=== PATIENT | male | born 1975 | race African-American/Black ===

== ENCOUNTER → 2017-04-09 18:26 | Outpatient (CLI) | payer MEDICAID, SELFPAY | PROVIDERS: Visit Provider Podiatrist | DX: L02.416 Cutaneous abscess of left lower limb (principal) | CPT/HCPCS: 87070; 87077; 87205 ==

== ENCOUNTER 2017-04-22 13:50 | Day surgery (SDC) | payer MEDICAID, SELFPAY ==
--- NOTE | 2017-04-22 13:59 | EKG12_ITS ---
Test Reason : PRE-OP Blood Pressure : / mmHG Vent. Rate : 077 BPM Atrial Rate : 077 BPM P-R Int : 168 ms QRS Dur : 092 ms QT Int : 380 ms P-R-T Axes : 077 020 056 degrees QTc Int : 430 ms Normal sinus rhythm Right atrial enlargement Voltage criteria for left ventricular hypertrophy Abnormal ECG When compared with ECG of 22-OCT-2015 23:41, No significant change was found Confirmed by NEISHA PRATT, KRISTAL ([id number]), market editor MANUEL AKERS ([id number]) on 04/24/2017 2:36:29 PM Referred By: Sergio Neil Confirmed By:KRISTAL DRIVER MD
--- NOTE | 2017-04-22 14:00 | RAD_ITS ---
STUDY: X-RAY - LEFT ANKLE REASON FOR EXAM: Male, 41 years old. Bone biopsy and also debridement. TECHNIQUE: 3 cone-down view(s) of the ankle were obtained intraoperatively. COMPARISON: None. FINDINGS: A metallic probe is seen in the distal portion of the tibia. RAD/Ankle 2 Views IMPRESSION: Fluoroscopic imaging provided for bone biopsy and also debridement. Electronically Signed: Dakota Blackwell MD at 9:13 EST Tel [phone], Service support ,
--- NOTE | 2017-04-22 14:00 | BONBX_PTH ---
PATIENT: JAKUB TRAN LOC: [facility] [place] U#:[id number] AGE/SX: 41/M ROOM: RE04/22/[address]: Dr. Sergio Neil DPM : 1975 BED: DIS: 04/22/2017 SPEC #: [id number] RECD: 04/23/17 08:39 STATUS: JASVIR REKimberly #: [id number] KHURRAM: 04/22/17 14:[address]: Sergio Neil DEPT: SURGICAL PATHOLOGY RECD BY: Chin Brooks ENTERED: 04/23/17 12:21 SP TYPE: Bone OTHR DR: No Primary Care Phys Tissues: Tibia, NOS Procedures: Decalcification bone/plaque Surgery Specimen Level IV HEADER OPERATION: Bone biopsy, ankle PRE-OP DIAGNOSIS: Nonunion left ankle TISSUE SUBMITTED: Left ankle bone distal tibia MICROSCOPIC DIAGNOSIS Left distal tibia/ankle bone, biopsy: Bone with osteonecrosis. Fibrous tissue with reactive change. AM:fabrice 04/29/17 COMMENT Case has been reviewed in consultation with Dr. Cardozo who concurs with the above diagnosis. IDC:KATE MICROSCOPIC DESCRIPTION Slides are reviewed. GROSS DESCRIPTION Received in fixative is one container labeled with the patient's name and designated left ankle bone distal tibia. The specimen consists of multiple fragments of bone that in aggregate measure 1.5 x 1 x 0.3 cm. The entire specimen is submitted in one cassette after decalcification. / SJ:fabrice 04/23/17 TC:5 CPT: 15016, 01905
[2017-04-22 14:05] VITALS: BP 140/80; PULSE 78; RESP 16; TEMP 36.9; O2SAT 96; BMI 19.7
[2017-04-22 14:20] LABS: Absolute Lymphocyte Count 2.41 X10^3/ul (0.83-4.51); Absolute Neutrophil Count 3.3 X10^3/uL (2.0-7.7); Basophil# 0.01 X10^3/uL; Basophil% 0.2 % (0-1); Eosinophil# 0.04 X10^3/uL; Eosinophils% 0.6 % (0-5); Hemoglobin 14.7 g/dl (13.0-16.5); Lymphocyte # 2.41 X10^3/ul (4.0); Lymphocyte % 37.5 % (19-41); Mean Corp Hgb Conc 35.9 g/gl (32-36); Mean Corpuscular Hgb 32.4 pg (27.0-32.0); Mean Corpuscular Volume 90.3 fL (80-94); Mean Platelet Vol. 10.6 fl (6.2-12.0); Monocyte# 0.61 X10^3/uL; Monocyte% 9.5 % (0-10); Neutrophil # 3.34 X10^3/uL (2.7-7.7); Neutrophil % 51.9 % (47-70); POSITIVE COUNT NO; POSITIVE DIFFERENTIAL NO; POSITIVE MORPHOLOGY NO; Platelet Count 181 K/mm3 (150-450); RBC Distribution Width CV 13.4 % (11.6-14.6); Red Blood Count 4.54 M/mm3 (4.6-6.2); White Blood Count 6.4 K/mm3 (4.4-11.0)
[2017-04-22 14:31] LABS: ALB/GLOB Ratio 1.1 RATIO (0.9-2.4); AST(SGOT) 17 U/L (15-37); Alanine Aminotransfer ALT/SGPT 18 U/L (16-61); Albumin, Serum 3.8 g/dL (3.2-5.0); Alkaline Phosphatase 90 U/L (45-117); Anion Gap 8 (5-15); BUN 14 mg/dL (7-18); BUN/Creat Ratio 14.3 RATIO (10-20); Calcium,Total 8.4 mg/dL (8.5-10.1); Chloride 106 mmol/L (98-107); Creatinine, Serum 0.98 mg/dL (0.70-1.30); EST Glomerular Filtration Rate 90 mL/min (>60); Est Glom Filt Rate - Afr Amer 108 mL/min (>60); Estimated Creatinine Clearance 96.23 ml/min; Globulin 3.5 g/dL (2.2-4.2); Glucose 94 mg/dL (74-106); Potassium 3.2 mmol/L (3.5-5.1); Protein, Total 7.3 g/dL (6.4-8.2); Sodium Level 140 mmol/L (136-145)
[2017-04-22] MEDS: Bupivacaine 0.25% 30 ML Vial (16:02)
[2017-04-22] MEDS: Cefazolin 2 GM in 0.9% Normal Saline 100 ML IV (16:02)
--- NOTE | 2017-04-22 16:10 | PCM.DC.POD ---
Discharge Diet: Light diet - advance as tolerated Discharge Activity: May Not Drive Weight Bearing Status: Partial weight bearing - Use crutches and CAM Walker boot left ankle Keep extremity elevated above heart level: Left Leg - Keep left foot elevated for at least 50 minutes of every hour Call your doctor if your incision/area has: Continuous Slow Oozing, Sudden Increased Bleeding, Foul Smelling Discharge Call your doctor if you observe: Fever of 101 or Higher, Coldness, Increased Pain, Shortness of breath, Chest pain, Increased palpitations (irregular heartbeat), Calf discomfort, Uncontrolled pain Cleanse incision/area with: Do not get Incision Wet, Keep Dressing Clean & Dry Allergies/Adverse Reactions: Allergies No Known Allergies Allergy (Verified 04/19/17 13:01) Medications to take at Discharge Hydrocodone Bitart/Apap 5-325 [[place] 5/325] 1 - 2 tablet PO Q4H PRN PRN #20 tablet 01/29/17 Amoxicillin/Potassium Clav [Augmentin 875-125 Tablet] 1 tab PO BID 04/19/17 Hydrocodone/Acetaminophen [Vicodin 5-300 mg Tablet] 1 tab PO Q6H PRN PRN 3 Days #15 tab 04/22/17 The following prescriptions were given: Hydrocodone/Acetaminophen [Vicodin 5-300 mg Tablet] 1 tab PO Q6H PRN PRN 3 Days #15 tab PRN Reason: Pain Primary Care Physician: Care Physician,No Primary [Primary Care Provider] - Please Follow Up With: Sergio Neil DPM When: within 1 week or sooner if needed
--- NOTE | 2017-04-22 16:14 | OP.PCM_ITS ---
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 He has developed 2 episodes of drainage from the site. Due to this, we discussed bone biopsy first for further evaluation. The rationale of the procedure was discussed with him in detail, reviewed the possible benefits vs risks, and potential complications. Reviewed the goals and expectations. Reviewed alternative options. Reviewed estimated healing time/ post operative course. The patient expressed understanding and agreement and elected to proceed forward with the biopsy for further evaluation at this time. The consent forms were reviewed with him, and he freely signed them. All of his questions were answered. Operative procedure: The patient was brought back into the operating room and was placed on the operating room in the supine position. The patient was secured to the operating room table with a safety belt around his waist. A well padded mid calf tourniquet was applied, but was not inflated or used. The patient received general anesthesia per the anesthesia team. The left lower extremity was scrubbed, prepped, and draped in the usual aseptic fashion. A time out was performed and the patient was properly identified and the surgical plan was confirmed. Pre operative antibiotics were not given until after the biopsy taken. Further attention was directed to the left ankle. There was noted to be a very small residual ulceration to the anterior ankle, measuring 1mm x 1mm, with healthy viable margins and granular base. Using a 15 scalpel blade a small linear longitudinal incision was made to the anterior lateral aspect of the ankle joint, medial to were the ulceration was located. Blunt dissection was completed down through the subcutaneous tissue layer to the anterior lateral ankle capsule, which was dissected to open up the ankle joint. Under the guidance of intra-operative fluoroscopy, and using the [employer] bone biopsy tray, 2 cylindrical pieces of bone were obtained from the nonunion site of the distal tibial plafond. The bone from the site was noted to be yellow , softer, and fibrotic consistent with a nonunion. These were sent to pathology and microbiology separately for further evaluation. There was no noted purulence , no visible abscess, no cellulitis present. Fluoroscopic images were saved and placed in patient's chart. The site was flushed out with copious amounts of normal saline solution. The skin was reapproximated using 3-0 Nylon. 0.25% Bupivacaine was given as a local nerve block around the surgical site and ankle for post operative pain control. A dressing was applied which consisted of Betadine soaked Adaptic, 4x4 gauze, Kerlix and cydney bandage. The patient tolerated the above procedure well and the anesthesia well with no complications. He was transported from the operating room to the recovery room with vital signs stable and in good condition. Post operative instructions were reviewed with patient and his family today. Keep the dressing clean, dry and intact. Keep ankle protected in CAM Walker, and use crutches. A prescription for Vicodin 5mg/300mg 1 tab PO q 6 hours prn pain was provided for post operative pain control. He is to follow up within 1 week or sooner if needed. Grafts/Implants Used: None - Complications None
[2017-04-22 16:27] VITALS: BP 121/82; BP 140/80; PULSE 66; RESP 16; TEMP 36.5; O2SAT 99
[2017-04-22 16:30] VITALS: BP 107/81; BP 140/80; PULSE 68; RESP 16; O2SAT 93
[2017-04-22 16:45] VITALS: BP 107/81; BP 140/80; PULSE 66; RESP 16; O2SAT 98
[2017-04-22 17:00] VITALS: BP 126/77; BP 140/80; PULSE 77; RESP 16; TEMP 36.4; O2SAT 100
[2017-04-22 17:41] VITALS: BP 140/80
== END 2017-04-22 17:43 | disposition home or self-care (01) ==
LOC: SDC 13:51
PROVIDERS: Visit Provider Podiatrist
PROC: (CPT 20240; principal; 2017-04-22 13:45)
DX: L97.324 Non-pressure chronic ulcer of left ankle with necrosis of bone (principal); S82.872K Displaced pilon fracture of left tibia, subsequent encounter for closed fracture with nonunion; X58.XXXD Exposure to other specified factors, subsequent encounter; I25.2 Old myocardial infarction; F12.90 Cannabis use, unspecified, uncomplicated; F17.200 Nicotine dependence, unspecified, uncomplicated
CPT/HCPCS: 01480; 20240; 73600; 76000; 80053; 85025; 87015; 87070; 87075; 87102; 87116; 87205; 87206; 88305; 88307; 88311; 93005; J7120; J2405

== ENCOUNTER → 2017-06-13 18:02 | Outpatient (CLI) | payer MEDICARE, MEDICAID, SELFPAY | PROVIDERS: Family Provider Family Medicine; PCP Family Medicine; Visit Provider Podiatrist | DX: L02.416 Cutaneous abscess of left lower limb (principal) | CPT/HCPCS: 87070; 87205 ==

== ENCOUNTER 2017-06-28 13:08 | Inpatient (IN) | payer MEDICARE, MEDICAID, SELFPAY ==
[2017-06-28] VITALS (9 sets, daily range): BP systolic 116–148; BP diastolic 57–78; PULSE 72–92; RESP 14–18; TEMP 36.4–37.1; O2SAT 94–100; BMI 20.2; BMI 20.4
--- NOTE | 2017-06-28 | BON_PTH ---
PATIENT: JAKUB TRAN LOC: [facility] U#:[id number] AGE/SX: 41/M ROOM: NC321 RE06/29/[address]: Dr. Avis Xiao MD : 1975 BED: 1 DIS: 06/29/2017 SPEC #: [id number] RECD: 06/28/17 14:52 STATUS: JASVIR REKimberly #: [id number] KHURRAM: 06/28/17 00:[address]: Sergio Neil DEPT: SURGICAL PATHOLOGY RECD BY: Pedro Pablo Enamorado ENTERED: 06/28/17 14:52 SP TYPE: Bone OTHR DR: Dr. Ya Cavazos MD Tissues: Ankle, NOS Procedures: Decalcification bone/plaque Surgery Specimen Level III HEADER OPERATION: Left tibial pilon fracture nonunion debridement with ankle fracture PRE-OP DIAGNOSIS: Left ankle fracture TISSUE SUBMITTED: Debrided left ankle, nonunion MICROSCOPIC DIAGNOSIS Debrided left ankle, nonunion: Pieces of bone with reactive changes and callous formation, clinically ankle fracture. Negative for acute osteomyelitis. KATE:fabrice 07/03/17 MICROSCOPIC DESCRIPTION Slides are reviewed. GROSS DESCRIPTION Received in fixative is one container labeled with the patient's name and designated debrided left ankle nonunion. The specimen consists of multiple pieces of bone and bone reamings that in aggregate measure 4.5 x 4.5 x 1.5 cm. Validation Scientist tissue is submitted in two cassettes after decalcification. / KATE:fabrice 06/28/17 TC:5 CPT: 14609, 01724
[2017-06-28] MEDS: Cefazolin 2 GM in 0.9% Normal Saline 100 ML IV (07:23)
--- NOTE | 2017-06-28 07:30 | RAD_ITS ---
STUDY: X-RAY - LEFT ANKLE REASON FOR EXAM: Left tibial pylon fracture with nonunion. TECHNIQUE: 2 fluoroscopic view(s) of the ankle. COMPARISON: None. FINDINGS: There is orthopedic hardware transfixing tibiotalar and posterior subtalar arthrodesis and chronic fracture of the distal tibia. There is also orthopedic hardware transfixing a healing fracture of the distal fibular diaphysis. Electronically Signed: Tyron Abbott MD at 13:52 EDT Tel , Service support , RAD/Ankle 2 Views
[2017-06-28] MEDS: levoFLOXacin IV 750 MG/150 ML BAG 100 MG IV (07:40)
[2017-06-28] MEDS: Heparin 10,000 UNITS/10 ML Vial 10000 UNITS (08:15)
[2017-06-28 08:19] LABS: Vitamin D,25 Hydroxy 10.7 ng/mL (29.95-100.01)
[2017-06-28] MEDS: Bupivacaine Mpf 0.5% 30 ML VIAL (11:45)
--- NOTE | 2017-06-28 12:03 | PCM.OPRPT ---
Report of Operation Date of Procedure: 06/28/17 - Laurence Neil DPM Pre-Operative Diagnosis: Tibial Pilon fracture nonunion left Post-Operative Diagnosis: Same Surgery/Procedure Performed:: Debridement of left tibial pilon fracture nonunion with tibiotalocalcaneal arthrodesis. Bone marrow aspiration and placement of bone graft at arthrodesis site, left. 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 He has developed several episodes of drainage from the site. Bone biopsy was negative for growth, negative for osteomyelitis. Due recurrent symptoms and given findings, he has elected to proceed forward with debridement of the nonunion with bone grafting, bone marrow aspiration, and fixation of the site. The rationale of the procedure was discussed with him in detail, reviewed the possible benefits vs risks, and potential complications. Reviewed the goals and expectations. Reviewed alternative options. Reviewed estimated healing time/post operative course. The patient expressed understanding and agreement and elected to proceed forward with the biopsy for further evaluation at this time. The consent forms were reviewed with him, and he freely signed them. All of his questions were answered. Operative procedure: The patient was brought back into the operating room and was placed on the operating room in the supine position. The patient was secured to the operating room table with a safety belt around his waist. The patient received 2 grams of IV Cephazolin as well as 750mg of IV Levaquin for antibiotic prophylaxis. A well padded pneumatic tourniquet was applied around his left thigh. The patient received general anesthesia per the anesthesia team. The left lower extremity was scrubbed, prepped, and draped in the usual aseptic fashion. Small ulceration anterior ankle was covered with a sterile post op site bandage The patient was carefully placed into the prone position on the operating room table, being sure to pad and protect all [place] prominences and all important areas on the patient. A timeout was performed and the patient was properly identified and the surgical plan was confirmed. A Jamshidi needle was inserted into the proximal medial tibia, a total of 60mL of bone marrow aspirate was obtained. This was spun down to concentrated bone marrow aspirate to be mixed with the cancellous bone chips. The left foot was elevated for 3 minutes and the left thigh pneumatic tourniquet was inflated to 350mmHg. Further attention was directed to the left ankle. Using a 15 scalpel blade an incision was made overlying the posterior subtalar and ankle joints, posterior to the Achilles tendon. Careful dissection was completed down to the Achilles tendon. The Achilles tendon was incised in Z fashion, splitting the tendon longitudinally down the middle. There was a proximal medial arm and a distal lateral arm to complete the Z tenotomy. Blunt direction was completed down to the posterior subtalar joint and ankle joint capsules, the medial neurovascular bundle was protected out of the away medially. The flexor hallucis longus tendon and muscle belly were identified and reflected medially as well. The posterior ankle joint and subtalar joint capsules were visualized. There was noted to be hypertrophy and thickening of the ankle joint capsule. The capsules were incised using a 15 scalpel blade and reflected from the posterior aspect, exposing the joint surfaces, along with exposing the tibial pilon nonunion site. There was noted to be nonviable fibrotic avascular tissue to the nonunion site. There was noted to be residual Hydroset bone cement present. There was no purulence or evidence of abscess present. The nonunion site was debrided down to healthy, viable tissue, the debrided tissue was sent to pathology as specimen. All of the cartilage of the ankle joint was debrided and removed from the bone ends, this was completed down to healthy viable bleeding bone. The subtalar joint was visualized, the joint surfaces were prepped by removing all of the cartilage from the subtalar joint. All of the cartilage of the subtalar joint was debrided and removed from the bone ends, this was completed down to healthy viable bleeding bone. This was completed using curettes, bone cutting rongeurs, as well as a bone bur being sure not to create osteonecrosis. The site was flushed out with copious amounts of normal saline solution. The ankle joint and the subtalar joint surfaces were drilled / fenestrated with a 3.0mm drill multiple times, also they were prepped with an small osteotome to enhance and aid vascularity and fusion to the arthrodesis sites. The arthrodesis surfaces of the ankle and subtalar joints were coated with [employer] Augment graft to also aid the healing of the arthrodesis. Due to the significant nonunion site, which was debrided out, there was a residual void to the ankle fusion site. The nonunion site as well as the arthrodesis sites were packed with cancellous bone allograft mixed with the bone marrow aspirate concentrate to aid healing. A total of 50mL of cancellous bone allograft was used, most of which was needed for the ankle arthrodesis and nonunion debridement site to fill the void. The foot was placed at 90 degrees to the leg, and the heel in slight valgus, and the prepped ankle and subtalar joints surfaces were brought together. They were fixated using rigid open reduction internal fixation technique. First one 7.0mm partially [employer] 120mm in length screw was placed from the posterior plantar calcaneus going up through the subtalar and ankle arthrodesis sites to the anterior tibia. A washer was used on the screw head. There was excellent bite and compression across the arthrodesis sites. One [employer] posterior TTC locking plate with a total of eight locking [employer] screws and two nonlocking cortical [employer] screws were used to secure the plate across the arthrodesis sites. Once hardware was placed, there was excellent stability present with good alignment present. Alignment and placement were confirmed using intra operative fluoroscopy. The ankle and subtalar joints were rigidly fixated, very stable, and in good alignment. The talus noted to be under the tibial, and clinically the foot was plantigrade with neutral flexion, heel in slight valgus position. The surgical site was flushed out with copious amounts of normal saline solution. The thigh pneumatic tourniquet was deflated and there was immediate return of warmth and perfusion. CFT < 2 seconds to all toes, and normal temperature present. Pedal pulses were intact. Hemostasis was achieved prior to closure. The joint capsules and deep fascia layer were reapproximated using 2-0 Vicryl, the sides of the Achilles tendon were brought together and reapproximated using 3-0 Vicryl, the subcutaneous tissue layer was reapproximated using 3-0 Vicryl. The skin was reapproximated using 3-0 Nylon. 10mL of 0.5% Bupivacaine was given as a saphenous nerve block. A dressing was applied which consisted of Betadine soaked Adaptic, 4x4 gauze, Kerlix, cydney bandages, and a well padded below knee posterior splint secured with cydney bandages. The patient received a left lower extremity popliteal block by the anesthesia team at the end of the procedure. The patient tolerated the procedure and the anesthesia well with no complications. The patient was transported from the operating room to the recovery room with vital signs stable and in good condition. The patient will be admitted for post operative pain control and observation. I spoke with the hospitalist, who agreed with admission. Post operative orders were placed. Post operative xrays of the ankle (3 views) as well as 2 views of the calcaneus (including calcaneal axial) were obtained in the recovery room which were reviewed; they confirmed TTC arthrodesis in good alignment, with bone grafting and stable fixation across the arthrodesis sites, no complications seen. He will be followed as an inpatient. Grafts/Implants Used: Cancellous Bone Chips mixed with concentrated bone marrow aspirate - Complications None
--- NOTE | 2017-06-28 12:18 | RAD_ITS ---
STUDY: X-RAY - LEFT CALCANEUS REASON FOR EXAM: Postop. TECHNIQUE: 2 view(s) of the calcaneus were obtained. COMPARISON: Radiographs 01/29/2017. FINDINGS: There is orthopedic hardware transfixing tibiotalar and posterior subtalar arthrodesis and chronic fracture of the distal tibia. There is an overlying cast. Electronically Signed: Tyron Abbott MD at 13:53 EDT Tel , Service support , RAD/Calcaneus min 2 Views
--- NOTE | 2017-06-28 12:35 | RAD_ITS ---
STUDY: X-RAY - LEFT ANKLE REASON FOR EXAM: Postop. TECHNIQUE: 3 view(s) of the ankle. COMPARISON: Radiographs 01/29/2017. FINDINGS: There is orthopedic hardware bridging a tibiotalar and posterior subtalar arthrodesis and chronic fracture of the distal tibia. There is intact orthopedic hardware bridging a healing fracture of the distal fibular diaphysis. There are postoperative changes from previous external fixation. There is an overlying cast. RAD/Ankle min 3 Views IMPRESSION: Tibiotalar and posterior subtalar arthrodesis. Healing fracture of the distal fibular diaphysis. Electronically Signed: Tyron Abbott MD at 13:52 EDT Tel , Service support ,
[2017-06-28 12:48] LABS: Hematocrit 39.1 % (40-54); Hemoglobin 13.2 g/dl (13.0-16.5)
--- NOTE | 2017-06-28 13:50 | NURSING ---
Pt arrived from PACU. Aware of strict non-weight bearing and that heel needs to be offloaded at all times. Additional pillow provided. This nurse completed obtaining vitals and pt found to have leg bent at the knee with heel into pillow. Bleeding noted to outside of cydney. This nurse assisted with repositioning leg on pillow and reminded pt he needed to have heel off of mattress. Pt verbalizes understanding.
[2017-06-28] MEDS: 0.9% NaCl Peripheral Flush Adult/Peds IV ×3 (15:07→17:45)
[2017-06-28] MEDS: DiphenhydrAMINE 25 MG Capsule 50 MG PO (15:44)
--- NOTE | 2017-06-28 16:30 | PCM.HP.STD ---
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 Neil. The patient has had no union of his left ankle fracture and underwent left ankle fusion and subtalar joint effusion . He is admitted to the hospital for postoperative care and pain control. I saw him his only complaint was his surgical pain, he is requesting more IV analgesia. He denies any chest pain, shortness of breath , palpitations or rapid heartbeat. 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 Bone biopsy 08/03/15. I+D ankle 10/21/15. Psychiatric History: No pertinent psych hx Smoking Status: Current every day smoker Tobacco Use: Cigarettes - *Family History Maternal History Items: Asthma Paternal History Items: Hypertension, No pertinent history Review of Systems Comment: All Systems were reviewed with pertinent positives mentioned in the HPI above. VTE Information - Inpt Only VTE Present on Admission: No VTE Mechan Device Prophylaxis: SCD's VTE Pharm Prophylaxis ordered?: No - Physical Exam General: Alert, Oriented x3 HEENT: Atraumatic Oral: Moist Mucosa Neck: Supple Lungs: Clear to auscultation Cardiovascular: Regular rate, Normal S1, Normal S2 Abdomen: Bowel Sounds Present, Soft, Non Tender Extremities: No edema Vital Signs Temp Pulse Resp BP Pulse Ox 98.3 F 78 18 116/71 99 06/28/17 15:43 06/28/17 15:43 06/28/17 15:43 06/28/17 15:43 06/28/17 15:43 Oxygen Delivery Method Room Air Weight: 70.307 kg Body Mass Index (BMI) 20.4 Intake and Output for Last 24 Hours 06/26/17 06/27/17 06/28/17 23:59 23:59 23:59 Intake Total 1900 / 1900 Output Total 400 / 400 Balance 1500 / 1500 Laboratory Tests Past 24 Hrs 06/28/17 06/28/17 06:10 12:35 Hgb 13.2 Hct 39.1 L Vitamin D 25-Hydroxy 10.7 L Assessment/Plan 1. Status post left ankle surgery; postoperative management per Dr. Neil. We will optimize pain control 2. Nicotine dependency; the patient is recommended to quit smoking, will place him on nicotine transdermal patch. 3. DVT prophylaxis with Lovenox. Code Visit Inpatient E&M: 99493 Init Hosp L2 OBSV E&M: 85344 Initial observation care L3
[2017-06-28] MEDS: HYDROmorphone 1 MG/ML Syringe IV ×2 (16:35→20:05)
[2017-06-28] MEDS: Cefazolin 1 GM/50 ML BAG IV ×2 (16:36→23:27)
[2017-06-28] MEDS: Ketorolac 15 MG/ML Vial IV ×2 (17:45→23:26)
--- NOTE | 2017-06-28 17:48 | NURSING ---
LT FOOT/LEG DRSG W/NAUN WRAP D& (REINFORCED 2 HOURS AGO & STILL DRY).
[2017-06-29] MEDS: HYDROmorphone 1 MG/ML Syringe IV ×2 (00:56→13:01)
[2017-06-29 02:29] VITALS: BP 129/77; PULSE 95; RESP 18; TEMP 36.8; O2SAT 99
[2017-06-29] MEDS: Ketorolac 15 MG/ML Vial IV ×3 (06:13→17:48)
[2017-06-29] MEDS: Enoxaparin 40 MG/0.4 ML Syringe SC (06:14)
[2017-06-29] MEDS: Cefazolin 1 GM/50 ML BAG IV (06:44)
--- NOTE | 2017-06-29 08:39 | NURSING ---
Pt disconnected the iv, and is off the unit. When nursed came entered hospital this am pt was outside, smoking. This was reported to Dr. Neil, he said pt had told him he would not smoke and Dr. Neil said he would talk to pt that he is not allowed to go outside.Syeda [facility] charge nurse called security.
--- NOTE | 2017-06-29 08:42 | PCM.PROGNOTE ---
Subjective: Patient was seen this morning for follow up debridement of tibial pilon nonunion, grafting and TTC arthrodesis. He relates block is not completely worn off yet, but heel is sore. Otherwise he denies any other complaints or problems. It was reported patient did go outside to smoke. - Physical Exam General: Alert, Oriented x3, Cooperative, No apparent distress Extremities: Capillary Refill Less than 3 Seconds, No Calf Tenderness, Peripheral Pulses Normal, - - Left foot/ankle: Incision well coapted, no dehiscence, no fluctuance, no crepitus, no necrosis, no cellulitis no evidence of infection; no evidence of DVT or post op complication, subtalar and ankle joint rigid and nonunion site rigid consistent with arthrodesis and debridement/grafting and fixation. Motor function intact to left foot, he does report some residual numbness from lower extremity block. Musculoskeletal: No Tenderness to Palpation of Joints or Extremities Vital Signs Temp Pulse Resp BP Pulse Ox 98.3 F 95 18 129/77 H 99 06/29/17 02:29 06/29/17 02:29 06/29/17 02:29 06/29/17 02:29 06/29/17 02:29 Oxygen Delivery Method Room Air Weight: 70.307 kg Body Mass Index (BMI) 20.4 Intake and Output for Last 24 Hours 06/27/17 06/28/17 06/29/17 23:59 23:59 23:59 Intake Total 2095 / 2095 565 / 565 Output Total 400 / 400 Balance 1695 / 1695 565 / 565 Laboratory Tests Past 24 Hrs 06/28/17 12:35 Hgb 13.2 Hct 39.1 L Medical Necessity - Tobacco Use Smoking Status: Current every day smoker Tobacco Use: Cigarettes Assessment/Plan Left tibial pilon nonunion s/p debridement, grafting and TTC (ankle and subtalar) arthrodesis on 06/28/17 Vitamin D Deficiency Changed dressing - site healthy and viable, no evidence of infection, DVT or post op complication. Applied dry, clean, gauze, Kerlix, cydney dressing. Keep dressing clean, dry and intact. No weightbearing left foot, keep left foot elevated. Continue with pain management, continue to monitor and if pain controlled on oral pain medication once block is worn off okay to discharge home - likely tomorrow. Lovenox 40mg subcutaneous for DVT prophylaxis. Vitamin D 50,000 units once a week for Vitamin D Deficiency I have reviewed with patient the importance of smoking cessation in great detail. Appreciate medicine team's assistance.
--- NOTE | 2017-06-29 08:58 | PN_ITS ---
Subjective: Patient was seen this morning for follow up debridement of tibial pilon nonunion , grafting and TTC arthrodesis. He relates block is not completely worn off yet , but heel is sore. Otherwise he denies any other complaints or problems. It was reported patient did go outside to smoke. - Physical Exam General: Alert, Oriented x3, Cooperative, No apparent distress Extremities: Capillary Refill Less than 3 Seconds, No Calf Tenderness, Peripheral Pulses Normal, - - Left foot/ankle: Incision well coapted, no dehiscence, no fluctuance, no crepitus, no necrosis, no cellulitis no evidence of infection; no evidence of DVT or post op complication, subtalar and ankle joint rigid and nonunion site rigid consistent with arthrodesis and debridement/ grafting and fixation. Motor function intact to left foot, he does report some residual numbness from lower extremity block. Musculoskeletal: No Tenderness to Palpation of Joints or Extremities Vital Signs Temp Pulse Resp BP Pulse Ox 98.3 F 95 18 129/77 H 99 06/29/17 02:29 06/29/17 02:29 06/29/17 02:29 06/29/17 02:29 06/29/17 02:29 Oxygen Delivery Method Room Air Weight: 70.307 kg Body Mass Index (BMI) 20.4 Intake and Output for Last 24 Hours 06/27/17 06/28/17 06/29/17 23:59 23:59 23:59 Intake Total 2095 / 2095 565 / 565 Output Total 400 / 400 Balance 1695 / 1695 565 / 565 Laboratory Tests Past 24 Hrs 06/28/17 12:35 Hgb 13.2 Hct 39.1 L Medical Necessity - Tobacco Use Smoking Status: Current every day smoker Tobacco Use: Cigarettes Assessment/Plan Left tibial pilon nonunion s/p debridement, grafting and TTC (ankle and subtalar ) arthrodesis on 06/28/17 Vitamin D Deficiency Changed dressing - site healthy and viable, no evidence of infection, DVT or post op complication. Applied dry, clean, gauze, Kerlix, cydney dressing. Keep dressing clean, dry and intact. No weightbearing left foot, keep left foot elevated. Continue with pain management, continue to monitor and if pain controlled on oral pain medication once block is worn off okay to discharge home - likely tomorrow. Lovenox 40mg subcutaneous for DVT prophylaxis. Vitamin D 50,000 units once a week for Vitamin D Deficiency I have reviewed with patient the importance of smoking cessation in great detail. Appreciate medicine team's assistance.
[2017-06-29 09:05] VITALS: BP 130/62; PULSE 86; RESP 16; TEMP 37.1; O2SAT 100
[2017-06-29] MEDS: Acetaminophen 500 MG Tablet PO ×2 (09:11→16:14)
[2017-06-29] MEDS: oxyCODONE 5 MG Tablet 10 MG PO ×2 (09:11→16:15)
--- NOTE | 2017-06-29 11:06 | PCM.PN.HOSP ---
Subjective: Patient seen this morning. He is status post debridement of tibial pilon nonunion, grafted TTC arthrodesis. He complains of 7/10 pain in his left ankle. He states pain block has not worn off completely yet. He has no other complaints. He denies any fever or chills, any cough, chest pain, shortness of breath, abdominal pain, diarrhea vomiting. Review of systems otherwise negative. Vitals/I&O's: Vital Signs Temp Pulse Resp BP Pulse Ox 98.7 F 86 16 130/62 H 100 06/29/17 09:05 06/29/17 09:05 06/29/17 09:05 06/29/17 09:05 06/29/17 09:05 Oxygen Delivery Method Room Air Weight: 155 lb Body Mass Index (BMI) 20.4 Intake and Output for Last 24 Hours 06/27/17 06/28/17 06/29/17 23:59 23:59 23:59 Intake Total 2095 / 2095 565 / 565 Output Total 400 / 400 Balance 1695 / 1695 565 / 565 General: Alert, Oriented x3, Cooperative, No apparent distress HEENT: Atraumatic, PERRLA, EOMI, Normocephalic Oral: Moist Mucosa Neck: Supple, No JVD, Negative Carotid Bruits Lungs: Clear to auscultation, Normal air movement, No rhonchi, No wheeze, No rales Cardiovascular: Regular rate, Regular Rhythm, Normal S1, Normal S2, No murmurs Abdomen: Bowel Sounds Present, Soft, Non Tender, Non-Distended, No Hepato-splenomegaly Extremities: No clubbing, No cyanosis, No edema, Capillary Refill Less than 3 Seconds, - - Left ankle wrapped in bandage. Able to flex and extend the left ankle. Skin: No rashes, No breakdown Musculoskeletal: No Tenderness to Palpation of Joints or Extremities Lymphatic: No Cervical, Supraclavicular, or Inguinal Adenopathy Neurological: Cranial nerves II-XII grossly intact, Neuro grossly intact Psych/Mental Status: Normal Affect, Appropriate, Alert and oriented to time, place, person, mood and affect Laboratory Results 06/28/17 12:35: Hgb 13.2, Hct 39.1 L Current Medications Acetaminophen (Tylenol) 500 mg PO Q4H PRN PRN PRN Reason: PAIN Last Admin: 06/29/17 09:11 Dose: 500 mg Diphenhydramine HCl (Benadryl) 50 mg PO Q6H PRN PRN PRN Reason: ITCHING Last Admin: 06/28/17 15:44 Dose: 50 mg Enoxaparin Sodium (Lovenox) 40 mg SC DAILY [facility] Last Admin: 06/29/17 06:14 Dose: 40 mg Ergocalciferol (Vitamin D) 50,000 unit PO Q7D [facility] Last Admin: 06/29/17 02:03 Dose: Not Given Hydromorphone HCl (Dilaudid Inj) 1 mg IV Q3H PRN PRN PRN Reason: SEVERE PAIN (6-10/10) Last Admin: 06/29/17 00:56 Dose: 1 mg Ketorolac Tromethamine (Toradol) 15 mg IV Q6 [facility] Stop: 06/29/17 18:01 Last Admin: 06/29/17 06:13 Dose: 15 mg Oxycodone HCl (Oxyir) 10 mg PO Q6H PRN PRN PRN Reason: SEVERE PAIN (6-10/10) Last Admin: 06/29/17 09:11 Dose: 10 mg Sodium Chloride () 5 - 30 ml IV UD PRN PRN Reason: SALINE FLUSH Last Admin: 06/28/17 17:45 Dose: 10 ml Medical Necessity - Tobacco Use Smoking Status: Current every day smoker Tobacco Use: Cigarettes Assessment/Plan 1. Status post left ankle surgery Stable. Postoperative management as per podiatry. Ketorolac and oxycodone for pain control. 2. Nicotine dependency; The nicotine patch. Patient counseled to quit smoking. 3. DVT prophylaxis: Lovenox. Disposition: For likely discharge tomorrow. Code Visit OBSV E&M: 87127 Subsequent observation care L2
--- NOTE | 2017-06-29 11:10 | PN_ITS ---
Subjective: Patient seen this morning. He is status post debridement of tibial pilon nonunion, grafted TTC arthrodesis. He complains of 7/10 pain in his left ankle. He states pain block has not worn off completely yet. He has no other complaints. He denies any fever or chills, any cough, chest pain, shortness of breath, abdominal pain, diarrhea vomiting. Review of systems otherwise negative. Vitals/I&O's: Vital Signs Temp Pulse Resp BP Pulse Ox 98.7 F 86 16 130/62 H 100 06/29/17 09:05 06/29/17 09:05 06/29/17 09:05 06/29/17 09:05 06/29/17 09:05 Oxygen Delivery Method Room Air Weight: 155 lb Body Mass Index (BMI) 20.4 Intake and Output for Last 24 Hours 06/27/17 06/28/17 06/29/17 23:59 23:59 23:59 Intake Total 2095 / 2095 565 / 565 Output Total 400 / 400 Balance 1695 / 1695 565 / 565 General: Alert, Oriented x3, Cooperative, No apparent distress HEENT: Atraumatic, PERRLA, EOMI, Normocephalic Oral: Moist Mucosa Neck: Supple, No JVD, Negative Carotid Bruits Lungs: Clear to auscultation, Normal air movement, No rhonchi, No wheeze, No rales Cardiovascular: Regular rate, Regular Rhythm, Normal S1, Normal S2, No murmurs Abdomen: Bowel Sounds Present, Soft, Non Tender, Non-Distended, No Hepato- splenomegaly Extremities: No clubbing, No cyanosis, No edema, Capillary Refill Less than 3 Seconds, - - Left ankle wrapped in bandage. Able to flex and extend the left ankle. Skin: No rashes, No breakdown Musculoskeletal: No Tenderness to Palpation of Joints or Extremities Lymphatic: No Cervical, Supraclavicular, or Inguinal Adenopathy Neurological: Cranial nerves II-XII grossly intact, Neuro grossly intact Psych/Mental Status: Normal Affect, Appropriate, Alert and oriented to time, place, person, mood and affect Laboratory Results 06/28/17 12:35: Hgb 13.2, Hct 39.1 L Current Medications Acetaminophen (Tylenol) 500 mg PO Q4H PRN PRN PRN Reason: PAIN Last Admin: 06/29/17 09:11 Dose: 500 mg Diphenhydramine HCl (Benadryl) 50 mg PO Q6H PRN PRN PRN Reason: ITCHING Last Admin: 06/28/17 15:44 Dose: 50 mg Enoxaparin Sodium (Lovenox) 40 mg SC DAILY [facility] Last Admin: 06/29/17 06:14 Dose: 40 mg Ergocalciferol (Vitamin D) 50,000 unit PO Q7D [facility] Last Admin: 06/29/17 02:03 Dose: Not Given Hydromorphone HCl (Dilaudid Inj) 1 mg IV Q3H PRN PRN PRN Reason: SEVERE PAIN (6-10/10) Last Admin: 06/29/17 00:56 Dose: 1 mg Ketorolac Tromethamine (Toradol) 15 mg IV Q6 [facility] Stop: 06/29/17 18:01 Last Admin: 06/29/17 06:13 Dose: 15 mg Oxycodone HCl (Oxyir) 10 mg PO Q6H PRN PRN PRN Reason: SEVERE PAIN (6-10/10) Last Admin: 06/29/17 09:11 Dose: 10 mg Sodium Chloride () 5 - 30 ml IV UD PRN PRN Reason: SALINE FLUSH Last Admin: 06/28/17 17:45 Dose: 10 ml Medical Necessity - Tobacco Use Smoking Status: Current every day smoker Tobacco Use: Cigarettes Assessment/Plan 1. Status post left ankle surgery * Stable. Postoperative management as per podiatry. * Ketorolac and oxycodone for pain control. * 2. Nicotine dependency; * The nicotine patch. Patient counseled to quit smoking. * 3. DVT prophylaxis: Lovenox. Disposition: For likely discharge tomorrow. Code Visit OBSV E&M: 68742 Subsequent observation care L2
[2017-06-29] MEDS: 0.9% NaCl Peripheral Flush Adult/Peds IV ×3 (12:12→17:48)
[2017-06-29 16:06] VITALS: BP 133/78; PULSE 87; RESP 16; TEMP 37.3; O2SAT 100
--- NOTE | 2017-06-29 17:24 | PCM.DC ---
- Discharge Diagnoses Reason(s) for Visit for Discharge Instructions: left ankle surgery You will use the following diet at home:: No restrictions Your food should be the consistency of: Regular Your liquids should be the consistency of: Regular/Thin Discharge Activity: Use Crutches Weight Bearing Status: Toe touch weight bearing Call your doctor if your incision/area has: Continuous Slow Oozing, Increased Pain/ Swelling, Foul Smelling Discharge, Swelling at the incision site Call your doctor if you observe: Fever of 101 or Higher Cleanse incision/area with: - - as per podiatry Allergies/Adverse Reactions: Allergies No Known Allergies Allergy (Verified 06/21/17 11:13) Medications to take at Discharge NK [NK] 05/27/17 Primary Care Physician: Ya Cavazos MD [Primary Care Provider] - Please follow up with your Primary Care Physician in: 2 weeks Proposed Discharge Date: 06/29/17
--- NOTE | 2017-06-29 17:30 | PCM.DC.SUM ---
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 Healing fracture of the distal fibular diaphysis. Electronically Signed: Tyron Abbott MD at 13:52 EDT Tel , Service support , podiatry Operations: None, - - left ankle surgery Summary of Care Provided: Patient is a 41 year old M with a history of left ankle fracture who was admitted for nonunion of his left ankle fracture. He had debridement of his left tibial pilon nonunion, grafting and arthrodesis on 06/28/17. . He remained stable, and pain was well controlled. He was discharged home on POD 1. He is to follow up with podiatry and his primary care doctor. He was given scripts for xarelto for DVT prophylaxis, percocet and vitamin D by podiatry upon discharge. Discharge Diet: No Restrictions - please follow up with outpatient physical therapy Discharge Activity: Use Crutches Weight Bearing Status: Toe touch weight bearing Call your doctor if your incision/area has: Continuous Slow Oozing, Increased Pain/ Swelling, Foul Smelling Discharge, Swelling at the incision site Call your doctor if you observe: Fever of 101 or Higher Cleanse incision/area with: - - as per podiatry Home Medications: Medications to take at Discharge NK [NK] 05/27/17 Primary Care Physician: Ya Cavazos MD [Primary Care Provider] - Please follow up with your Primary Care Physician in: 2 weeks Please Follow Up With: Sergio Neil DPM When: one week Disposition: Home Minutes spent on discharge:: 20 Patient Condition:: Good Medical Necessity - Tobacco Use Smoking Status: Current every day smoker Tobacco Use: Cigarettes Meaningful Use Info Meaningful Use Diagnoses (Choose all that apply): None applicable
--- NOTE | 2017-06-29 17:54 | PCM.DC.POD ---
Discharge Diet: No Restrictions - please follow up with outpatient physical therapy Discharge Activity: Use Crutches Weight Bearing Status: No weight bearing - No weightbearing left foot Keep extremity elevated above heart level: Left Leg - Keep left foot elevated with pillows at least 50 minutes of every hour. Keep heel offloaded. Call your doctor if your incision/area has: Continuous Slow Oozing, Sudden Increased Bleeding, Increased Pain/ Swelling, Foul Smelling Discharge, Swelling at the incision site Call your doctor if you observe: Fever of 101 or Higher, Coldness, Increased Pain, Shortness of breath, Chest pain, Increased palpitations (irregular heartbeat), Calf discomfort, Uncontrolled pain Cleanse incision/area with: Do not get Incision Wet, Keep Dressing Clean & Dry, - - as per podiatry Allergies/Adverse Reactions: Allergies No Known Allergies Allergy (Verified 06/21/17 11:13) Medications to take at Discharge Amoxicillin/Potassium Clav [Augmentin 500-125 Tablet] 1 ea PO Q12H #14 tab 06/29/17 Ergocalciferol [Vitamin D] 50,000 unit PO Q7D #8 cap 06/29/17 Oxycodone HCl/Acetaminophen [Percocet 5/325] 1 tab PO Q6H PRN PRN 3 Days #30 tab 06/29/17 Rivaroxaban [Xarelto] 10 mg PO DAILY 30 Days #30 tab 06/29/17 The following prescriptions were given: Oxycodone HCl/Acetaminophen [Percocet 5/325] 1 tab PO Q6H PRN PRN 3 Days #30 tab PRN Reason: Pain Amoxicillin/Potassium Clav [Augmentin 500-125 Tablet] 1 ea PO Q12H #14 tab Ergocalciferol [Vitamin D] 50,000 unit PO Q7D #8 cap Rivaroxaban [Xarelto] 10 mg PO DAILY 30 Days #30 tab Primary Care Physician: Ya Cavazos MD [Primary Care Provider] - Please follow up with your Primary Care Physician in: 2 weeks Please Follow Up With: Sergio Neil DPM When: next week, sooner if needed Proposed Discharge Date: 06/29/17
== END 2017-06-29 18:25 | disposition home or self-care (01) | DRG 493 ==
LOC: MS3 06-29 01:02
PROVIDERS: Admitting Provider Podiatrist; Family Provider Family Medicine; PCP Family Medicine; Visit Provider Student in an Organized Health Care Education/Training Program
DX: S82.872K Displaced pilon fracture of left tibia, subsequent encounter for closed fracture with nonunion (principal); L97.322 Non-pressure chronic ulcer of left ankle with fat layer exposed; X58.XXXD Exposure to other specified factors, subsequent encounter; M25.772 Osteophyte, left ankle; G89.29 Other chronic pain; L30.9 Dermatitis, unspecified; I25.2 Old myocardial infarction; E55.9 Vitamin D deficiency, unspecified; F12.10 Cannabis abuse, uncomplicated; F17.210 Nicotine dependence, cigarettes, uncomplicated; M85.80 Other specified disorders of bone density and structure, unspecified site; Z72.89 Other problems related to lifestyle; Z79.01 Long term (current) use of anticoagulants
CPT/HCPCS: 36415; 73600; 73610; 73650; 76000; 82306; 85014; 85018; 88304; 88305; 88311; C1713; J7120; A4216; J2405

== ENCOUNTER → 2017-07-15 13:55 | Outpatient (CLI) | payer MEDICARE, MEDICAID, SELFPAY ==
--- NOTE | 2017-07-15 13:59 | CT_ITS ---
STUDY: CTA OF THE ABDOMINAL AORTA AND BILATERAL LOWER EXTREMITIES REASON FOR EXAM: Male, 42 years old. Ankle fluid collection RADIATION DOSAGE (If Supplied By Facility): CTDIvol = ( 8.66 ) mGy, DLP = ( 1091.08 ) mGycm TECHNIQUE: Axial CT angiography multi-detector data acquisition was obtained from the to the following intravenous administration of 100 ml of Isovue 370 contrast. Axial images and MIP images were reconstructed from the axial data set. Post-processing of the angiographic images was performed, with multiplanar reformation and 3D reconstruction. Individualized dose optimization techniques were used for this CT. TECHNICAL QUALITY: Good COMPARISON: June 28, 2017, kidney is study, March 19, 2017 CT scan left lower extremity. Descriptors of Narrowing: None (0%) Mild (< 50%) Moderate (50-70%) Severe (70-90%) Subtotal/Total Occlusion (90-100%) Non-Evaluable (technically non-diagnostic FINDINGS: Abdominal aorta: No demonstrated narrowing. Celiac and superior mesenteric arteries: No demonstrated narrowing. Inferior mesenteric artery: No demonstrated narrowing. Right renal artery(arteries): No demonstrated narrowing. Left renal artery(arteries): No demonstrated narrowing. Right common iliac artery: No demonstrated narrowing. Right external iliac artery: No demonstrated narrowing. Right internal iliac artery: No demonstrated narrowing. Left common iliac artery: No demonstrated narrowing. Left external iliac artery: No demonstrated narrowing. Left internal iliac artery: No demonstrated narrowing. RIGHT LOWER EXTREMITY Right common femoral artery: No demonstrated narrowing. Right profundus femoris: No demonstrated narrowing. Right superficial femoral: No demonstrated narrowing. Right popliteal artery: No demonstrated narrowing. Right tibioperoneal trunk: No demonstrated narrowing. Right anterior tibial artery: No demonstrated narrowing. Right posterior tibial artery: No demonstrated narrowing. Right peroneal artery: No demonstrated narrowing. LEFT LOWER EXTREMITY Left common femoral artery: No demonstrated narrowing. Left profundus femoris: No demonstrated narrowing. Left superficial femoral: No demonstrated narrowing. Left popliteal artery: No demonstrated narrowing. Left tibioperoneal trunk: No demonstrated narrowing. Left anterior tibial artery: No demonstrated narrowing. Left posterior tibial artery: No demonstrated narrowing. Left peroneal artery: No demonstrated narrowing. Images of the left foot were included in this study. There is partial visualization of extensive hardware including a cortical screw extending into the left calcaneus. There is a fragmented appearance of the distal tibia and a fluid collection deep to the Achilles which is partially fluid-filled and partially enhancing. On the right side of this fluid collection there is a focus of bright enhancement and are partially thrombosed pseudoaneurysm and/or active hematoma the collectively measures 5.0 x 3.5 cm. It is closely related to the posterior tibial artery. There is also asymmetric early partial enhancement of the popliteal vein. With Within the posterior ankle soft tissues there is a visualized fluid collection The base of the lungs are clear. The visualized liver gallbladder spleen adrenal glands pancreas both kidneys appear normal. There is a moderate amount of stool in the colon the bladder is distended the prostate appears grossly unremarkable. There are reactive appearing lymph nodes in the left groin that measure up to 1.6 x 1.9 cm. The bones are somewhat osteopenic in the left greater than right lower extremities. CT/CTA Abd w/Runoff W/WO Contrast IMPRESSION: Normal abdominal aorta and bilateral lower extremity run-off without a hemodynamically significant stenosis. Abnormal left lower extremity with multiple fragmented appearing bony structures surrounding hardware allowing for any procedure is suspicious for osteomyelitis. There is a focal fluid collection appears very partially enhancing which may represent a pseudoaneurysm or potentially active hematoma and abscess is not entirely excluded. Recommend consideration for follow-up vascular ultrasound with specific focus to the distal posterior tibial vein and ankle. It should be noted that the technique for this study is a vascular study aorta angiogram bilateral lower extremity runoff. Images with this technique, are not particularly specific for bone or soft tissue of the foot or ankle. Constructed images were requested. Axial reconstructed images are provided for interpretation at the time of this study. N.B. : The above information has been verbally conveyed by Kathryn Vann MD to Dr. David Cortez, Covering Physician, on 07/15/2017 18:03:30 (ET). Electronically Signed: Kathryn Vann MD at 17:15 EDT Tel , Service support , N.B. : The above information has been verbally conveyed by Kathryn Vann MD to Dr. David Cortez, Covering Physician, on 07/15/2017 18:03:30 (ET).
== END ==
PROVIDERS: Family Provider Family Medicine; PCP Family Medicine; Visit Provider Podiatrist
DX: Q27.32 Arteriovenous malformation of vessel of lower limb (principal); I77.9 Disorder of arteries and arterioles, unspecified
CPT/HCPCS: 75635; Q9967

== ENCOUNTER 2017-08-21 15:00 | Outpatient (RCR) | payer MEDICARE, MEDICAID, SELFPAY ==
[2017-08-14 15:07] VITALS: BP 121/74; PULSE 86; RESP 16; TEMP 37.3; BMI 20.4
--- NOTE | 2017-08-14 17:37 | PCM.WC.PN ---
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 Over 2 years ago he sustained a left pilon fracture. He underwent open reduction internal fixation and experienced several complications throughout the healing process. He had nonunions with multiple revisional surgeries. 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 Field. Now he has a nonhealing wound and was referred by Dr. Neil. He denies pain. He denies fever, chill, nausea, vomiting, diarrhea, loss of appetite, chest pain, shortness of breath, calf pain. He is kept his dressing clean dry and intact and follows up for [facility]. He wears compression and keeps pressure off the site as well. Progress of Wound: Worsening status per Dr. Neil's chart review - Physical Exam Vital Signs Temp Pulse Resp BP 99.1 F 86 16 121/74 H 08/14/17 15:07 08/14/17 15:07 08/14/17 15:07 08/14/17 15:07 General: Alert, Oriented x3, Cooperative HEENT: Atraumatic Extremities: No cyanosis, Capillary Refill Less than 3 Seconds, No Calf Tenderness - Negative Ferreira sign left lower extremity. There is no passive range of motion left ankle which is consistent with his arthrodesis recent surgery and the ankle is rectus, Diminished Peripheral Pulses, Edema - Mild left lower extremity Skin: Ulcer/ Wound - There is dry adhered silver cell to the wounds. Upon gentle debridement and removal. There is no purulence, erythema, streaking, odor, infection. There is a proximal posterior leg wound that probes to deeper structures and there is some undermining of the wound margin. There is also distal wound to the posterior leg at the heel area with exposed tendon and positive probe to the hardware of the arthrodesis site. His skin is atrophic and hairless. There is no eschar malgorzata necrosis. There is no odor. Wound Measurements and Assessment WC - Nurse 1 - General Ulcer Measurement Start: 08/14/17 15:06 Freq: Status: Active Protocol: Activity Type Activity Date Activity User E-Sign Co-Sign Detail Recorded Client Recorded Date Recorded By Document 08/14/17 15:07 [id number] 08/14/17 15:43 08/14/17 15:07 Wound Center Nurse 1 [Ulcer Assessment] #2 LEFT POSTERIOR ANKLE-SUPERIOR -Combined with other wound No -Current Size (cm) - Length 3 -Current Size (cm) - Width 1.5 -Current Size (cm) - Depth 0.1 -Total Square Cm 4.5 -Date of Last Picture (Recall this 08/14/17 field) -Photo Taken Yes -Epithelialization None Present -Tunneling No -Undermining/Tunneling No -Circular Undermining No -Exudate Amt Medium (34-66%) -Exudate Type Sanguineous -Wound Margin Distinct, Outline Attached -Granulation Amt None Present (0 %) -Granulation Quality N/A -Slough/Fibrin No -Necrosis Amt None Present (0 %) -Necrotic Tissue Type Adherent Slough -Structure Exposed None/Limited to Skin Breakdown -Texture (Carmela-wound Skin Appearance) No Abnormality Assessed -Moisture (Carmela-wound Skin Appearance No Abnormality ) Assessed -Color (Carmela-wound Skin Appearance) No Abnormality Assessed -Temperature (Carmela-wound Skin No Abnormality Appearance) (Pt Warm) -Tenderness on Palpation (Carmela-wound No Skin Appearance) -Ulcer Cleansing Rinsed/ Irrigated with Saline -Foul Odor after Cleansing No -Anesthetic Used 4% Lidocaine Solution #1 LEFT POSTERIOR ANKLE-INFERIOR -Combined with other wound No -Current Size (cm) - Length 2.5 -Current Size (cm) - Width 1.5 -Current Size (cm) - Depth 0.5 -Total Square Cm 3.75 -Date of Last Picture (Recall this 08/14/17 field) -Photo Taken Yes -Epithelialization None Present -Tunneling No -Undermining/Tunneling No -Circular Undermining No -Exudate Amt Large (67-100%) -Wound Margin Distinct, Outline Attached -Granulation Amt None Present (0 %) -Necrosis Amt None Present (0 %) -Structure Exposed None/Limited to Skin Breakdown -Texture (Carmela-wound Skin Appearance) No Abnormality Assessed -Moisture (Carmela-wound Skin Appearance No Abnormality ) Assessed -Color (Carmela-wound Skin Appearance) No Abnormality Assessed -Temperature (Carmela-wound Skin No Abnormality Appearance) (Pt Warm) -Tenderness on Palpation (Carmela-wound No Skin Appearance) -Ulcer Cleansing Rinsed/ Irrigated with Saline -Foul Odor after Cleansing No -Anesthetic Used 4% Lidocaine Solution [Edema Assessment] -Left Calf (cm) 29 -Left Ankle (cm) 22 WC - Nurse 2 - General Ulcer CM Notes Start: 08/14/17 15:06 Freq: Status: Active Protocol: Activity Type Activity Date Activity User E-Sign Co-Sign Detail Recorded Client Recorded Date Recorded By Document 08/14/17 16:07 [id number] 08/14/17 16:16 08/14/17 16:07 Wound Center Nurse 2 [Procedure/Treatment] #2 LEFT POSTERIOR ANKLE-SUPERIOR -Correct Patient No -Correct Side, Site, Position No -Correct Procedure No -Procedure Performed No #1 LEFT POSTERIOR ANKLE-INFERIOR -Time 16:10 -Correct Patient Yes -Correct Side, Site, Position Yes -Correct Procedure Yes -Procedure Performed Yes -Type of Procedure Debridement -Clinical Debridement Subcutaneous -Post Debridement Size (cm) - Length 2.6 -Post Debridement Size (cm) - Width 1.6 -Post Debridement Size (cm) - Depth 0.8 -Total Square Cm 4.16 -Wound/Ulcer Outcome Not Healed -Ulcer Cleansing Rinsed/ Irrigated with Saline -Foul Odor after Cleansing No -Bioengineered Tissue No -Bleeding Controlled with Pressure -Treatment Response Procedure Tolerated Well [See Physician Procedure note for Specifics] Pain Scale: 0-10 Numeric [Pain] -Is Patient Pain Free? Yes Musculoskeletal: No Tenderness to Palpation of Joints or Extremities, Muscle Wasting Neurological: - - Lack of epicritic sensation light touch and sharp debridement left lower extremity Psych/Mental Status: Normal Affect, Appropriate Debridement Note Post-Debridement Measurements/Treatment WC - Nurse 2 - General Ulcer CM Notes Start: 08/14/17 15:06 Freq: Status: Active Protocol: Activity Type Activity Date Activity User E-Sign Co-Sign Detail Recorded Client Recorded Date Recorded By Document 08/14/17 16:07 STUART [id number] 08/14/17 16:16 STUART 08/14/17 16:07 Wound Center Nurse 2 #2 LEFT POSTERIOR ANKLE-SUPERIOR -Correct Patient No -Correct Side, Site, Position No -Correct Procedure No -Procedure Performed No #1 LEFT POSTERIOR ANKLE-INFERIOR -Time 16:10 -Correct Patient Yes -Correct Side, Site, Position Yes -Correct Procedure Yes -Procedure Performed Yes -Type of Procedure Debridement -Clinical Debridement Subcutaneous -Post Debridement Size (cm) - Length 2.6 -Post Debridement Size (cm) - Width 1.6 -Post Debridement Size (cm) - Depth 0.8 -Total Square Cm 4.16 -Wound/Ulcer Outcome Not Healed -Ulcer Cleansing Rinsed/ Irrigated with Saline -Foul Odor after Cleansing No -Bioengineered Tissue No -Bleeding Controlled with Pressure -Treatment Response Procedure Tolerated Well Pain Scale: 0-10 Numeric Is Patient Pain Free? Yes Wound debrided: posterior leg (proximal) Tissue Removed: No debridement was completed today - Due to concern of underlying recently repaired pseudoaneurysm - Additional Wound Wound debrided: posterior leg (distal wound site) Laterality: Left Type of Debridement: Excisional debridement Anesthesia Used: 5% Lidocaine Gel Depth: in the subcutaneous layer Percentage of wound debrided: 100 Instrument Used: #15 blade Tissue Removed: fibrous, devitalized subcutaneous, biofilm, slough Severity: Necrosis of Muscle Amount of bleeding with debridement: Mild Bleeding Controlled with: Pressure Patient tolerated procedure: Patient tolerated procedure well Assessment/Plan Active Problems 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 Nonunion left peel on with wound and bone healing complications. Mild edema left lower extremity. Deconditioning and muscle atrophy. Marijuana and drug use. Non-and delayed healing Plan: I reviewed and discussed his case today. Subcutaneous excisional debridement is performed as noted in clinical panel. It is noted there is exposed tendon however his recent posterior approach to his ankle arthrodesis site is noted in any viable tendon was kept intact. And concerned about the depth of these wounds today. I reviewed his referring physicians notes. I will also request Dr. Field's vascular surgery notes. I recommend he apply Adaptic and overlying Aquacel Ag to the proximal wound. I recommend he packs the distal wound with sterile gauze packing and has this change with home health every 1-2 days. He is homebound and unable to drive. He is unable to change his dressing on his own. I ordered home health to assist him with this. Tubigrip was applied for compression management and he was advised on how to use it properly. To keep pressure off these wounds sites by hanging his leg over pillows while in bed to keep the wounds floating in the air with his wound dressing covering wounds. To optimize wound healing by decreasing smoking activity. A prescription for nutritional supplementation, Richardson, was provided today. He was advised on proper use. There are no local signs of infection noted however this will be monitored. His recent ankle arthrodesis proximity is noted and this is a concern for future compromise. Spencer understands he is at high risk for limb loss and has multiple healing complications. Pending his response additional advanced wound care product application will be considered. Preauthorization for epi fix will be initiated. He also understands to deep exposure operating room debridement application of wound VAC and advanced wound care products will also be considered. His last labs in March were reviewed and he understands he may need to be updated. Due to delayed healing I will also recommend future noninvasive vascular study. The appropriateness of this order will be assessed after review Dr. Field's vascular surgery notes. To follow-up at the wound care center in 1 week or call if he has any questions or concerns.
[2017-08-21 15:01] VITALS: BP 116/83; PULSE 93; RESP 20; TEMP 37.3; BMI 20.4
--- NOTE | 2017-08-21 16:11 | PN.PCM_ITS ---
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 Over 2 years ago he sustained a left pilon fracture. He underwent open reduction internal fixation and experienced several complications throughout the healing process. He had nonunions with multiple revisional surgeries. 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 Field. Now he has a nonhealing wound and was referred by Dr. Neil. He denies pain. He denies fever, chill, nausea, vomiting, diarrhea, loss of appetite, chest pain, shortness of breath, calf pain. He is kept his dressing clean dry and intact and follows up for wound care at the [facility] center. He wears compression and keeps pressure off the site as well. He has reduced his smoking activity to 3 cigarettes per day. Progress of Wound: Stable - Physical Exam Vital Signs Temp Pulse Resp BP 99.1 F 93 20 H 116/83 H 08/21/17 15:01 08/21/17 15:01 08/21/17 15:01 08/21/17 15:01 General: Alert, Oriented x3, Cooperative Extremities: No cyanosis, Capillary Refill Less than 3 Seconds, No Calf Tenderness - Negative Tamiko and Ferreira bilateral, Diminished Peripheral Pulses, Edema Skin: Ulcer/ Wound - No purulence, no erythema, streaking, no odor, no infection. There is less devitalized tissue noted in the peripheral skin is atrophic and hairless. His distalmost sutures were removed today without gapping. There is exposed and devitalized tendon in the distal wound. Periwound inflammation has decreased. Wound Measurements and Assessment WC - Nurse 1 - General Ulcer Measurement Start: 08/14/17 15:06 Freq: Status: Active Protocol: Activity Type Activity Date Activity User E-Sign Co-Sign Detail Recorded Client Recorded Date Recorded By Document 08/21/17 15:01 DL [id number] 08/21/17 15:14 DL 08/21/17 15:01 Wound Center Nurse 1 [Ulcer Assessment] #2 LEFT POSTERIOR ANKLE-SUPERIOR -Current Size (cm) - Length 1.1 -Current Size (cm) - Width 0.7 -Current Size (cm) - Depth 2.2 -Total Square Cm 0.77 -Photo Taken No -Tunneling Position (O'clock) 12 -Tunneling Distance (cm) 2.2 -Exudate Amt Small (1-33%) -Exudate Type Sanguineous -Wound Margin Distinct, Outline Attached -Granulation Amt Large (67-100%) -Granulation Quality Red -Necrosis Amt Small (1-33%) -Necrotic Tissue Type Adherent Slough -Structure Exposed N/A -Texture (Carmela-wound Skin Appearance) Scarring -Moisture (Carmela-wound Skin Appearance Dry/Scaly ) -Color (Carmela-wound Skin Appearance) No Abnormality -Temperature (Carmela-wound Skin No Abnormality Appearance) (Pt Warm) -Ulcer Cleansing Wound Cleanser -Foul Odor after Cleansing No -Anesthetic Used 4% Lidocaine Solution #1 LEFT POSTERIOR ANKLE-INFERIOR -Current Size (cm) - Length 0.8 -Current Size (cm) - Width 0.6 -Current Size (cm) - Depth 0.8 -Total Square Cm 0.48 -Photo Taken No -Exudate Amt Small (1-33%) -Exudate Type Serosanguineous -Wound Margin Distinct, Outline Attached -Granulation Amt Small (1-33%) -Granulation Quality [place] -Necrosis Amt Small (1-33%) -Necrotic Tissue Type Adherent Slough -Structure Exposed N/A -Texture (Carmela-wound Skin Appearance) Scarring -Moisture (Carmela-wound Skin Appearance Dry/Scaly ) -Color (Carmela-wound Skin Appearance) No Abnormality -Ulcer Cleansing Wound Cleanser -Foul Odor after Cleansing No -Anesthetic Used 4% Lidocaine Solution [Edema Assessment] -Left Calf (cm) 26 -Left Ankle (cm) 21 Musculoskeletal: No Tenderness to Palpation of Joints or Extremities, Muscle Wasting, - - Rectus left ankle at arthrodesis site Neurological: Sensory exam intact to light touch and pain Psych/Mental Status: Normal Affect, Appropriate Debridement Note Post-Debridement Measurements/Treatment WC - Nurse 2 - General Ulcer CM Notes Start: 08/14/17 15:06 Freq: Status: Active Protocol: Activity Type Activity Date Activity User E-Sign Co-Sign Detail Recorded Client Recorded Date Recorded By Document 08/14/17 16:07 STUART [id number] 08/14/17 16:16 STUART 08/14/17 16:07 Wound Center Nurse 2 #2 LEFT POSTERIOR ANKLE-SUPERIOR -Correct Patient No -Correct Side, Site, Position No -Correct Procedure No -Procedure Performed No #1 LEFT POSTERIOR ANKLE-INFERIOR -Time 16:10 -Correct Patient Yes -Correct Side, Site, Position Yes -Correct Procedure Yes -Procedure Performed Yes -Type of Procedure Debridement -Clinical Debridement Subcutaneous -Post Debridement Size (cm) - Length 2.6 -Post Debridement Size (cm) - Width 1.6 -Post Debridement Size (cm) - Depth 0.8 -Total Square Cm 4.16 -Wound/Ulcer Outcome Not Healed -Ulcer Cleansing Rinsed/ Irrigated with Saline -Foul Odor after Cleansing No -Bioengineered Tissue No -Bleeding Controlled with Pressure -Treatment Response Procedure Tolerated Well Pain Scale: 0-10 Numeric Is Patient Pain Free? Yes Wound debrided: posterior leg (superior) Laterality: Left Type of Debridement: Excisional debridement Anesthesia Used: 5% Lidocaine Gel Depth: in the subcutaneous layer Percentage of wound debrided: 100 Instrument Used: #15 blade Tissue Removed: fibrous, devitalized subcutaneous, biofilm, slough Severity: Fat Layer Exposed Amount of bleeding with debridement: Mild Bleeding Controlled with: Pressure Patient tolerated procedure well - Additional Wound Wound debrided: posterior leg (inferior) Laterality: Left Type of Debridement: Excisional debridement Anesthesia Used: 5% Lidocaine Gel Depth: to muscle Percentage of wound debrided: 100 Instrument Used: #15 blade, Forceps Tissue Removed: fibrous, devitalized subcutaneous, biofilm, slough Severity: Fat Layer Exposed Amount of bleeding with debridement: Mild Bleeding Controlled with: Pressure Patient tolerated procedure: Patient tolerated procedure well Assessment/Plan Assessment: Posterior left leg wounds -proximal and distal. Nonunion left peel on with wound and bone healing complications. Mild edema left lower extremity. Deconditioning and muscle atrophy. Marijuana and drug use. Non-and delayed healing Plan: I reviewed and discussed his case today. Subcutaneous excisional debridement is performed as noted in clinical panel to the proximal wound site and tendon (devitalized) to the distal wound site. I will also request Dr. Field's vascular surgery notes. I recommend changing iodoform daily packing every 24-48 hours with home health. He is homebound and unable to drive. He is unable to change his dressing on his own. Tubigrip was applied for compression management and he was advised on how to use it properly. To keep pressure off these wounds sites by hanging his leg over pillows while in bed to keep the wounds floating in the air with his wound dressing covering wounds. To optimize wound healing by decreasing smoking activity; this was discussed again today. A prescription for nutritional supplementation, Richardson, was provided. He was advised on proper use. There are no local signs of infection noted however this will be monitored. His recent ankle arthrodesis proximity is noted and this is a concern for future compromise. Spencer understands he is at high risk for limb loss and has multiple healing complications. Pending his response additional advanced wound care product application will be considered. He was preapproved for 80% coverage and the anticipated cost was discussed today. He will think about his options with this. He also understands to deep exposure operating room debridement application of wound VAC and advanced wound care products will also be considered. Due to delayed healing I will also consider future noninvasive vascular study. The appropriateness of this order will be assessed after review Dr. Field's vascular surgery notes. Updated ankle x-rays and labs were also ordered he will obtain his prior to his follow- up. To follow-up at the foot and ankle center next week due to the national holiday and center closure on Saturday. He will then continue to follow-up at the wound center after that. I answered all his questions.
== END 2017-08-24 23:59 ==
LOC: WC 15:00
PROVIDERS: Family Provider Family Medicine; PCP Family Medicine; Visit Provider Podiatrist
DX: L97.823 Non-pressure chronic ulcer of other part of left lower leg with necrosis of muscle (principal)
CPT/HCPCS: 11042; 11043; 99213; G0463

== ENCOUNTER 2017-08-24 09:25 | Emergency (ER) | payer MEDICARE, MEDICAID, SELFPAY ==
[2017-08-24 09:26] VITALS: BP 109/76; PULSE 98; RESP 16; TEMP 35.9; O2SAT 98; BMI 18.8
[2017-08-24] MEDS: Oxymetazoline 0.05% 1 SPRAY SPRAY.BTL 2 SPRAY NASAL (09:51)
--- NOTE | 2017-08-24 10:17 | ED.DCSUM_ITS ---
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 Patient states he woke this morning with a nosebleed that is now resolved. He was told to come to the ER if he was coughing up blood or if he got nosebleeds. He denies any recent facial trauma. He has had no recent URI symptoms. Patient is currently on Plavix. Physical Examination: Vital signs are unremarkable. Patient sitting upright in bed no acute distress. Head neck examination was scant blood diffusely throughout both nostrils. There is no focal clot. No active bleeding. Posterior pharynx examination reveals mild bloody mucus in the pharynx. Heart is regular rate and rhythm. No lung sounds are clear. Abdomen is soft nontender. Lower external examination of his left leg to be wrapped in an Seth wrap. He has no bleeding at the site. Test Results: [] Emergency Department Course and Treatment: Patient's nose was cleansed. He was given Afrin nasal spray. He has had no further bleeding. We discussed possibility of packing his nose he would prefer to avoid this. He is given a nasal clip. If he gets recurrent bleeding he is to try this and if not improved in 10 minutes he is to return. He voices understanding and agreement. Treatment Plan: [] Disposition: Discharge Impression: Nosebleed, resolved This note was generated with [employer] dictation software. It may contain incorrect words, spelling, and punctuation that were not noted in review of the chart prior to signing ED Disposition - Plan for ED Patient: Chief Complaint: Nosebleed Referrals: Ya Cavazos MD [Primary Care Provider] -
--- NOTE | 2017-08-24 10:17 | ED.DEP ---
ED Disposition - Plan for ED Patient: Disposition: Home or Assisted Living Chief Complaint: Nosebleed Instructions: Nosebleed Referrals: Ya Cavazos MD [Primary Care Provider] - As Needed
== END 2017-08-24 10:37 | disposition home or self-care (01) ==
PROVIDERS: Emergency Provider Emergency Medicine; Family Provider Family Medicine; PCP Family Medicine
DX: R04.0 Epistaxis (principal); F12.90 Cannabis use, unspecified, uncomplicated; Z79.01 Long term (current) use of anticoagulants; Z72.0 Tobacco use
CPT/HCPCS: 99282

== ENCOUNTER 2017-09-11 12:30 | Outpatient (RCR) | payer MEDICARE, MEDICAID, SELFPAY ==
[2017-08-25 01:08] VITALS: BP 116/83; PULSE 93; RESP 20; TEMP 37.3
== END 2017-09-24 23:59 ==
LOC: WC 12:30
PROVIDERS: Family Provider Family Medicine; PCP Family Medicine; Visit Provider Podiatrist
DX: Z09 Encounter for follow-up examination after completed treatment for conditions other than malignant neoplasm (principal)

== ENCOUNTER 2017-09-25 14:59 | Outpatient (RCR) | payer MEDICARE, MEDICAID, SELFPAY ==
[2017-09-25 01:04] VITALS: BP 116/83; PULSE 93; RESP 20; TEMP 37.3
[2017-09-25 15:06] VITALS: BP 108/68; PULSE 87; RESP 14; TEMP 37
--- NOTE | 2017-09-26 21:15 | PCM.WC.PN ---
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 Current Visit: Yes Code(s): S82.202K - Unspecified fracture of shaft of left tibia, subsequent encounter for closed fracture with nonunion (4) Left leg pain Status: Chronic Current Visit: No Code(s): M79.605 - Pain in left leg (5) Osteopenia Status: Chronic Current Visit: Yes Code(s): M85.80 - Other specified disorders of bone density and structure, unspecified site (6) 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 Over 2 years ago he sustained a left pilon fracture. He underwent open reduction internal fixation and experienced several complications throughout the healing process. He had nonunions with multiple revisional surgeries. 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 Field. Now he has a nonhealing wound and was referred by Dr. Neil. He denies pain. He denies fever, chill, nausea, vomiting, diarrhea, loss of appetite, chest pain, shortness of breath, calf pain. He is kept his dressing clean dry and intact and follows up for wound care. He wears compression and keeps pressure off the site as well. Home health has been helping him with dressing changes and he is home bound.He has missed several follow up visits. He did not get the recommended xrays or labs. Progress of Wound: improving - Physical Exam Vital Signs Temp Pulse Resp BP 98.6 F 87 14 108/68 09/25/17 15:06 09/25/17 15:06 09/25/17 15:06 09/25/17 15:06 General: Alert, Oriented x3, Cooperative Extremities: No cyanosis, Capillary Refill Less than 3 Seconds, No Calf Tenderness - Negative Tamiko right and negative Ferreira sign Bilateral, Diminished Peripheral Pulses, Edema - Decreased left lower extremity Skin: Ulcer/ Wound - No purulence, no erythema, streaking, odor, no infection. There is decreased depth to both wound sites. Periwound inflammation is decreased. There is no purulence, erythema, streaking, odor, or necrosis or exposed tendon left. There is no longer positive probe to hardware at the distal site., - - The peripheral skin is hairless and atrophic left lower extremity Wound Measurements and Assessment WC - Nurse 1 - General Ulcer Measurement Start: 09/25/17 15:06 Freq: Status: Active Protocol: Activity Type Activity Date Activity User E-Sign Co-Sign Detail Recorded Client Recorded Date Recorded By Document 09/25/17 15:06 [id number] 09/25/17 15:15 09/25/17 15:06 Wound Center Nurse 1 [Ulcer Assessment] #2 LEFT POSTERIOR ANKLE-SUPERIOR -Combined with other wound No -Current Size (cm) - Length 1 -Current Size (cm) - Width 0.2 -Current Size (cm) - Depth 0.1 -Total Square Cm 0.2 -Date of Last Picture (Recall this 09/25/17 field) -Photo Taken Yes -Epithelialization None Present -Tunneling No -Undermining/Tunneling No -Circular Undermining No -Exudate Amt None Present (0 %) -Wound Margin Thickened -Granulation Amt None Present (0 %) -Slough/Fibrin Yes -Necrosis Amt None Present (0 %) -Necrotic Tissue Type Adherent Slough -Structure Exposed None/Limited to Skin Breakdown -Texture (Carmela-wound Skin Appearance) No Abnormality Assessed -Moisture (Carmela-wound Skin Appearance No Abnormality ) Assessed -Color (Carmela-wound Skin Appearance) No Abnormality Assessed -Temperature (Carmela-wound Skin No Abnormality Appearance) (Pt Warm) -Tenderness on Palpation (Carmela-wound No Skin Appearance) -Ulcer Cleansing Rinsed/ Irrigated with Saline -Foul Odor after Cleansing No -Anesthetic Used 4% Lidocaine Solution #1 LEFT POSTERIOR ANKLE-INFERIOR -Combined with other wound No -Current Size (cm) - Length 4.4 -Current Size (cm) - Width 0.8 -Current Size (cm) - Depth 0.1 -Total Square Cm 3.52 -Date of Last Picture (Recall this 09/25/17 field) -Photo Taken Yes -Epithelialization None Present -Tunneling No -Undermining/Tunneling No -Circular Undermining No -Exudate Amt None Present (0 %) -Wound Margin Thickened -Slough/Fibrin Yes -Necrosis Amt Large (67-100%) -Necrotic Tissue Type Adherent Slough -Structure Exposed None/Limited to Skin Breakdown -Texture (Carmela-wound Skin Appearance) No Abnormality Assessed -Moisture (Carmela-wound Skin Appearance Assessed ) Dry/Scaly -Color (Carmela-wound Skin Appearance) No Abnormality Assessed -Temperature (Carmela-wound Skin No Abnormality Appearance) (Pt Warm) -Tenderness on Palpation (Carmela-wound No Skin Appearance) -Ulcer Cleansing Rinsed/ Irrigated with Saline -Foul Odor after Cleansing No -Anesthetic Used 4% Lidocaine Solution [Edema Assessment] -Lower Limb Edema Present NA WC - Nurse 2 - General Ulcer CM Notes Start: 09/25/17 15:06 Freq: Status: Active Protocol: Activity Type Activity Date Activity User E-Sign Co-Sign Detail Recorded Client Recorded Date Recorded By Document 09/25/17 16:09 STUART [id number] 09/25/17 16:10 STUART 09/25/17 16:09 Wound Center Nurse 2 [Procedure/Treatment] #2 LEFT POSTERIOR ANKLE-SUPERIOR -Time 16:09 -Correct Patient Yes -Correct Side, Site, Position Yes -Correct Procedure Yes -Procedure Performed Yes -Type of Procedure Debridement -Clinical Debridement Subcutaneous -Post Debridement Size (cm) - Length 1 -Post Debridement Size (cm) - Width 0.3 -Post Debridement Size (cm) - Depth 0.1 -Total Square Cm 0.3 -Wound/Ulcer Outcome Not Healed -Ulcer Cleansing Rinsed/ Irrigated with Saline -Foul Odor after Cleansing No -Bioengineered Tissue No -Bleeding Controlled with Pressure -Treatment Response Procedure Tolerated Well #1 LEFT POSTERIOR ANKLE-INFERIOR -Time 16:09 -Correct Patient Yes -Correct Side, Site, Position Yes -Correct Procedure Yes -Procedure Performed Yes -Type of Procedure Debridement -Clinical Debridement Subcutaneous -Post Debridement Size (cm) - Length 4.5 -Post Debridement Size (cm) - Width 0.8 -Post Debridement Size (cm) - Depth 0.3 -Total Square Cm 3.60 -Wound/Ulcer Outcome Not Healed -Ulcer Cleansing Rinsed/ Irrigated with Saline -Foul Odor after Cleansing No -Bioengineered Tissue No -Bleeding Controlled with Pressure -Treatment Response Procedure Tolerated Well [See Physician Procedure note for Specifics] Pain Scale: 0-10 Numeric [Pain] -Is Patient Pain Free? Yes Musculoskeletal: No Tenderness to Palpation of Joints or Extremities, Muscle Wasting, - - Rectus left ankle Neurological: - - Lack of epicritic sensation light touch Psych/Mental Status: Normal Affect, Appropriate Debridement Note Post-Debridement Measurements/Treatment WC - Nurse 2 - General Ulcer CM Notes Start: 09/25/17 15:06 Freq: Status: Active Protocol: Activity Type Activity Date Activity User E-Sign Co-Sign Detail Recorded Client Recorded Date Recorded By Document 09/25/17 16:09 STUART [id number] 09/25/17 16:10 STUART 09/25/17 16:09 Wound Center Nurse 2 #2 LEFT POSTERIOR ANKLE-SUPERIOR -Time 16:09 -Correct Patient Yes -Correct Side, Site, Position Yes -Correct Procedure Yes -Procedure Performed Yes -Type of Procedure Debridement -Clinical Debridement Subcutaneous -Post Debridement Size (cm) - Length 1 -Post Debridement Size (cm) - Width 0.3 -Post Debridement Size (cm) - Depth 0.1 -Total Square Cm 0.3 -Wound/Ulcer Outcome Not Healed -Ulcer Cleansing Rinsed/ Irrigated with Saline -Foul Odor after Cleansing No -Bioengineered Tissue No -Bleeding Controlled with Pressure -Treatment Response Procedure Tolerated Well #1 LEFT POSTERIOR ANKLE-INFERIOR -Time 16:09 -Correct Patient Yes -Correct Side, Site, Position Yes -Correct Procedure Yes -Procedure Performed Yes -Type of Procedure Debridement -Clinical Debridement Subcutaneous -Post Debridement Size (cm) - Length 4.5 -Post Debridement Size (cm) - Width 0.8 -Post Debridement Size (cm) - Depth 0.3 -Total Square Cm 3.60 -Wound/Ulcer Outcome Not Healed -Ulcer Cleansing Rinsed/ Irrigated with Saline -Foul Odor after Cleansing No -Bioengineered Tissue No -Bleeding Controlled with Pressure -Treatment Response Procedure Tolerated Well Pain Scale: 0-10 Numeric Is Patient Pain Free? Yes Wound debrided: posterior distal ankle Laterality: Left Type of Debridement: Excisional debridement Anesthesia Used: 4% Lidocaine Solution Depth: in the subcutaneous layer Percentage of wound debrided: 100 Instrument Used: #15 blade Tissue Removed: fibrous, devitalized subcutaneous, biofilm, slough Severity: Fat Layer Exposed Amount of bleeding with debridement: Mild Bleeding Controlled with: Pressure Patient tolerated procedure well - Additional Wound Wound debrided: proximal posterior leg Laterality: Left Type of Debridement: Excisional debridement Anesthesia Used: 4% Lidocaine Solution Depth: in the subcutaneous layer Percentage of wound debrided: 100 Instrument Used: #15 blade Tissue Removed: fibrous, devitalized subcutaneous, biofilm, slough Severity: Fat Layer Exposed Amount of bleeding with debridement: Mild Bleeding Controlled with: Pressure Patient tolerated procedure: Patient tolerated procedure well Assessment/Plan Active Problems 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 Nonunion left ankle arthrodesis with wound and bone healing complications. Mild edema left lower extremity. Deconditioning and muscle atrophy. Marijuana and drug use. Non-and delayed healing Plan: I reviewed and discussed his case today. Subcutaneous excisional debridement is performed as noted in clinical panel. It is noted there is exposed tendon however his recent posterior approach to his ankle arthrodesis site is noted in any viable tendon was kept intact. The proximal suture was removed and this wound size has decreased. Decreased wound depth is noted. I reviewed his referring physicians notes. Dr. Field's vascular surgery notes were reviewed in detail. I recommend he apply Aquacel Ag to the proximal and distal wound. Deep wound packing is no longer needed or appropriate. He is homebound and unable to drive. He is unable to change his dressing on his own. I ordered home health to assist him with this. Tubigrip was applied for compression management and he was advised on how to use it properly. To keep pressure off these wounds sites by hanging his leg over pillows while in bed to keep the wounds floating in the air with his wound dressing covering wounds. To optimize wound healing by decreasing smoking activity. A prescription for nutritional supplementation, Richardson, was provided previously. He was advised on proper use. There are no local signs of infection noted however this will be monitored. His recent ankle arthrodesis proximity is noted and this is a concern for future compromise. Spencer understands he is at high risk for limb loss and has multiple healing complications. Pending his response additional advanced wound care product application will be considered. Preauthorization for epi fix was completed and will cover 80% of the cost; he deferred application today. He also understands to deep exposure operating room debridement application of wound VAC and advanced wound care products will also be considered. His last labs in March were reviewed and he understands he may need to be updated. Due to delayed healing I will also recommend future noninvasive vascular study. Spencer is amenable to obtain his x-rays and labs after clinic today. A copy of the order form was provided and is noted this has been ordered for over a month now he does not obtain this. To follow-up at the wound care center in 1 week or call if he has any questions or concerns.
== END 2017-10-25 23:59 ==
LOC: WC 14:59
PROVIDERS: Family Provider Family Medicine; PCP Family Medicine; Visit Provider Podiatrist
DX: L97.322 Non-pressure chronic ulcer of left ankle with fat layer exposed (principal); M85.80 Other specified disorders of bone density and structure, unspecified site; Z72.0 Tobacco use; L97.822 Non-pressure chronic ulcer of other part of left lower leg with fat layer exposed
CPT/HCPCS: 11042

== ENCOUNTER → 2017-09-28 09:57 | Outpatient (CLI) | payer MEDICARE, MEDICAID, SELFPAY ==
--- NOTE | 2017-09-28 10:29 | RAD_ITS ---
STUDY: X-RAY - LEFT ANKLE REASON FOR EXAM: Male, 42 years old. Follow-up after surgical arthrodesis. TECHNIQUE: 3 view(s) of the ankle. COMPARISON: Radiographs of the left ankle dated June 28, 2017. FINDINGS: Patient has had open reduction internal fixation of the distal tibial fracture with plate and screws. Intramedullary nail traverses a fracture of the distal fibula. There has been surgical arthrodesis of the tibia to the calcaneus. The bones appear osteopenic. Normal medial and lateral malleoli. There are calcaneal spurs. The visualized metatarsals are within normal limits. There is soft tissue swelling. Endovascular stent is visible within the soft tissues of the posterior leg. RAD/Ankle min 3 Views IMPRESSION: 1. Residual fracture is visible within the distal tibia suggesting possible nonunion or incomplete union. 2. Status post open reduction internal fixation of distal fibular fracture. 3. Surgical arthrodesis of subtalar and tibiotalar articulations. Electronically Signed: Althea Sierra MD at 10:06 EDT , Service support ,
== END ==
LOC: LAB 09:59 → RAD 10:28
PROVIDERS: Family Provider Podiatrist; PCP Family Medicine; Visit Provider Podiatrist
DX: L97.929 Non-pressure chronic ulcer of unspecified part of left lower leg with unspecified severity (principal); S82.872A Displaced pilon fracture of left tibia, initial encounter for closed fracture; X58.XXXA Exposure to other specified factors, initial encounter
CPT/HCPCS: 73610

== ENCOUNTER → 2018-01-24 13:30 | Outpatient (CLI) | payer MEDICARE, MEDICAID, SELFPAY ==
--- NOTE | 2018-01-24 13:35 | CT_ITS ---
STUDY: LOWER EXTREMITY WITHOUT CONTRAST LEFT REASON FOR EXAM: Male, 42 years old. Tibial fracture. RADIATION DOSAGE (If Supplied By Facility): CTDIvol = ( 15.35 ) mGy, DLP = ( 562.22 ) mGycm. Individualized dose optimization techniques were used for this CT.? TECHNIQUE: Axial images through the distal tibia, ankle , hind and midfoot without administration of intravenous contrast with sagittal and coronal reconstructions. 3-D color renditions. COMPARISON: Ankle series September 28, 2017. FINDINGS: The patient is status post ORIF complex ankle fracture. Subtalar arthrodesis. Posterior multilevel plate and screws stabilizing the distal tibia. An obliquely oriented screw extends from the calcaneus, extending through the talus and terminating in the distal tibia. Intramedullary susan extends from the tip of the fibula to the distal fibular diaphysis. There is a transverse irregular low attenuation line suggestive of a fracture involving the distal tibial metaphysis sagittal image 18 series 601, axial image 78 series 3 and coronal image 50 series 602. This suggests an incomplete union or nonunion. Bones are osteopenic. Vascular stent medial aspect of the distal lower leg. No focal fluid collections. No significant soft tissue swelling. CT/Extremity Lower without Contra IMPRESSION: ORIF complex ankle fracture. Surgical hardware appears intact. Tibiotalar and talocalcaneal arthrodesis. 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 Osteopenia. Electronically Signed: Amado Bermudez MD at 5:47 EST , Service support ,
--- NOTE | 2018-01-24 13:52 | CT_ITS ---
STUDY: LOWER EXTREMITY WITHOUT CONTRAST LEFT REASON FOR EXAM: Male, 42 years old. Tibial fracture. RADIATION DOSAGE (If Supplied By Facility): CTDIvol = ( 15.35 ) mGy, DLP = ( 562.22 ) mGycm. Individualized dose optimization techniques were used for this CT.? TECHNIQUE: Axial images through the distal tibia, ankle , hind and midfoot without administration of intravenous contrast with sagittal and coronal reconstructions. 3-D color renditions. COMPARISON: Ankle series September 28, 2017. FINDINGS: The patient is status post ORIF complex ankle fracture. Subtalar arthrodesis. Posterior multilevel plate and screws stabilizing the distal tibia. An obliquely oriented screw extends from the calcaneus, extending through the talus and terminating in the distal tibia. Intramedullary susan extends from the tip of the fibula to the distal fibular diaphysis. There is a transverse irregular low attenuation line suggestive of a fracture involving the distal tibial metaphysis sagittal image 18 series 601, axial image 78 series 3 and coronal image 50 series 602. This suggests an incomplete union or nonunion. Bones are osteopenic. Vascular stent medial aspect of the distal lower leg. No focal fluid collections. No significant soft tissue swelling. CT/Coronals Sag Multi Obl 3-D Rec IMPRESSION: ORIF complex ankle fracture. Surgical hardware appears intact. Tibiotalar and talocalcaneal arthrodesis. 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 Osteopenia. Electronically Signed: Amado Bermudez MD at 5:47 EST , Service support ,
--- OUTSIDE RECORDS SUMMARY | 2018-03-21 12:53 | XMS RPT_ITS ---
:1975 Author Organization OHIP Support Name Relationship Address Phone D Unavailable Unavailable Unavailable CHELSEADOLORES FITZPATRICKLEY Unavailable [address] + [place] [address] D Unavailable Unavailable Unavailable CHELSEADOLORES FITZPATRICKLEY Unavailable [address] + [place] [address] D Unavailable Unavailable Unavailable CHELSEADOLORESSHANNON Unavailable [address] + [place] [address] D Unavailable Unavailable Unavailable CHELSEADOLORES FITZPATRICKLEY Unavailable [address] + [place] [address] D Unavailable Unavailable Unavailable CHELSEA, SHANNON Unavailable [address] + [place] [address] CHELSEA SHANNON Unavailable [address] + [place] [address] UE Unavailable Unavailable Unavailable CHELSEA, SHANNON Unavailable [address] + [place] [address] UE Unavailable Unavailable Unavailable CHELSEADOLORESSHANNON Unavailable [address] + [place] [address] UE Unavailable Unavailable Unavailable CHELSEA, SHANNON Unavailable [address] + [place] [address] UE Unavailable Unavailable Unavailable CHELSEA, SHANNON Unavailable [address] + [place] [address] UE Unavailable Unavailable Unavailable CHELSEA, SHANNON Unavailable [address] + [place] [address] UE Unavailable Unavailable Unavailable CHELSEA, SHANNON Unavailable [address] + [place] [address] UE Unavailable Unavailable Unavailable CHELSEADOLORESSHANNON Unavailable [address] + [place] [address] UE Unavailable Unavailable Unavailable CHELSEADOLORES FITZPATRICKLEY Unavailable [address] + [place] [address] UE Unavailable Unavailable Unavailable CHELSEADOLORESSHANNON Unavailable [address] + [place] [address] UE Unavailable Unavailable Unavailable CHELSEA SHANNON Unavailable [address] + [place] [address] UE Unavailable Unavailable Unavailable CHELSEA SHANNON Unavailable [address] + [place] [address] UE Unavailable Unavailable Unavailable Care Team Providers Name Role Phone Sergio Neil Attending Unavailable Alnning, Sergio Referring Unavailable Primay Care Physicia, No Primary Care Unavailable Wunning, Sergio Attending Unavailable Primay Care Physicia, No Primary Care Unavailable Wunning, Sergio Referring Unavailable Wunning, Sergio Attending Unavailable Wunning, Sergio Referring Unavailable Primay Care Physicia, No Primary Care Unavailable Eddie Medina Attending Unavailable Wunning, Sergio Referring Unavailable Wunning, Sergio Referring Unavailable Jolliff, Ya Primary Care Unavailable Wunning, Sergio Admitting Unavailable KandyamAvis Attending Unavailable AlnningSergio Attending Unavailable Jolliff, Ya Primary Care Unavailable Wunning, Sergio Referring Unavailable Wunning, Sergio Admitting Unavailable Wunning, Sergio Referring Unavailable Jolliff, Ya Primary Care Unavailable Wunning, Sergio Consulting Unavailable Marielos Moore Attending Unavailable Wunning, Sergio Admitting Unavailable Wunning, Sergio Referring Unavailable Jolliff, Ya Primary Care Unavailable Koram, Avis Annika Consulting Unavailable Sarbjit Kenyon Attending Unavailable Wunning, Sergio Attending Unavailable Wunning, Sergio Referring Unavailable Jolliff, Ya Primary Care Unavailable Fascione, Odalys Attending Unavailable Jolliff, Ya Primary Care Unavailable Jolliff, Ya Primary Care Unavailable Kelsey Hayes Attending Unavailable Fascione, Odalys Attending Unavailable Jolliff, Ya Primary Care Unavailable Fascione, Odalys Attending Unavailable Jolliff, Ya Primary Care Unavailable Fascione, Odalys Attending Unavailable Jolliff, Ya Referring Unavailable Fascione, Odlays Primary Care Unavailable Fascione, Odalys Attending Unavailable Fascione, Odalys Primary Care Unavailable Fascione, Odalys Attending Unavailable Odalys Shaw Primary Care Unavailable Sergio Neil Attending Unavailable Sergio Neil Referring Unavailable Ya Cavazos Primary Care Unavailable Live Field Attending Unavailable Ya Cavazos Primary Care Unavailable PROBLEMS PROBLEMS DATE TYPE CONDITION / CODE ATTENDING STATUS SOURCE Admitting Unknown / UNK(Unknown) Live Field Active [facility] 8 diagnosis 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 limb / L02.416(ICD-10) Hospital Repository Unknown R94.31 - Abnormal Adam, [place] Active [place] 8 electrocardiogram [facility] [ECG] [EKG] / Hospital R94.31(ICD-10) Repository Unknown S82.872A - Displaced Wunning, Active [place] 8 pilon fracture of left [facility] tibia, initial Hospital encounter for closed Repository fracture / S82.872A(ICD-10) PROCEDURES PROCEDURES No Procedure Records FoundRESULTS RESULTS CORONALS SAG MULTI Observed: 01/24/2018 Status: F Source: [place] OBL 3-D REC 1:56 PM [facility] REPOSITORY [facility] Imaging Services [address] [place] [address] Coronals Sag Multi Obl 3-D Rec MR#: [id number] Acct: [id number] Name: RED TRAN Rep #: [id number] : 1975 M 42 From: Amado Bermudez PCP: Ya Cavazos MD Status: REG CLI Study: Coronals Sag Multi Obl 3-D Rec Date of Exam: 01/24/18 Exam# [id number] Ordering Dr: Sergio Neil DPM STUDY: LOWER EXTREMITY WITHOUT CONTRAST LEFT REASON FOR EXAM: Male, 42 years old. Tibial fracture. RADIATION DOSAGE (If Supplied By Facility): CTDIvol = ( 15.35 ) mGy, DLP = ( 562.22 ) mGycm. Individualized dose optimization techniques were used for this CT.? TECHNIQUE: Axial images through the distal tibia, ankle , hind and midfoot without administration of intravenous contrast with sagittal and coronal reconstructions. 3-D color renditions. COMPARISON: Ankle series September 28, 2017. FINDINGS: The patient is status post ORIF complex ankle fracture. Subtalar arthrodesis. Posterior multilevel plate and screws stabilizing the distal tibia. An obliquely oriented screw extends from the calcaneus, extending through the talus and terminating in the distal tibia. Intramedullary susan extends from the tip of the fibula to the distal fibular diaphysis. There is a transverse irregular low attenuation line suggestive of a fracture involving the distal tibial metaphysis sagittal image 18 series 601, axial image 78 series 3 and coronal image 50 series 602. This suggests an incomplete union or nonunion. Bones are osteopenic. Vascular stent medial aspect of the distal lower leg. No focal fluid collections. No significant soft tissue swelling. CT/Coronals Sag Multi Obl 3-D Rec IMPRESSION: ORIF complex ankle fracture. Surgical hardware appears intact. Tibiotalar and talocalcaneal arthrodesis. 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 Osteopenia. Electronically Signed: Amado Bermudez MD at 5:47 EST , Service support , CC: Ya Cavazos MD; Sergio Neil DPM Sleeve Setter: Signed EXTREMITY LOWER Observed: 01/24/2018 Status: F Source: [place] WITHOUT CONTRA 1:35 PM [facility] Imaging Services [address] [place] [address] Extremity Lower without Contra MR#: [id number] Acct: [id number] Name: RED TRAN Rep #: [id number] : 1975 M 42 From: Amado Bermudez PCP: Ya Cavazos MD Status: REG CLI Study: Extremity Lower without Contra Date of Exam: 01/24/18 Exam# [id number] Ordering Dr: Sergio Neil DPKetan STUDY: LOWER EXTREMITY WITHOUT CONTRAST LEFT REASON FOR EXAM: Male, 42 years old. Tibial fracture. RADIATION DOSAGE (If Supplied By Facility): CTDIvol = ( 15.35 ) mGy, DLP = ( 562.22 ) mGycm. Individualized dose optimization techniques were used for this CT.? TECHNIQUE: Axial images through the distal tibia, ankle , hind and midfoot without administration of intravenous contrast with sagittal and coronal reconstructions. 3-D color renditions. COMPARISON: Ankle series September 28, 2017. FINDINGS: The patient is status post ORIF complex ankle fracture. Subtalar arthrodesis. Posterior multilevel plate and screws stabilizing the distal tibia. An obliquely oriented screw extends from the calcaneus, extending through the talus and terminating in the distal tibia. Intramedullary susan extends from the tip of the fibula to the distal fibular diaphysis. There is a transverse irregular low attenuation line suggestive of a fracture involving the distal tibial metaphysis sagittal image 18 series 601, axial image 78 series 3 and coronal image 50 series 602. This suggests an incomplete union or nonunion. Bones are osteopenic. Vascular stent medial aspect of the distal lower leg. No focal fluid collections. No significant soft tissue swelling. CT/Extremity Lower without Contra IMPRESSION: ORIF complex ankle fracture. Surgical hardware appears intact. Tibiotalar and talocalcaneal arthrodesis. 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 Osteopenia. Electronically Signed: Amado Bermudez MD at 5:47 EST , Service support , CC: Ya Cavazos MD; Sergio Neil DPM Sleeve Setter: Signed ANKLE MIN 3 VIEWS Observed: 09/28/2017 Status: F Source: [place] 10:30 AM [facility] Imaging Services [address] [place] [address] Ankle min 3 Views MR#: [id number] Acct: [id number] Name: RED TRAN Rep #: [id number] : 1975 M 42 From: Althea Akers MD PCP: Ya Cavazos MD Status: REG CLI Study: Ankle min 3 Views Date of Exam: 09/28/17 Exam# [id number] Ordering Dr: Odalys Shaw DPM STUDY: X-RAY - LEFT ANKLE REASON FOR EXAM: Male, 42 years old. Follow-up after surgical arthrodesis. TECHNIQUE: 3 view(s) of the ankle. COMPARISON: Radiographs of the left ankle dated June 28, 2017. FINDINGS: Patient has had open reduction internal fixation of the distal tibial fracture with plate and screws. Intramedullary nail traverses a fracture of the distal fibula. There has been surgical arthrodesis of the tibia to the calcaneus. The bones appear osteopenic. Normal medial and lateral malleoli. There are calcaneal spurs. The visualized metatarsals are within normal limits. There is soft tissue swelling. Endovascular stent is visible within the soft tissues of the posterior leg. RAD/Ankle min 3 Views IMPRESSION: 1. Residual fracture is visible within the distal tibia suggesting possible nonunion or incomplete union. 2. Status post open reduction internal fixation of distal fibular fracture. 3. Surgical arthrodesis of subtalar and tibiotalar articulations. Electronically Signed: Althea Akers MD at 10:06 EDT , Service support , CC: Ya Cavazos MD; Odalys Shaw DPM Sleeve Setter: Signed EMERGENCY DEPARTMENT Observed: 08/24/2017 Status: F Source: [place] SUMMARY 4:37 PM [facility] Medical Records Department [address] [place] [address] Emergency Department Summary 08/24/17 1015 MR#: [id number] Acct: [id number] Name: RED TRAN Rep #: [id number] : 1975 42 From: Kelsey Hayes MD PCP: Ya Cavazos MD Status: DEP ER - ER Visit Summary Date of Service: 08/24/17 Chief Complaint: Nosebleed History of Present Illness: The patient is a 42 M who 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 Patient states he woke this morning with a nosebleed that is now resolved. He was told to come to the ER if he was coughing up blood or if he got nosebleeds. He denies any recent facial trauma. He has had no recent URI symptoms. Patient is currently on Plavix. Physical Examination: Vital signs are unremarkable. Patient sitting upright in bed no acute distress. Head neck examination was scant blood diffusely throughout both nostrils. There is no focal clot. No active bleeding. Posterior pharynx examination reveals mild bloody mucus in the pharynx. Heart is regular rate and rhythm. No lung sounds are clear. Abdomen is soft nontender. Lower external examination of his left leg to be wrapped in an Seth wrap. He has no bleeding at the site. Test Results: [] Emergency Department Course and Treatment: Patient's nose was cleansed. He was given Afrin nasal spray. He has had no further bleeding. We discussed possibility of packing his nose he would prefer to avoid this. He is given a nasal clip. If he gets recurrent bleeding he is to try this and if not improved in 10 minutes he is to return. He voices understanding and agreement. Treatment Plan: [] Disposition: Discharge Impression: Nosebleed, resolved This note was generated with Landpointation software. It may contain incorrect words, spelling, and punctuation that were not noted in review of the chart prior to signing ED Disposition - Plan for ED Patient: Chief Complaint: Nosebleed Referrals: Ya Cavazos MD [Primary Care Provider] - What to do if you have Problems For any increased pain, shortness of breath, bleeding, nausea or vomiting, chest pain, or any unexpected problems, contact your Primary Care Provider. Call [facility] ([phone]) or report to the closest Emergency Room. Call 911 if necessary. 08/24/17 1637 <Electronically signed by Kelsey Hayes MD> Date Kelsey Hayes MD Cosigner Signature (If Indicated): Date CC: Ya Cavazos MD DISCHARGE INSTRUCTION Observed: 08/24/2017 Status: F Source: [place] 10:17 AM [facility] Medical Records Department [address] [place] [address] Discharge Instruction 08/24/17 1017 MR#: [id number] Acct: [id number] Name: RED TRAN Rep #: [id number] : 1975 42 From: Kelsey Hayes MD PCP: Ya Cavazos MD Status: PRE ER ED Disposition - Plan for ED Patient: Disposition: Home or Assisted Living Chief Complaint: Nosebleed Instructions: Nosebleed Referrals: Ya Cavazos MD [Primary Care Provider] - As Needed What to do if you have Problems For any increased pain, shortness of breath, bleeding, nausea or vomiting, chest pain, or any unexpected problems, contact your Primary Care Provider. Call [facility] ([phone]) or report to the closest Emergency Room. Call 911 if necessary. 08/24/17 1017 <Electronically signed by Kelsey Hayes MD> Date Kelsey Hayes MD Cosigner Signature (If Indicated): Date CC: Ya Cavazos MD CBC Collected: 07/30/2017 Status: F Source: [facility] 7:58 AM [facility] REPOSITORY Order Comment: [place]: M TYPE CODE TESTS RESULT OUT OF RANGE REFERENCE UNITS LAB L200.57037 4.5-11.0 K/CU MM Normal WBC 5.2 LAB L200.58647 4.50-6.00 M/CU MM Low RBC 4.44 LAB L200.90873 13.5-17.5 G/DL Normal HGB 13.9 LAB L200.44373 41.0-53.0 % Normal HCT 42.8 LAB L200.58847 80.0-99.0 fl Normal MCV 96.4 LAB L200.59989 32.0-36.0 GM/DL Normal MCHC 32.5 LAB L200.55369 11-14.5 Normal RDW 14.5 LAB L200.55192 9.4-12.4 Normal MPV 11.1 LAB L200.57968 150-450 K/CU MM Normal PLT 162 LAB L200.36386 Less than 1 % Normal NRBC 0.0 Performed By: #### L200.00228 #### [facility] [address] [place] [address] RENAL Collected: 07/30/2017 Status: F Source: [facility] 7:58 AM [facility] REPOSITORY Order Comment: [place]: M TYPE CODE TESTS RESULT OUT OF RANGE REFERENCE UNITS LAB L500.44178 136-145 MMOL/L Normal NA 140 LAB L500.74911 3.5-5.1 MMOL/L Normal K 4.0 LAB L500.22689 98-107 MMOL/L High CL 108 LAB L500.34720 21-32 MMOL/L Normal CO2 28 LAB L500.33050 5-16 MMOL/L Low AGAP 4 LAB L500.53871 70-100 MG/DL Normal GLU 88 Result Comment: 70-100- Normal Fasting; 100-125 Impaired Fasting; greater than 126 on more than one result- Diabetes. ADA guidelines. Results may be falsely elevated after the administration of Sulfapyridine. Results may be falsely depressed after the administration of Sulfasalazine. LAB L500.51889 7-26 MG/DL Normal BUN 11 LAB L500.67785 0.670-1.170 MG/DL Normal CREAT 0.959 Result Comment: Patients receiving either N-Acetylcysteine (NAC) or Metamizole prior to venipuncture, may have falsely depressed results. LAB L500.63501 15-24 Low BUN/CREA 11 LAB L500.85606 3.2-5.0 GM/DL Normal ALBUMIN 3.9 LAB L500.16610 8.5-10.1 MG/DL Normal CALCIUM TOTAL 8.5 LAB L500.90842 2.5-4.9 MG/DL Normal PHOS 3.2 Performed By: #### L500.97795, L500.81407 #### [facility] [place] [address] GFR EST Collected: 07/30/2017 Status: F Source: [facility] 7:58 AM [facility] REPOSITORY Order Comment: [place]: TYPE CODE TESTS RESULT OUT OF RANGE REFERENCE UNITS LAB L500.56221 ML/MIN Normal IF non-AFR Greater than AMER 60 LAB L500.68219 ML/MIN Normal IF Greater than AMER 60 Performed By: #### L500.76217, L500.07064 #### [facility] [address] [place] [address] OR Observed: 07/30/2017 Status: UNK Source: [facility] 7:38 AM [facility] REPOSITORY DATE OF SERVICE: 07/30/2017 SURGEON: Live Field MD PREOPERATIVE DIAGNOSIS: Pseudoaneurysm left leg. POSTOPERATIVE DIAGNOSIS: Pseudoaneurysm left leg. PROCEDURE: 1. Ultrasound-guided access antegrade left common femoral artery. 2. Left lower extremity angiogram. 3. A 5 x 100 Viabahn of the posterior tibial covering the pseudoaneurysm. INDICATION: The patient with multiple surgeries to his left with fractures and revisions and developed a pseudoaneurysm off the posterior tibial artery. Discussed that we would do either try to cover it or possibly do a thrombin injection. The risk, benefits, alternatives discussed. He agreed to proceed and had discussed the risk of limb loss, limb occlusion and stent occlusion with this, an open operation with multiple surgeries through there and possible infection not really possible at this point. The risks, benefits and alternatives discussed. He agreed to proceed. OPERATION: The patient brought to the operating room, underwent the appropriate time-out and consent and underwent sedation, was prepped and draped in a sterile fashion. We did ultrasound-guided access antegrade in the left common femoral artery. We put the wire down, long 6-Thai sheath, down to the below the popliteal artery. We imaged from there showing he had a little bit smaller anterior tibia by flow, large peroneal all the way down to the ankle and then collateral around. The posterior tibia was the main runoff. It was a large very large vessel down at the distal part by the ankle. Had a large pseudoaneurysm there. We were able to get the wire across through there and once we were through, we switched to an 0.018 wire. We ballooned with a 47-mm balloon Seibert just confirming the size and had no discomfort with this and the vessel was a little bit larger, so we elected it would probably be best if we just did the stent which we went ahead with. He did well. We put a 5 x 100 Viabahn, post ballooned with a 4-mm Av without any discomfort. Competition angiogram showed great flow through here. We then put a shorter sheath and deployed a Vascade with good hemostasis. Had a little bit of kind of abdominal wall spasm but this appeared to be stable. He was then brought to recovery in stable condition. SEDATION: This is a 42-year-old gentleman with a procedure time of a half hour by Dr. Live Field, underwent moderate sedation supervised by Dr. Live Field. The patient was independently monitored using EKG, pulse oximetry, automated blood pressure. Permanent records can be found for complete [id number] record. He was given Versed and fentanyl over the 30-minute procedure time. [facility] PATIENT NAME: RED TRAN [address] [place] MEDICAL REC #: [id number] [place] [address] ADMIT DATE: DISCHARGE DATE: OPERATIVE REPORT ATTENDING PHY: Live Field MD Live Field MD [id number] SSI File#: [id number] Verified/Reviewed by 07/30/[address] [place] [address] [facility] MED[facility] REC #: [id number] [place] [address] ADMIT DATE: DISCHARGE DATE: OPERATIVE REPORT ATTENDING PHY: Live Field MD CTA ABD W/RUNOFF W/WO Observed: 07/15/2017 Status: F Source: [place] CONTRAST 1:59 PM [facility] Imaging Services [address] [facility] [place] [address] CTA Abd w/Runoff W/WO Contrast MR#: [id number] Acct: [id number] Name: RED TRAN Rep #: [id number] : 1975 M 42 From: Kathryn Vann MD PCP: Ya Cavazos MD Status: REG CLI Study: CTA Abd w/Runoff W/WO Contrast Date of Exam: 07/15/17 Exam# [id number] Ordering Dr: Sergio Neil DPM STUDY: CTA OF THE ABDOMINAL AORTA AND BILATERAL LOWER EXTREMITIES REASON FOR EXAM: Male, 42 years old. Ankle fluid collection RADIATION DOSAGE (If Supplied By Facility): CTDIvol = ( 8.66 ) mGy, DLP = ( 1091.08 ) mGycm TECHNIQUE: Axial CT angiography multi-detector data acquisition was obtained from the to the following intravenous administration of 100 ml of Isovue 370 contrast. Axial images and MIP images were reconstructed from the axial data set. Post-processing of the angiographic images was performed, with multiplanar reformation and 3D reconstruction. Individualized dose optimization techniques were used for this CT. TECHNICAL QUALITY: Good COMPARISON: June 28, 2017, kidney is study, March 19, 2017 CT scan left lower extremity. Descriptors of Narrowing: None (0%) Mild (< 50%) Moderate (50-70%) Severe (70-90%) Subtotal/Total Occlusion (90-100%) Non-Evaluable (technically non-diagnostic FINDINGS: Abdominal aorta: No demonstrated narrowing. Celiac and superior mesenteric arteries: No demonstrated narrowing. Inferior mesenteric artery: No demonstrated narrowing. Right renal artery(arteries): No demonstrated narrowing. Left renal artery(arteries): No demonstrated narrowing. Right common iliac artery: No demonstrated narrowing. Right external iliac artery: No demonstrated narrowing. Right internal iliac artery: No demonstrated narrowing. Left common iliac artery: No demonstrated narrowing. Left external iliac artery: No demonstrated narrowing. Left internal iliac artery: No demonstrated narrowing. RIGHT LOWER EXTREMITY Right common femoral artery: No demonstrated narrowing. Right profundus femoris: No demonstrated narrowing. Right superficial femoral: No demonstrated narrowing. Right popliteal artery: No demonstrated narrowing. Right tibioperoneal trunk: No demonstrated narrowing. Right anterior tibial artery: No demonstrated narrowing. Right posterior tibial artery: No demonstrated narrowing. Right peroneal artery: No demonstrated narrowing. LEFT LOWER EXTREMITY Left common femoral artery: No demonstrated narrowing. Left profundus femoris: No demonstrated narrowing. Left superficial femoral: No demonstrated narrowing. Left popliteal artery: No demonstrated narrowing. Left tibioperoneal trunk: No demonstrated narrowing. Left anterior tibial artery: No demonstrated narrowing. Left posterior tibial artery: No demonstrated narrowing. Left peroneal artery: No demonstrated narrowing. Images of the left foot were included in this study. There is partial visualization of extensive hardware including a cortical screw extending into the left calcaneus. There is a fragmented appearance of the distal tibia and a fluid collection deep to the Achilles which is partially fluid-filled and partially enhancing. On the right side of this fluid collection there is a focus of bright enhancement and are partially thrombosed pseudoaneurysm and/or active hematoma the collectively measures 5.0 x 3.5 cm. It is closely related to the posterior tibial artery. There is also asymmetric early partial enhancement of the popliteal vein. With Within the posterior ankle soft tissues there is a visualized fluid collection The base of the lungs are clear. The visualized liver gallbladder spleen adrenal glands pancreas both kidneys appear normal. There is a moderate amount of stool in the colon the bladder is distended the prostate appears grossly unremarkable. There are reactive appearing lymph nodes in the left groin that measure up to 1.6 x 1.9 cm. The bones are somewhat osteopenic in the left greater than right lower extremities. CT/CTA Abd w/Runoff W/WO Contrast IMPRESSION: Normal abdominal aorta and bilateral lower extremity run-off without a hemodynamically significant stenosis. Abnormal left lower extremity with multiple fragmented appearing bony structures surrounding hardware allowing for any procedure is suspicious for osteomyelitis. There is a focal fluid collection appears very partially enhancing which may represent a pseudoaneurysm or potentially active hematoma and abscess is not entirely excluded. Recommend consideration for follow-up vascular ultrasound with specific focus to the distal posterior tibial vein and ankle. It should be noted that the technique for this study is a vascular study aorta angiogram bilateral lower extremity runoff. Images with this technique, are not particularly specific for bone or soft tissue of the foot or ankle. Constructed images were requested. Axial reconstructed images are provided for interpretation at the time of this study. N.B. : The above information has been verbally conveyed by Kathryn Vann MD to Dr. Davdi Cortez, Covering Physician, on 07/15/2017 18:03:30 (ET). Electronically Signed: Kathryn Vann MD at 17:15 EDT Tel , Service support , N.B. : The above information has been verbally conveyed by Kathryn Vann MD to Dr. David Cortez, Covering Physician, on 07/15/2017 18:03:30 (ET). CC: Ya Cavazos MD; Sergio Neil DPM Sleeve Setter: Signed OPERATIVE REPORT Observed: 07/14/2017 Status: F Source: [place] 10:38 PM [facility] Medical Records Department [address] [place] [address] Operative Report 06/28/17 1203 MR#: [id number] Acct: [id number] Name: RED TRAN Rep #: [id number] : 1975 41 From: Sergio Neil DPM PCP: Ya Cavazos MD Status: DIS IN Y Location: [place] [address] Report of Operation Date of Procedure: 06/28/17 - Laurence Neil DPM Pre-Operative Diagnosis: Tibial Pilon fracture nonunion left Post-Operative Diagnosis: Same Surgery/Procedure Performed:: Debridement of left tibial pilon fracture nonunion with tibiotalocalcaneal arthrodesis. Bone marrow aspiration and placement of bone graft at arthrodesis site, left. 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 He has developed several episodes of drainage from the site. Bone biopsy was negative for growth, negative for osteomyelitis. Due recurrent symptoms and given findings, he has elected to proceed forward with debridement of the nonunion with bone grafting, bone marrow aspiration, and fixation of the site. The rationale of the procedure was discussed with him in detail, reviewed the possible benefits vs risks, and potential complications. Reviewed the goals and expectations. Reviewed alternative options. Reviewed estimated healing time/post operative course. The patient expressed understanding and agreement and elected to proceed forward with the biopsy for further evaluation at this time. The consent forms were reviewed with him, and he freely signed them. All of his questions were answered. Operative procedure: The patient was brought back into the operating room and was placed on the operating room in the supine position. The patient was secured to the operating room table with a safety belt around his waist. The patient received 2 grams of IV Cephazolin as well as 750mg of IV Levaquin for antibiotic prophylaxis. A well padded pneumatic tourniquet was applied around his left thigh. The patient received general anesthesia per the anesthesia team. The left lower extremity was scrubbed, prepped, and draped in the usual aseptic fashion. Small ulceration anterior ankle was covered with a sterile post op site bandage The patient was carefully placed into the prone position on the operating room table, being sure to pad and protect all [place] prominences and all important areas on the patient. A timeout was performed and the patient was properly identified and the surgical plan was confirmed. A Jamshidi needle was inserted into the proximal medial tibia, a total of 60mL of bone marrow aspirate was obtained. This was spun down to concentrated bone marrow aspirate to be mixed with the cancellous bone chips. The left foot was elevated for 3 minutes and the left thigh pneumatic tourniquet was inflated to 350mmHg. Further attention was directed to the left ankle. Using a 15 scalpel blade an incision was made overlying the posterior subtalar and ankle joints, posterior to the Achilles tendon. Careful dissection was completed down to the Achilles tendon. The Achilles tendon was incised in Z fashion, splitting the tendon longitudinally down the middle. There was a proximal medial arm and a distal lateral arm to complete the Z tenotomy. Blunt direction was completed down to the posterior subtalar joint and ankle joint capsules, the medial neurovascular bundle was protected out of the away medially. The flexor hallucis longus tendon and muscle belly were identified and reflected medially as well. The posterior ankle joint and subtalar joint capsules were visualized. There was noted to be hypertrophy and thickening of the ankle joint capsule. The capsules were incised using a 15 scalpel blade and reflected from the posterior aspect, exposing the joint surfaces, along with exposing the tibial pilon nonunion site. There was noted to be nonviable fibrotic avascular tissue to the nonunion site. There was noted to be residual Hydroset bone cement present. There was no purulence or evidence of abscess present. The nonunion site was debrided down to healthy, viable tissue, the debrided tissue was sent to pathology as specimen. All of the cartilage of the ankle joint was debrided and removed from the bone ends, this was completed down to healthy viable bleeding bone. The subtalar joint was visualized, the joint surfaces were prepped by removing all of the cartilage from the subtalar joint. All of the cartilage of the subtalar joint was debrided and removed from the bone ends, this was completed down to healthy viable bleeding bone. This was completed using curettes, bone cutting rongeurs, as well as a bone bur being sure not to create osteonecrosis. The site was flushed out with copious amounts of normal saline solution. The ankle joint and the subtalar joint surfaces were drilled / fenestrated with a 3.0mm drill multiple times, also they were prepped with an small osteotome to enhance and aid vascularity and fusion to the arthrodesis sites. The arthrodesis surfaces of the ankle and subtalar joints were coated with [employer] Augment graft to also aid the healing of the arthrodesis. Due to the significant nonunion site, which was debrided out, there was a residual void to the ankle fusion site. The nonunion site as well as the arthrodesis sites were packed with cancellous bone allograft mixed with the bone marrow aspirate concentrate to aid healing. A total of 50mL of cancellous bone allograft was used, most of which was needed for the ankle arthrodesis and nonunion debridement site to fill the void. The foot was placed at 90 degrees to the leg, and the heel in slight valgus, and the prepped ankle and subtalar joints surfaces were brought together. They were fixated using rigid open reduction internal fixation technique. First one 7.0mm partially [employer] 120mm in length screw was placed from the posterior plantar calcaneus going up through the subtalar and ankle arthrodesis sites to the anterior tibia. A washer was used on the screw head. There was excellent bite and compression across the arthrodesis sites. One [employer] posterior TTC locking plate with a total of eight locking [employer] screws and two nonlocking cortical [employer] screws were used to secure the plate across the arthrodesis sites. Once hardware was placed, there was excellent stability present with good alignment present. Alignment and placement were confirmed using intra operative fluoroscopy. The ankle and subtalar joints were rigidly fixated, very stable, and in good alignment. The talus noted to be under the tibial, and clinically the foot was plantigrade with neutral flexion, heel in slight valgus position. The surgical site was flushed out with copious amounts of normal saline solution. The thigh pneumatic tourniquet was deflated and there was immediate return of warmth and perfusion. CFT < 2 seconds to all toes, and normal temperature present. Pedal pulses were intact. Hemostasis was achieved prior to closure. The joint capsules and deep fascia layer were reapproximated using 2-0 Vicryl, the sides of the Achilles tendon were brought together and reapproximated using 3-0 Vicryl, the subcutaneous tissue layer was reapproximated using 3-0 Vicryl. The skin was reapproximated using 3-0 Nylon. 10mL of 0.5% Bupivacaine was given as a saphenous nerve block. A dressing was applied which consisted of Betadine soaked Adaptic, 4x4 gauze, Kerlix, seth bandages, and a well padded below knee posterior splint secured with seth bandages. The patient received a left lower extremity popliteal block by the anesthesia team at the end of the procedure. The patient tolerated the procedure and the anesthesia well with no complications. The patient was transported from the operating room to the recovery room with vital signs stable and in good condition. The patient will be admitted for post operative pain control and observation. I spoke with the hospitalist, who agreed with admission. Post operative orders were placed. Post operative xrays of the ankle (3 views) as well as 2 views of the calcaneus (including calcaneal axial) were obtained in the recovery room which were reviewed; they confirmed TTC arthrodesis in good alignment, with bone grafting and stable fixation across the arthrodesis sites, no complications seen. He will be followed as an inpatient. Grafts/Implants Used: Cancellous Bone Chips mixed with concentrated bone marrow aspirate - Complications None 07/14/17 1224 <Electronically signed by Sergio Neil DPM> Date Sergio Neil DPM CC: Ya Cavazos MD; Sergio Neil DPM Signed DISCHARGE SUMMARY Observed: 06/30/2017 Status: F Source: [place] 7:05 AM [facility] Medical Records Department [address] [place] [address] Discharge Summary 06/29/17 1730 MR#: [id number] Acct: [id number] Name: RED TRAN Rep #: [id number] : 1975 41 From: Avis Xiao MD PCP: Ya Cavazos MD Status: DIS IN Y Location: [facility] [id number] ADDENDUM by Avis Xiao MD on 06/30/17 at 0705 Code Visit Inpatient E AND M: [id number] Disch Hosp 06/30/17 0705 <Electronically signed by Avis Xiao MD> Date Avis Xiao MD cc: Ya Cavazos MD; Avis Xiao MD * Signed 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 Healing fracture of the distal fibular diaphysis. Electronically Signed: Tyron Abbott MD at 13:52 EDT Tel , Service support , podiatry Operations: None, - - left ankle surgery Summary of Care Provided: Patient is a 41 year old M with a history of left ankle fracture who was admitted for nonunion of his left ankle fracture. He had debridement of his left tibial pilon nonunion, grafting and arthrodesis on 06/28/17. . He remained stable, and pain was well controlled. He was discharged home on POD 1. He is to follow up with podiatry and his primary care doctor. He was given scripts for xarelto for DVT prophylaxis, percocet and vitamin D by podiatry upon discharge. Discharge Diet: No Restrictions - please follow up with outpatient physical therapy Discharge Activity: Use Crutches Weight Bearing Status: Toe touch weight bearing Call your doctor if your incision/area has: Continuous Slow Oozing, Increased Pain/ Swelling, Foul Smelling Discharge, Swelling at the incision site Call your doctor if you observe: Fever of 101 or Higher Cleanse incision/area with: - - as per podiatry Home Medications: Medications to take at Discharge NK [NK] 05/27/17 Primary Care Physician: Ya Cavazos MD [Primary Care Provider] - Please follow up with your Primary Care Physician in: 2 weeks Please Follow Up With: Sergio Neil DPM When: one week Disposition: Home Minutes spent on discharge:: 20 Patient Condition:: Good Medical Necessity - Tobacco Use Smoking Status: Current every day smoker Tobacco Use: Cigarettes Meaningful Use Info Meaningful Use Diagnoses (Choose all that apply): None applicable 06/29/171750 <Electronically signed by Avis Xiao MD> Date Avis Xiao MD Cosigner Signature (if applicable): Date CC: Ya Cavazos MD; Avis Xiao MD Signed DISCHARGE INSTRUCTION Observed: 06/29/2017 Status: F Source: [place] 5:55 PM [facility] Medical Records Department [address] [place] [address] Instructions for Home/Discharge Instructions 06/29/171753 MR#: [id number] Acct: [id number] Name: RED TRAN Rep #: [id number] : 1975 41 From: Sergio Neil DPM PCP: Ya Cavazos MD Status: ADM IN Discharge Diet: No Restrictions - please follow up with outpatient physical therapy Discharge Activity: Use Crutches Weight Bearing Status: No weight bearing - No weightbearing left foot Keep extremity elevated above heart level: Left Leg - Keep left foot elevated with pillows at least 50 minutes of every hour. Keep heel offloaded. Call your doctor if your incision/area has: Continuous Slow Oozing, Sudden Increased Bleeding, Increased Pain/ Swelling, Foul Smelling Discharge, Swelling at the incision site Call your doctor if you observe: Fever of 101 or Higher, Coldness, Increased Pain, Shortness of breath, Chest pain, Increased palpitations (irregular heartbeat), Calf discomfort, Uncontrolled pain Cleanse incision/area with: Do not get Incision Wet, Keep Dressing Clean AND Dry, - - as per podiatry Allergies/Adverse Reactions: Allergies No Known Allergies Allergy (Verified 06/21/17 11:13) Medications to take at Discharge Amoxicillin/Potassium Clav [Augmentin 500-125 Tablet] 1 ea PO Q12H #14 tab 06/29/17 Ergocalciferol [Vitamin D] 50,000 unit PO Q7D #8 cap 06/29/17 Oxycodone HCl/Acetaminophen [Percocet 5/325] 1 tab PO Q6H PRN PRN 3 Days #30 tab 06/29/17 Rivaroxaban [Xarelto] 10 mg PO DAILY 30 Days #30 tab 06/29/17 The following prescriptions were given: Oxycodone HCl/Acetaminophen [Percocet 5/325] 1 tab PO Q6H PRN PRN 3 Days #30 tab PRN Reason: Pain Amoxicillin/Potassium Clav [Augmentin 500-125 Tablet] 1 ea PO Q12H #14 tab Ergocalciferol [Vitamin D] 50,000 unit PO Q7D #8 cap Rivaroxaban [Xarelto] 10 mg PO DAILY 30 Days #30 tab Primary Care Physician: Ya Cavazos MD [Primary Care Provider] - Please follow up with your Primary Care Physician in: 2 weeks Please Follow Up With: Sergio Neil DPM When: next week, sooner if needed Proposed Discharge Date: 06/29/17 06/29/17 175 <Electronically signed by Sergio Neil DPM> Date Sergio Neil DPM CC: Ya Cavazos MD DISCHARGE INSTRUCTION Observed: 06/29/2017 Status: F Source: [place] 5:27 PM [facility] Medical Records Department [address] [place] [address] Instructions for Home/Discharge Instructions 06/29/17 1724 MR#: [id number] Acct: [id number] Name: RED TRAN Rep #: [id number] : 1975 41 From: Avis Xiao MD PCP: Ya Cavazos MD Status: ADM IN - Discharge Diagnoses Reason(s) for Visit for Discharge Instructions: left ankle surgery You will use the following diet at home:: No restrictions Your food should be the consistency of: Regular Your liquids should be the consistency of: Regular/Thin Discharge Activity: Use Crutches Weight Bearing Status: Toe touch weight bearing Call your doctor if your incision/area has: Continuous Slow Oozing, Increased Pain/ Swelling, Foul Smelling Discharge, Swelling at the incision site Call your doctor if you observe: Fever of 101 or Higher Cleanse incision/area with: - - as per podiatry Allergies/Adverse Reactions: Allergies No Known Allergies Allergy (Verified 06/21/17 11:13) Medications to take at Discharge NK [NK] 05/27/17 Primary Care Physician: Ya Cavazos MD [Primary Care Provider] - Please follow up with your Primary Care Physician in: 2 weeks Proposed Discharge Date: 06/29/17 06/29/17 1727 <Electronically signed by Avis Xiao MD> Date Avis Xiao MD CC: Ya Cavazos MD HISTORY AND PHYSICAL Observed: 06/28/2017 Status: F Source: [place] EXAM 4:37 PM [facility] Medical Records Department [address] [place] [address] History and Physical 06/28/17 1630 MR#: [id number] Acct: [id number] Name: RED TRAN Rep #: [id number] : 1975 41 From: Gerald Orellana MD PCP: Ya Cavazos MD Status: ADM YARI Y Location: MS[facility] [id number] Problem List (1) Closed fracture of left tibia with nonunion Status: Chronic (2) Left leg pain Status: Chronic (3) Nonunion of bone graft Status: Suspected (4) 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 Neil. The patient has had no union of his left ankle fracture and underwent left ankle fusion and subtalar joint effusion . He is admitted to the hospital for postoperative care and pain control. I saw him his only complaint was his surgical pain, he is requesting more IV analgesia. He denies any chest pain, shortness of breath , palpitations or rapid heartbeat. 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 Bone biopsy 08/03/15. I+D ankle 10/21/15. Psychiatric History: No pertinent psych hx Smoking Status: Current every day smoker Tobacco Use: Cigarettes - *Family History Maternal History Items: Asthma Paternal History Items: Hypertension, No pertinent history Review of Systems Comment: All Systems were reviewed with pertinent positives mentioned in the HPI above. VTE Information - Inpt Only VTE Present on Admission: No VTE Mechan Device Prophylaxis: SCD's VTE Pharm Prophylaxis ordered?: No - Physical Exam General: Alert, Oriented x3 HEENT: Atraumatic Oral: Moist Mucosa Neck: Supple Lungs: Clear to auscultation Cardiovascular: Regular rate, Normal S1, Normal S2 Abdomen: Bowel Sounds Present, Soft, Non Tender Extremities: No edema Vital Signs Temp Pulse Resp BP Pulse Ox 98.3 F 78 18 116/71 99 06/28/17 15:43 06/28/17 15:43 06/28/17 15:43 06/28/17 15:43 06/28/17 15:43 Oxygen Delivery Method Room Air Weight: 70.307 kg Body Mass Index (BMI) 20.4 Intake and Output for Last 24 Hours Intake Total 1900 / 1900 Output Total 400 / 400 Balance 1500 / 1500 Laboratory Tests Past 24 Hrs Hgb 13.2 Hct 39.1 L Vitamin D 25-Hydroxy 10.7 L Assessment/Plan 1. Status post left ankle surgery; postoperative management per Dr. Neil. We will optimize pain control 2. Nicotine dependency; the patient is recommended to quit smoking, will place him on nicotine transdermal patch. 3. DVT prophylaxis with Lovenox. Code Visit Inpatient E AND M: 44303 Init Hosp L2 OBSV E AND M: 04595 Initial observation care L3 06/28/17 1637 <Electronically signed by Gerald Orellana MD> Date Gerald Orellana MD Cosigner Signature: Date (if applicable) CC: Ya Cavazos MD; Gerald Orellana MD Signed HH, HEMOGLOBIN AND Collected: 06/28/2017 Status: F Source: [place] HEMATOCRIT 12:35 PM [facility] TYPE CODE TESTS RESULT OUT OF RANGE REFERENCE UNITS LAB L100.1300 13.0-16.5 g/dl Normal HGB 13.2 LAB L100.1400 40-54 % Low HCT 39.1 Performed By: #### L100.0600 #### [facility] [address] [place], [address] ANKLE MIN 3 VIEWS Observed: 06/28/2017 Status: F Source: [place] 12:19 PM [facility] Imaging Services [address] [place] [address] Ankle min 3 Views MR#: [id number] Acct: [id number] Name: RED TRAN Rep #: [id number] : 1975 M 41 From: Tryon Abbott MD PCP: Ya Cavazos MD Status: ADM YARI Study: Ankle min 3 Views Date of Exam: 06/28/17 Exam# [id number] Ordering Dr: Sergio Neil DPM STUDY: X-RAY - LEFT ANKLE REASON FOR EXAM: Postop. TECHNIQUE: 3 view(s) of the ankle. COMPARISON: Radiographs 01/29/2017. FINDINGS: There is orthopedic hardware bridging a tibiotalar and posterior subtalar arthrodesis and chronic fracture of the distal tibia. There is intact orthopedic hardware bridging a healing fracture of the distal fibular diaphysis. There are postoperative changes from previous external fixation. There is an overlying cast. RAD/Ankle min 3 Views IMPRESSION: Tibiotalar and posterior subtalar arthrodesis. Healing fracture of the distal fibular diaphysis. Electronically Signed: Tyron Abbott MD at 13:52 EDT Tel , Service support , CC: Ya Cavazos MD; Sergio Neil DPM Sleeve Setter: Signed CALCANEUS MIN 2 VIEWS Observed: 06/28/2017 Status: F Source: [place] 12:19 PM [facility] Imaging Services [address] [place] [address] Calcaneus min 2 Views MR#: [id number] Acct: [id number] Name: RED TRAN Rep #: [id number] : 1975 M 41 From: Tyron Abbott MD PCP: Ya Cavazos MD Status: ADM YARI Study: Calcaneus min 2 Views Date of Exam: 06/28/17 Exam# [id number] Ordering Dr: Sergio Neil DPM STUDY: X-RAY - LEFT CALCANEUS REASON FOR EXAM: Postop. TECHNIQUE: 2 view(s) of the calcaneus were obtained. COMPARISON: Radiographs 01/29/2017. FINDINGS: There is orthopedic hardware transfixing tibiotalar and posterior subtalar arthrodesis and chronic fracture of the distal tibia. There is an overlying cast. Electronically Signed: Tyron Abbott MD at 13:53 EDT Tel , Service support , RAD/Calcaneus min 2 Views CC: Ya Cavazos MD; Sergio Neil DPM Sleeve Setter: Signed VITAMIN D,25 HYDROXY Collected: 06/28/2017 Status: F Source: [place] 6:10 AM [facility] TYPE CODE TESTS RESULT OUT OF REFERENCE UNITS RANGE LAB L506.1000 29.95-100.01 ng/mL Low Vitamin D 10.7 25-OH Result Comment: Vitamin D 25(OH) Status Range Deficiency <20 ng/mL (50nmol/L) Insuffciency 20 - 30 ng/mL (50 - 75 nmol/L) Sufficiency 30 - 100 ng/mL (75 - 250 nmol/L) Toxicity >100 ng/mL (>250 nmol/L) Performed By: #### L506.1000 #### [facility] [address] [place], [address] ANKLE 2 VIEWS Observed: 06/28/2017 Status: F Source: [place] 12:28 AM [facility] Imaging Services [address] [place] [address] Ankle 2 Views MR#: [id number] Acct: [id number] Name: RED TRAN Rep #: [id number] : 1975 M 41 From: Tyron Abbott MD PCP: Ya Cavazos MD Status: ADM YARI Study: Ankle 2 Views Date of Exam: 06/28/17 Exam# [id number] Ordering Dr: Sergio Neil DPM STUDY: X-RAY - LEFT ANKLE REASON FOR EXAM: Left tibial pylon fracture with nonunion. TECHNIQUE: 2 fluoroscopic view(s) of the ankle. COMPARISON: None. FINDINGS: There is orthopedic hardware transfixing tibiotalar and posterior subtalar arthrodesis and chronic fracture of the distal tibia. There is also orthopedic hardware transfixing a healing fracture of the distal fibular diaphysis. Electronically Signed: Tyron Abbott MD at 13:52 EDT Tel , Service support , RAD/Ankle 2 Views CC: Ya Cavazos MD; Sergio Neil DPM Sleeve Setter: Signed BONE (FX/NONFRACTURE) Observed: 06/28/2017 Status: F Source: [place] 12:00 AM [facility] [place] Patient: RED TRAN : 1975 (41/M) Acct Num: [id number] Phys: Avis Xiao MD Unit Num: [id number] Loc: MS3 [id number] Specimen: [id number] Received: 06/28/17 699 Spec Type: Bone TISSUES TISSUES: Ankle, NOS GROSS DESCRIPTION Received in fixative is one container labeled with the patient's name and designated debrided left ankle nonunion. The specimen consists of multiple pieces of bone and bone reamings that in aggregate measure 4.5 x 4.5 x 1.5 cm. Forming Machine Adjuster tissue is submitted in two cassettes after decalcification. / SJ :fabrice 06/28/17 TC:5 CPT: 47184, 16273 HEADER OPERATION: Left tibial pilon fracture nonunion debridement with ankle fracture PRE-OP DIAGNOSIS: Left ankle fracture TISSUE SUBMITTED: Debrided left ankle, nonunion MICROSCOPIC DESCRIPTION Slides are reviewed. MICROSCOPIC DIAGNOSIS Debrided left ankle, nonunion: Pieces of bone with reactive changes and callous formation, clinically ankle fracture. Negative for acute osteomyelitis. SJ:fabrice 07/03/17 Signed Chip Annin 07/03/17 <signature on file> Performed By: #### PBON #### [facility] [address] [place], [address] Observed: 06/13/2017 Status: F Source: [place] CULTURE, WOUND 11:00 AM [facility] Gram Stain Gram Stain 3+ Red Blood Cells 1+ White Blood Cells No organisms seen Wound Culture No growth aerobically. Performed By: #### M100.1400 #### [facility] [address] [place], [place], [address] 12 LEAD ELECTROCARDIOGRAM Observed: 04/24/2017 Status: F Source: [place] 2:36 PM [facility] Cardiovascular Services [address] [place] [address] 12 Lead EKG 04/22/17 1414 MR#: [id number] Acct: [id number] Name: RED TRAN Rep #: [id number] : 1975 41 From: Eddie Medina MD Attending Dr: Sergio Neil DPM Status: [facility] Ordering Dr: Sergio Neil DPM Date: 04/22/17 Location: [facility] Sex: M AA Admitted: Test Reason : PRE-OP Blood Pressure : / mmHG Vent. Rate : 077 BPM Atrial Rate : 077 BPM P-R Int : 168 ms QRS Dur : 092 ms QT Int : 380 ms P-R-T Axes : 077 020 056 degrees QTc Int : 430 ms Normal sinus rhythm Right atrial enlargement Voltage criteria for left ventricular hypertrophy Abnormal ECG When compared with ECG of 22-OCT-2015 23:41, No significant change was found Confirmed by EDDIE MEDINA MD ([id number]), art editor MANUEL AKERS ([id number]) on 04/24/2017 2:36:29 PM Referred By: Sergio Neil Confirmed By:EDDIE MEDINA MD 04/24/17 1436 Date Eddie Medina MD CC: No Primary Care Physician; Sergio Neil DPM Signed OPERATIVE REPORT Observed: 04/23/2017 Status: F Source: [place] 9:38 AM [facility] Medical Records Department [address] [place] [address] Operative Report 04/22/17 1612 MR#: [id number] Acct: [id number] Name: RED TRAN Rep #: [id number] : 1975 41 From: Sergio Neil DPM PCP: Care Physician, No Primary Status: [facility] Y Location: [facility] Report of Operation Date of Procedure: 04/22/17 Pre-Operative Diagnosis: Nonunion left tibial pilon fracture w/ abscess/draining ulcer Post-Operative Diagnosis: Same Surgery/Procedure Performed:: Bone biopsy of the distal tibial plafond nonunion, left Description of Surgical Findings:: Soft nonviable bone distal tibia, left global mobility specialist: Yes - Dr. 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 He has developed 2 episodes of drainage from the site. Due to this, we discussed bone biopsy first for further evaluation. The rationale of the procedure was discussed with him in detail, reviewed the possible benefits vs risks, and potential complications. Reviewed the goals and expectations. Reviewed alternative options. Reviewed estimated healing time/post operative course. The patient expressed understanding and agreement and elected to proceed forward with the biopsy for further evaluation at this time. The consent forms were reviewed with him, and he freely signed them. All of his questions were answered. Operative procedure: The patient was brought back into the operating room and was placed on the operating room in the supine position. The patient was secured to the operating room table with a safety belt around his waist. A well padded mid calf tourniquet was applied, but was not inflated or used. The patient received general anesthesia per the anesthesia team. The left lower extremity was scrubbed, prepped, and draped in the usual aseptic fashion. A time out was performed and the patient was properly identified and the surgical plan was confirmed. Pre operative antibiotics were not given until after the biopsy taken. Further attention was directed to the left ankle. There was noted to be a very small residual ulceration to the anterior ankle, measuring 1mm x 1mm, with healthy viable margins and granular base. Using a 15 scalpel blade a small linear longitudinal incision was made to the anterior lateral aspect of the ankle joint, medial to were the ulceration was located. Blunt dissection was completed down through the subcutaneous tissue layer to the anterior lateral ankle capsule, which was dissected to open up the ankle joint. Under the guidance of intra-operative fluoroscopy, and using the Jakob bone biopsy tray, 2 cylindrical pieces of bone were obtained from the nonunion site of the distal tibial plafond. The bone from the site was noted to be yellow, softer, and fibrotic consistent with a nonunion. These were sent to pathology and microbiology separately for further evaluation. There was no noted purulence, no visible abscess, no cellulitis present. Fluoroscopic images were saved and placed in patient's chart. The site was flushed out with copious amounts of normal saline solution. The skin was reapproximated using 3-0 Nylon. 0.25% Bupivacaine was given as a local nerve block around the surgical site and ankle for post operative pain control. A dressing was applied which consisted of Betadine soaked Adaptic, 4x4 gauze, Kerlix and seth bandage. The patient tolerated the above procedure well and the anesthesia well with no complications. He was transported from the operating room to the recovery room with vital signs stable and in good condition. Post operative instructions were reviewed with patient and his family today. Keep the dressing clean, dry and intact. Keep ankle protected in CAM Walker, and use crutches. A prescription for Vicodin 5mg/300mg 1 tab PO q 6 hours prn pain was provided for post operative pain control. He is to follow up within 1 week or sooner if needed. Grafts/Implants Used: None - Complications None 04/23/17 0938 <Electronically signed by Sergio Neil DPM> Date Sergio Neil DPM CC: No Primary Care Physician; Sergio Neil DPM Signed DISCHARGE INSTRUCTION Observed: 04/22/2017 Status: F Source: [place] 4:12 PM [facility] [place] [facility] Medical Records Department [address] [facility] [place] [address] Instructions for Home/Discharge Instructions 04/22/17 1610 MR#: [id number] Acct: [id number] Name: RED TRAN Rep #: [id number] : 1975 41 From: Sergio Neli DPM PCP: Care Physician, No Primary Status: REG [facility] Discharge Diet: Light diet - advance as tolerated Discharge Activity: May Not Drive Weight Bearing Status: Partial weight bearing - Use crutches and CAM Walker boot left ankle Keep extremity elevated above heart level: Left Leg - Keep left foot elevated for at least 50 minutes of every hour Call your doctor if your incision/area has: Continuous Slow Oozing, Sudden Increased Bleeding, Foul Smelling Discharge Call your doctor if you observe: Fever of 101 or Higher, Coldness, Increased Pain, Shortness of breath, Chest pain, Increased palpitations (irregular heartbeat), Calf discomfort, Uncontrolled pain Cleanse incision/area with: Do not get Incision Wet, Keep Dressing Clean AND Dry Allergies/Adverse Reactions: Allergies No Known Allergies Allergy (Verified 04/19/17 13:01) Medications to take at Discharge Hydrocodone Bitart/Apap 5-325 [Melvin 5/325] 1 - 2 tablet PO Q4H PRN PRN #20 tablet 01/29/17 Amoxicillin/Potassium Clav [Augmentin 875-125 Tablet] 1 tab PO BID 04/19/17 Hydrocodone/Acetaminophen [Vicodin 5-300 mg Tablet] 1 tab PO Q6H PRN PRN 3 Days #15 tab 04/22/17 The following prescriptions were given: Hydrocodone/Acetaminophen [Vicodin 5-300 mg Tablet] 1 tab PO Q6H PRN PRN 3 Days #15 tab PRN Reason: Pain Primary Care Physician: Care Physician,No Primary [Primary Care Provider] - Please Follow Up With: Sergio Neil DPM When: within 1 week or sooner if needed 04/22/17 1612 <Electronically signed by Sergio Neil DPM> Date Sergio Neil DPM CC: No Primary Care Physician Observed: 04/22/2017 Status: F Source: [place] CULTURE, DEEP WOUND 4:01 PM [facility] Order Date: 09/26/16 Comments: COLLECTED IN OR IN 1358 LEFT ANKLE BONE DISTAL TIB Gram Stain Gram Stain No White Blood Cells No organisms seen Wound Culture No growth aerobically. Cult, Anaerobic No anaerobic bacteria isolated. Performed By: #### M100.1500 #### [facility] [place], [address] Observed: 04/22/2017 Status: F Source: [place] CULTURE, DEEP WOUND 4:01 PM [facility] Order Date: 09/26/16 Comments: COLLECTED IN OR 1601 LEFT ANKLE BONE DISTAL TIBIA Gram Stain Gram Stain Rare White Blood Cells No organisms seen Wound Culture No growth aerobically. Cult, Anaerobic * This is an amended result. * A prior result that was reported as final has been changed. 04/25/17907 by MASON Previously reported as: FINAL * This is an amended result. * A prior result that was reported as final has been changed. 04/27/17 1307 by MASON Previously reported as: FINAL No growth in 5 days. Performed By: #### M100.1500 #### [facility] [address] [place], [address] [employer] Observed: 04/22/2017 Status: F Source: [place] CULT/SMEAR [id number] 4:01 PM [facility] Comments: COLLECTED IN OR 1601 LEFT ANKLE BONE DISTAL TIBIA AFB Smear/Fluor TESTING PERFORMED AT [facility]. ORIGINAL REPORT ON FILE IN LAB CONTAINS ADDITIONAL TEST SITE INFORMATION. Smear, Acid Fast Tissue Grinding Smear: Negative AFB Cult TESTING PERFORMED AT [facility]. ORIGINAL REPORT ON FILE IN LAB CONTAINS ADDITIONAL TEST SITE INFORMATION. Culture, Acid Fast NO ACID-FAST BACILLI ISOLATED AFTER 6 WEEKS. Performed By: #### M100.3880 #### [facility] [address] [place], [address] Observed: 04/22/2017 Status: F Source: [place] CULTURE, FUNGUS W/ 4:01 PM [facility] [id number] [facility]POSITORY Comments: COLLECTED IN OR 1601 LEFT ANKLE BONE DISTAL TIBIA Is this test to exclude patient from TB Isolation? Pablo [id number] TESTING PERFORMED AT [facility]. ORIGINAL REPORT ON FILE IN LAB CONTAINS ADDITIONAL TEST SITE INFORMATION. CUF No yeast or mold isolated after [address] [facility]. ORIGINAL REPORT ON FILE IN LAB CONTAINS ADDITIONAL TEST SITE INFORMATION. Fungus Stain No yeast or mold observed. Performed By: #### M600.1900 #### [facility] [address] [place], [address] [employer] Observed: 04/22/2017 Status: F Source: [place] CULT/SMEAR [id number] 4:01 PM [facility] Comments: COLLECTED IN ON 1358 LEFT ANKLE BONE DIATAL TIBIA AFB Smear/Fluor [facility]. ORIGINAL REPORT ON FILE IN LAB CONTAINS ADDITIONAL TEST SITE INFORMATION. Smear, Acid Fast Tissue Grinding Smear: Negative AFB Cult TESTING PERFORMED AT [facility]. ORIGINAL REPORT ON FILE IN LAB CONTAINS ADDITIONAL TEST SITE INFORMATION. Culture, Acid Fast NO ACID-FAST BACILLI ISOLATED AFTER 6 WEEKS. Performed By: #### M100.3880 #### [facility] [address] [place], [place] [address]gene[place], [address] Observed: 04/22/2017 Status: F Source: NANCY RUANO W/ 4:01 [facility] [id number] REPOSITORY Comments: COLLECTED IN OR 1358 LEFT ANKLE BONE DISTAL TIBIA Is this test to exclude patient from TB Isolation? Pablo Mcknight,[id number] TESTING [facility]. ORIGINAL REPORT ON FILE IN LAB CONTAINS ADDITIONAL TEST SITE INFORMATION. CUF No yeast or mold isolated after [address] TESTING PERFORMED AT [facility]. ORIGINAL REPORT ON FILE IN LAB CONTAINS ADDITIONAL TEST SITE INFORMATION. Fungus Stain No yeast or mold observed. Performed By: #### M600.1900 #### [facility] [address] [place], [address] CBC W/DIFF, AUTOMATED Collected: 04/22/2017 Status: F Source: [place] 2:10 PM [facility] [place] TYPE CODE TESTS RESULT OUT OF RANGE REFERENCE UNITS LAB L100.1000 4.4-11.0 K/mm3 Normal WBC 6.4 LAB L100.1200 4.6-6.2 M/mm3 Low RBC 4.54 LAB L100.1300 13.0-16.5 g/dl Normal HGB 14.7 LAB L100.1400 40-54 % Normal HCT 41.0 LAB L100.1500 80-94 fL Normal MCV 90.3 LAB L100.1600 27.0-32.0 pg High MCH 32.4 LAB L100.1700 32-36 g/gl Normal MCHC 35.9 LAB L100.1810 11.6-14.6 % Normal RDW CV 13.4 LAB L100.1820 35.1-43.9 fl High RDW SD 44.0 LAB L100.1900 150-450 K/mm3 Normal PLT 181 LAB L100.2000 6.2-12.0 fl Normal MPV 10.6 LAB L100.2100 47-70 % Normal NEUT% 51.9 LAB L100.2200 19-41 % Normal LY% 37.5 LAB L100.2300 0-10 % Normal MONO% 9.5 LAB L100.2400 0-5 % Normal EO% 0.6 LAB L100.2500 0-1 % Normal BASO% 0.2 LAB L100.2550 0.0-0.9 % Normal IM GRAN % 0.300 Result Comment: IG% - Immature Granulocytes (promyelocytes, myelocytes and metamyelocytes) > 1% indicates that a LEFT SHIFT is Present. LAB L100.2620 2.0-7.7 X10 3/uL Normal Absolute Neut 3.3 LAB L100.2720 0.83-4.51 X10 3/ul Normal Absolute Lymph 2.41 Performed By: #### L100.0100 #### [facility] [address] [place], [address] COMPREHENSIVE METABOLIC Collected: 04/22/2017 Status: F Source: [place] [facility] 2:10 PM [facility] TYPE CODE TESTS RESULT OUT OF RANGE REFERENCE UNITS LAB L501.0100 74-106 mg/dL Normal GLU 94 Result Comment: Please note revised GLUCOSE reference range effective 2017. LAB L501.1000 7-18 mg/dL Normal BUN 14 LAB L501.1100 0.70-1.30 mg/dL Normal CREAT,SERUM 0.98 Result Comment: The validity of the calculated GFR AND GFRAA in patients over 70 years has not been determined. Clinical correlation is essential. LAB L501.1110 >60 mL/min Normal EST GFR 90 Result Comment: Non- GFR Calc LAB L501.1115 >60 mL/min Normal EST GFR - AA 108 Result Comment: GFR Calc LAB L501.1255 ml/min Normal Estimated CRCL 96.23 LAB L501.1300 10-20 RATIO Normal BUN/CRE 14.3 LAB L501.1500 6.4-8. g/dL Normal 2 T PROT 7.3 LAB L501.1800 3.2-5. g/dL Normal 0 ALB 3.8 LAB L501.1950 2.2-4. g/dL Normal 2 GLOB 3.5 LAB L501.2000 0.9-2. RATIO Normal 4 A/G 1.1 LAB L501.2200 8.5-10 mg/dL Low .1 CA 8.4 LAB L501.4100 15-37 U/L Normal AST 17 LAB L501.4305 45-117 U/L Normal ALK P 90 LAB L501.4405 16-61 U/L Normal ALT 18 Result Comment: Please note revised ALT reference range effective 2017. LAB L501.4600 0.20-1.00 mg/dL Normal T BILI 0.70 LAB L501.5300 136-145 mmol/L Normal NA 140 LAB L501.5600 3.5-5.1 mmol/L Low K 3.2 LAB L501.5900 98-107 mmol/L Normal CL 106 LAB L501.6100 21.0-32.0 mmol/L Normal CO2 26.0 LAB L501.6200 5-15 Normal GAP 8 Performed By: #### L500.4050 #### [facility] [address] [place], [address] BONE (BIOPSY OR PATH Observed: 04/22/2017 Status: F Source: [place] FX) 2:00 PM [facility] [place] Patient: RED TRAN : 1975 (41/M) Acct Num: [id number] Phys: Rashaad SORIA,Sergio Unit Num: [id number] Loc: [facility] Specimen: [id number] Received: 04/23/1739 Spec Type: Bone TISSUES TISSUES: Tibia, NOS COMMENT Case has been reviewed in consultation with Dr. Cardozo who concurs with the above diagnosis. IDC:KATE GROSS DESCRIPTION Received in fixative is one container labeled with the patient's name and designated left ankle bone distal tibia. The specimen consists of multiple fragments of bone that in aggregate measure 1.5 x 1 x 0.3 cm. The entire specimen is submitted in one cassette after decalcification. / SJ:fabrice 04/23/17 TC:5 CPT: 44031, 52965 HEADER OPERATION: Bone biopsy, ankle PRE-OP DIAGNOSIS: Nonunion left ankle TISSUE SUBMITTED: Left ankle bone distal tibia MICROSCOPIC DESCRIPTION Slides are reviewed. MICROSCOPIC DIAGNOSIS Left distal tibia/ankle bone, biopsy: Bone with osteonecrosis. Fibrous tissue with reactive change. AM:fabrice 04/29/17 Signed Serafin Nowak 04/29/17 <signature on file> Performed By: #### PBONBX #### [facility] [address] [place], [place], [address] ANKLE 2 VIEWS Observed: 04/21/2017 Status: F Source: [place] 11:51 PM [facility] REPOSITORY [facility] Imaging Services [address] [place] [address] Ankle 2 Views MR#: [id number] Acct: [id number] Name: RED TRAN Rep #: [id number] : 1975 M 41 From: [place] Blackwell MD PCP: Care Physician, No Primary Status: [facility] Study: Ankle 2 Views Date of Exam: 04/22/17 Exam# [id number] Ordering Dr: Sergio Neil DPM STUDY: X-RAY - LEFT ANKLE REASON FOR EXAM: Male, 41 years old. Bone biopsy and also debridement. TECHNIQUE: 3 cone-down view(s) of the ankle were obtained intraoperatively. COMPARISON: None. FINDINGS: A metallic probe is seen in the distal portion of the tibia. RAD/Ankle 2 Views IMPRESSION: Fluoroscopic imaging provided for bone biopsy and also debridement. Electronically Signed: [place] Blackwell MD at 9:13 EST Tel [phone], Service support , CC: No Primary Care Physician; Sergio Neil DPM Sleeve Setter: Signed Observed: 04/09/2017 Status: F Source: [place] CULTURE, WOUND 1:10 PM [facility] REPOSITORY Comments: LEFT ANKLE/ SUPERFICIAL Gram Stain Gram Stain 2+ Red Blood Cells 1+ White Blood Cells No organisms seen Wound Culture Possible skin contamination, further Identification and sensitivity will be performed only by physician's request. ORGANISM 1: Coag Negative Staph Amount Growth Very Rare ORGANISM 2: Coag Negative Staph Amount Growth Very Rare Performed By: #### M100.1400 #### [facility] [address] [place], [address] Observed: 04/09/2017 Status: F Source: [place] CULTURE, WOUND 1:05 PM [facility] Comments: LEFT ANKLE/ DEEP Gram Stain Gram Stain 4+ Red Blood Cells Very Rare White Blood Cells No organisms seen Wound Culture No growth aerobically. Performed By: #### M100.1400 #### [facility] [address] [place], [place], [address] EXTREMITY LOWER Observed: 03/19/2017 Status: F Source: [place] WITHOUT CONTRA 4:09 PM [facility] REPOSITORY [facility] Imaging Services [address] [place] [address] Extremity Lower without Contra MR#: [id number] Acct: [id number] Name: RED TRAN Rep #: [id number] : 1975 M 41 From: [place] Blackwell MD PCP: Care Physician, No Primary Status: REG CLI Study: Extremity Lower without Contra Date of Exam: 03/19/17 Exam# [id number] Ordering Dr: Sergio Neil DPKetan STUDY: CT LEFT ANKLE WITHOUT CONTRAST REASON FOR EXAM: Male, 41 years old. History of a tibial Pilon fracture. RADIATION DOSAGE (If Supplied By Facility): CTDIvol = ( 15.35 ) mGy, DLP = ( 581.41 ) mGycm TECHNIQUE: Thin section transaxial imaging of the ankle was obtained, with sagittal and coronal reconstructed images. Individualized dose optimization techniques were used for this CT. COMPARISON: Comparison is made with prior examination dated June 29, 2015. FINDINGS: With again, an intramedullary susan is seen in the distal fibula. The fracture through the distal shaft of the fibula is healed. This is unchanged. Once again, methacrylate cement is noted at the level of the distal tibial fracture. The fracture lines remain visible with mild distraction and slight angulation at the distal tibial fracture site. No bony callus formation is seen. Screw tracks are seen in the distal tibia and fibula in keeping with prior screw fixation. Normal tibiotalar articulation and talar dome. Normal talus, calcaneus, navicular and cuboid tarsal bones. Normal subtalar, talonavicular and calcaneocuboid articulations. Normal navicular-cuneiform, cuneiform tarsal bones and intercuneiform articulations. Normal tarsometatarsal articulations and visualized metatarsi. Diffuse soft tissue swelling overlying the ankle joint and hindfoot. CT/Extremity Lower without Contra IMPRESSION: Healed distal fibular fracture. Persistent visualization of the fracture lines of the distal tibial fracture with cement present. Diffuse soft tissue swelling. Electronically Signed: [place] Blackwell MD at 10:11 EST Tel [phone], Service support , CC: No Primary Care Physician; Sergio Neil DPM Sleeve Setter: Signed ALLERGIES ALLERGIES DATE TYPE / CODE NAME / CODE REACTION SEVERITY SOURCE 08/24/2017 Drug No Known Unknown [place] [facility] Allergy/4160 Allergies/F00 Hospital 20345(SNOMED [id number](RXNOR Repository CT) M) ENCOUNTERS ENCOUNTERS ADMIT/DISCHARGE ACCOUNT ADMITTING ENCOUNTER LOCATION SOURCE NUMBER CLASS 01/24/2018 [id number] Ambulatory [place] 0 [facility] ing:CT Repository 11/05/2017 [id number] Ambulatory [place] 0 [facility] ing:WC Repository 09/28/2017 [id number] Amb[place] 7 [facility] ing:RAD Repository 09/28/2017 [id number] Ambulatory [place] 9 [facility] ing:LAB.FUTUR Repository E 09/25/2017/ [id number] Ambulatory [place] 5 [facility] ing:WC Repository 09/11/2017/ [id number] Ambulatory [place] 0 [facility] ing:WC Repository 08/24/2017/ [id number] Emergency [place] 8 3 [facility] ing:ED Repository 08/21/2017/ [id number] Ambulatory [place] 3 [facility] ing:WC Repository 07/30/2017 [id number] Inpatient [facility] 3 Encounter [facility] g:H.SD Repository 07/15/2017 [id number] Ambulatory [place] 0 [facility] ing:CT Repository 06/29/2017/ [id number] [place], [place] 9 Sergio Encounter [facility] ing:SU7Jdan: Repository [id number]: 1 06/29/2017 [id number] [facility], Ambulatory BMSBuilding:B [place] 0 Sergio [facility] Repository 06/28/2017 [id number] [facility], Ambulatory BMSBuilding:B [place] 8 S[place] [facility] Repository 06/13/2017 [id number] Ambulatory [place] 7 [facility] ing:LABSPEC Repository 04/22/2017/ [id number] Ambulatory [place] 8 [facility] ing:SDC Repository 04/22/2017 [id number] Ambulatory BMSBuilding:W [place] 4 [facility] Repository 04/09/2017 [id number] Ambulatory [place] [facility] 4 [facility] ing:LABSPEC Repository 03/19/2017 [id number] Ambulatory [place] 2 [facility] ing:CT Repository PAYERS PAYERS ENCOUNTER GUARANTOR PAYER SUBSCRIBER SOURCE 01/24/2018 RED L Primary RED L [place] [id number] KAMAR Insurance:[place] [facility] [place] BPolicy [id number] [facility] 87118Oxc: (330) Number: Repository [phone] ) [id number] Date:2018-01-22 01/24/2018 Secondary RED L [place] Insurance:MEDICAIDPol INMANDOB: [facility] Number: [id number] Hospital [id number] Repository Date:2018-01-22 01/24/2018 Tertiary NOT GIVENUNK [place] Insurance:SELF PAY Community INSURANCEPolicy Hospital Number: Effective Repository Date:2018-01-22 11/05/2017 RED L Primary RED L [place] [id number] KAMAR Insurance:MEDICARE INMANDOB: [place] PART A [facility] [id number] Hospital 14489Tjm: (330) Number: Repository [phone] () [id number] Date:2017-08-06 11/05/2017 Secondary RED L [place] Insurance:MEDICAIDPol INMANDOB: [facility] icy Number: [id number] Hospital [id number] Repository Date:2017-08-06 11/05/2017 Tertiary NOT GIVENUNK [place] Insurance:SELF PAY [facility] Number: Effective Repository Date:2017-10-26 09/28/2017 RED L Primary RED L [place] [id number] KAMAR Insurance:MEDICARE INMANDOB: [place] PART A [facility] [id number] Hospital 29332Ahi: (330) Number: Repository [phone] () [id number] Date:2017-09-28 09/28/2017 Secondary RED L [place] Insurance:MEDICAIDPol INMANDOB: [facility] icy Number: [id number] Hospital [id number] Repository Date:2017-09-28 09/28/2017 Tertiary NOT GIVENUNK [place] Insurance:SELF PAY [facility] Number: Effective Repository Date:2017-09-28 09/28/2017 RED L Primary RED L [place] [id number] KAMAR Insurance:MEDICARE INMANDOB: [place] PART A [facility] [id number] [facility] 34439Ofv: (330) Number: Repository [phone] () [id number] Date:2017-09-28 09/28/2017 Secondary RED L [place] Insurance:MEDICAIDPol INMANDOB: [facility] icy Number: [id number] Hospital [id number] Repository Date:2017-09-28 09/28/2017 Tertiary NOT GIVENUNK [place] Insurance:SELF PAY [facility] Hospital Number: Effective Repository Date:2017-09-28 09/25/2017 RED L Primary RED L [place] [id number] KAMAR Insurance:MEDICARE INMANDOB: [place] PART A [facility] [id number] Hospital 22688Nbi: (330) Number: Repository [phone] () [id number] Date:2017-08-06 09/25/2017 Secondary RED L [place] Insurance:MEDICAIDPol INMANDOB: Community icy Number: [id number] Hospital [id number] Repository Date:2017-08-06 09/25/2017 Tertiary NOT GIVENUNK [place] Insurance:SELF PAY [facility] Number: Effective Repository Date:2017-09-25 09/11/2017 RED L Primary RED L [place] [id number] KAMAR Insurance:MEDICARE INMANDOB: [place] PART A [facility] [id number] Hospital 06578Syu: (330) Number: Repository [phone] () [id number] Date:2017-08-06 09/11/2017 Secondary RED L [place] Insurance:MEDICAIDPol INMANDOB: [facility] icy Number: [id number] Hospital [id number] Repository Date:2017-08-06 09/11/2017 Tertiary NOT GIVENUNK [place] Insurance:SELF PAY [facility] Number: Effective Repository Date:2017-08-25 08/24/2017 RED L Primary RED L [place] [id number] KAMAR Insurance:MEDICARE INMANDOB: [place] PART A [facility] [id number] Hospital 47606Vrv: (330) Number: Repository [phone] () [id number] Date:2017-08-24 08/24/2017 Secondary RED L [place] Insurance:MEDICAIDPol INMANDOB: Community icy Number: [id number] Hospital [id number] Repository Date:2017-08-24 08/24/2017 Tertiary NOT GIVENUNK [place] Insurance:SELF PAY [facility] Number: Effective Repository Date:2017-08-24 08/21/2017 RED L Primary RED L [place] [id number] KAMAR Insurance:MEDICARE INMANDOB: [place] A BPolicy [id number] Hospital 79805Twc: (330) Number: Repository [phone] () [id number] Date:2017-08-06 08/21/2017 Secondary RED L [place] Insurance:MEDICAIDPol INMANDOB: [facility] icy Number: [id number] Hospital [id number] Repository Date:2017-08-06 08/21/2017 Tertiary NOT GIVENUNK [place] Insurance:SELF PAY [facility] Number: Effective Repository Date:2017-08-06 07/30/2017 RED L Primary RED L [facility] [id number] KAMAR Insurance:MEDICARE[place] icy Number: Repository [id number]: 330 [id number] [phone] () Date:2017-05-26 [facility] [place] [address]TR: 07/30/2017 Secondary RED L [facility] Insurance[place] [facility]ository [id number] Date:[id number] [address]XF: 07/15/2017 RED L Primary RED L [place] [id number] KAMAR Insurance:MEDICARE INMANDOB: [place] A BPolicy [id number] Hospital 15331Pqf: (330) Number: Repository [phone] () [id number] Date:2017-07-15 07/15/2017 Secondary RED L [place] Insurance:MEDICAIDPol INMANDOB: [facility] icy Number: [id number] Hospital [id number] Repository Date:2017-07-15 07/15/2017 Tertiary NOT GIVENUNK [place] Insurance:SELF PAY [facility] Number: Effective Repository Date:2017-07-15 06/29/2017 RED L Primary RED L [place] [id number] KAMAR Insurance:MEDICARE INMANDOB: [place] [facility] [id number] Hospital 09935Djl: (330) Number: Repository [phone] () [id number] Date:2017-05-06 06/29/2017 Secondary RED L [place] Insurance:MEDICAIDPol INMANDOB: Community icy Number: [id number] Hospital [id number] Repository Date:2017-05-06 06/29/2017 Tertiary NOT GIVENUNK [place] Insurance:SELF PAY [facility] Number: Effective Repository Date:2017-05-06 06/29/2017 RED L Primary RED L [place] [id number] KAMAR Insurance:MEDICARE INMANDOB: [place] [facility] [id number] Hospital 431[address]Dny: (330) Number: Repository [phone] () [id number] Date:2017-05-06 06/29/2017 Secondary RED L [place] Insurance:MEDICAIDPol INMANDOB: [facility] icy Number: [id number] Hospital [id number] Repository Date:2017-05-06 06/29/2017 Tertiary NOT GIVENUNK [place] Insurance:SELF PAY [facility] Number: Effective Repository Date:2017-06-29 06/28/2017 RED L Primary RED L [place] [id number] KAMAR Insurance:MEDICARE INMANDOB: [place] [facility] [id number] Hospital 812[address]Liq: (330) Number: Repository [phone] () [id number] Date:2017-05-06 06/28/2017 Secondary RED L [place] Insurance:MEDICAIDPol INMANDOB: Community icy Number: [id number] Hospital [id number] Repository Date:2017-05-06 06/28/2017 Tertiary NOT GIVENUNK [place] Insurance:SELF PAY [facility] Number: Effective Repository Date:2017-06-28 06/13/2017 RED L Primary [place] L [place] [id number] KAMAR Insurance:MEDICARE INMANDOB: [place] BPolic [id number] Hospital [address]Cqj: (330) Number: Repository [phone] () [id number] Date:2017-06-13 06/13/2017 Secondary RED L [place] Insurance:MEDICAIDPol INMANDOB: [facility] Number: [id number] Hospital [id number] Repository Date:2017-06-13 06/13/2017 Tertiary NOT GIVENUNK [place] Insurance:SELF PAY [facility] Number: Effective Repository Date:2017-06-13 04/22/2017 Red L Primary Red L [place] [id number] KAMAR Insurance:CARESOURCEP [facility]: [id number] Hospital [address]Ded: 330 [id number] Repository [phone] () Date:2017-04-12 [address]ATTN: [place] [address]RP: 04/22/2017 Secondary NOT GIVENUNK [place] Insurance:SELF PAY [facility] Number: Effective Repository Date:2017-04-12 04/22/2017 RED L Primary RED L [place] [id number] KAMAR Insurance:CARESOURCEP INMANDOB: [facility] Number: [id number] Hospital [address]12[address]Kop: 330 [id number] Repository [phone] () Date:2017-04-12[address]ATTN: [place] [address]WB: 04/22/2017 Secondary NOT GIVENUNK [place] Insurance:SELF PAY [facility] Number: Effective Repository Date:2017-04-22 04/09/2017 Red L Primary Red L [place] [id number] KAMAR Insurance:CARESOURCEP [place] [facility] [place] Number: [id number] [facility] 234[address]Ttw: [phone]) [id number] Repository [phone] () Date:2017-04-09P [address]ATTN: [place] [address]DY: 04/09/2017 Secondary NOT GIVENUNK [place] Insurance:SELF PAY [facility] Number: Effective Repository Date:2017-04-09 03/19/2017 Red L Primary [place] [id number] Kam[place] Insurance[place]CARESOURCEP [place] [facility] [place]: [id number] Hospital [address]Oyh: [phone]) [id number] Repository [phone] () Date:2017-02-28[address]ATTN: [place] [address]NO: 03/19/2017 Secondary NOT GIVENUNK [place] Insurance:SELF PAY [facility] Number: Effective Repository Date:2017-02-28
== END ==
PROVIDERS: Family Provider Family Medicine; PCP Family Medicine; Referring Provider Podiatrist; Visit Provider Podiatrist
DX: S82.872K Displaced pilon fracture of left tibia, subsequent encounter for closed fracture with nonunion (principal)
CPT/HCPCS: 73700; 76377

== ENCOUNTER → 2018-05-06 14:19 | Outpatient (CLI) | payer MEDICAID, SELFPAY ==
[2018-05-06 15:30] LABS: Absolute Lymphocyte Count 1.83 X10^3/ul (0.83-4.51); Absolute Neutrophil Count 1.6 X10^3/uL (2.0-7.7); Basophil# 0.01 X10^3/uL; Basophil% 0.3 % (0-1); Eosinophil# 0.05 X10^3/uL; Eosinophils% 1.3 % (0-5); Hematocrit 43.6 % (40-54); Hemoglobin 14.7 g/dl (13.0-16.5); Lymphocyte # 1.83 X10^3/ul (4.0); Lymphocyte % 48.3 % (19-41); Mean Corp Hgb Conc 33.7 g/gl (32-36); Mean Corpuscular Hgb 31.7 pg (27.0-32.0); Mean Platelet Vol. 11.1 fl (6.2-12.0); Monocyte# 0.35 X10^3/uL; Monocyte% 9.2 % (0-10); Neutrophil # 1.55 X10^3/uL (2.7-7.7); Neutrophil % 40.9 % (47-70); Platelet Count 177 K/mm3 (150-450); RBC Distribution Width CV 13.4 % (11.6-14.6); RBC Distribution Width SD 44.4 fl (35.1-43.9); Red Blood Count 4.64 M/mm3 (4.6-6.2); White Blood Count 3.8 K/mm3 (4.4-11.0)
[2018-05-06 15:56] LABS: ALB/GLOB Ratio 1.2 RATIO (0.9-2.4); AST(SGOT) 17 U/L (15-37); Alanine Aminotransfer ALT/SGPT 20 U/L (16-61); Albumin, Serum 3.8 g/dL (3.2-5.0); Alkaline Phosphatase 79 U/L (45-117); Anion Gap 8 (5-15); BUN 12 mg/dL (7-18); BUN/Creat Ratio 10.2 RATIO (10-20); Calcium,Total 8.2 mg/dL (8.5-10.1); Chloride 108 mmol/L (98-107); Creatinine, Serum 1.18 mg/dL (0.70-1.30); EST Glomerular Filtration Rate 72 mL/min (>60); Est Glom Filt Rate - Afr Amer 87 mL/min (>60); Globulin 3.1 g/dL (2.2-4.2); Glucose 62 mg/dL (74-106); Protein, Total 6.9 g/dL (6.4-8.2); Sodium Level 141 mmol/L (136-145)
[2018-05-06 16:09] LABS: POSITIVE COUNT NO; POSITIVE DIFFERENTIAL NO; POSITIVE MORPHOLOGY NO
== END ==
PROVIDERS: Family Provider Family Medicine; PCP Family Medicine; Referring Provider Family Medicine; Visit Provider Family Medicine
DX: Z01.818 Encounter for other preprocedural examination (principal)
CPT/HCPCS: 36415; 80053; 85025

== ENCOUNTER 2018-05-30 08:37 | Day surgery (SDC) | payer MEDICARE, SELFPAY ==
[2018-05-30] VITALS (8 sets, daily range): BP systolic 113–126; BP diastolic 74–83; PULSE 59–77; RESP 16–18; TEMP 36.6–37.2; O2SAT 97–99; BMI 18.9
[2018-05-30] MEDS: Cefazolin 2 GM in 0.9% Normal Saline 100 ML IV (10:59)
[2018-05-30] MEDS: Bupivacaine Mpf 0.5% 30 ML VIAL (11:26)
--- NOTE | 2018-05-30 11:32 | DCINST_ITS ---
Discharge Diet: Light diet - advance as tolerated Discharge Activity: May Not Drive Weight Bearing Status: Weight bearing as tolerated - Keep left foot/ankle protected in CAM Walker when on foot Keep extremity elevated above heart level: Left Leg - Keep left foot elevated as much as possible Call your doctor if your incision/area has: Continuous Slow Oozing, Sudden Increased Bleeding, Foul Smelling Discharge Call your doctor if you observe: Fever of 101 or Higher, Coldness, Increased Pain, Shortness of breath, Chest pain, Increased palpitations (irregular heartbeat), Calf discomfort, Uncontrolled pain Cleanse incision/area with: Do not get Incision Wet, Keep Dressing Clean & Dry Allergies/Adverse Reactions: Allergies No Known Allergies Allergy (Verified 05/22/18 14:37) Medications to take at Discharge Cholecalciferol (VIT D3) [Vitamin D] 1,000 unit PO DAILY 05/22/18 Hydrocodone/Acetaminophen [Vicodin 5-300 mg Tablet] 1 tab PO Q6H PRN PRN 5 Days #20 tab 05/30/18 The following prescriptions were given: Hydrocodone/Acetaminophen [Vicodin 5-300 mg Tablet] 1 tab PO Q6H PRN PRN 5 Days #20 tab PRN Reason: Pain Primary Care Physician: Ya Cavazos MD [Primary Care Provider] - Test Results: Test results from this visit will be discussed in further detail at your follow- up appointment, if applicable. Please Follow Up With: Sergio Neil DPM When: within 1 week, sooner if needed
--- NOTE | 2018-05-30 11:35 | OP.PCM_ITS ---
Report of Operation Date of Procedure: 05/30/18 Pre-Operative Diagnosis: Painful/symptomatic screw left ankle Post-Operative Diagnosis: Same Surgery/Procedure Performed:: Removal of screw left ankle chief growth officer: yes - Dr. Ingrid Kumar Type of Anesthesia:: Local MAC Estimated Blood Loss (mL): <1mL Description of Procedure: Indications: This is a 42 year old gentleman who has a symptomatic prominent screw to the left anterior lateral ankle which is loosening and causing pain. He has opted for removal of this screw. The plan is to leave the rest of the hardware in. This was discussed with him in detail. Reviewed the possible benefits vs risks, goals, expectations and estimated healing time. He expressed understanding and agreement. The consent forms were reviewed with him and he freely signed them. No guarantees were given nor implied. Operative Procedure: The patient was brought back to the operating room and was place onto the operating room table in the supine position. The patient received 2 grams of IV Cefazolin for antibiotic prophylaxis. A time was out also preformed and the patient was properly identified and the surgical plan was confirmed. The patient received anesthesia per the anesthesia team. The right foot and ankle were cleansed, prepped, draped in the usual aseptic fashion. The screw head was easily palpated underneath the skin and was prominent at level of the anterior lateral ankle. A small linear longitudinal skin incision was made overlying the screw head at the level of the anterior lateral ankle. Careful dissection was completed down to the screw head. The screw was visualized and was removed in toto without complication. The site was flushed out with copious amounts of normal saline solution. The remaining tissue was healthy and viable. The skin was reapproximated using 4-0 Nylon. A dressing was applied which consisted of Betadine soaked Adaptic, 4x4 gauze, Kerlix and an Seth bandage. The patient tolerated the procedure well and the anesthesia well with no complications. The patient was transported from the operating room to the recovery room with vital signs stable and in good conditions. Post operative o rders were placed. The patient was discharged home with post operative instructions which were reviewed with him and his significant other who was with him today. Protected weightbearing left foot with use of CAM Walker boot, keep dressing clean, dry and intact. Keep right foot elevated. Vicodin was prescribed for post op pain control. He is to follow up with me in 1 week, sooner if needed. Post op left ankle xrays were obtained in the recovery room and confirmed screw removal without complication, no acute changes otherwise. Grafts/Implants Used: None - Complications None
--- NOTE | 2018-05-30 11:40 | RAD_ITS ---
STUDY: X-RAY - LEFT ANKLE REASON FOR EXAM: Male, 42 years old. Post TECHNIQUE: 3 view(s) of the ankle. COMPARISON: 09/28/2017 FINDINGS: Again noted are postsurgical changes from open reduction and internal fixation of previously seen distal tibial and distal fibular fractures. There is stable arthrodesis of the ankle joint. The hardware is intact and alignment is satisfactory. 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 There is no acute fracture or dislocation. RAD/Ankle min 3 Views IMPRESSION: Stable exam. Electronically Signed: Timur Mckeon, at 17:13 EDT Tel , Service support ,
== END 2018-05-30 12:45 | disposition home or self-care (01) ==
LOC: SDC 08:38 → AC 08:39
PROVIDERS: Family Provider Family Medicine; PCP Family Medicine; Referring Provider Podiatrist; Visit Provider Podiatrist
PROC: (CPT 20680; principal; 2018-05-30 09:45)
DX: T84.84XA Pain due to internal orthopedic prosthetic devices, implants and grafts, initial encounter (principal); I25.2 Old myocardial infarction; F12.10 Cannabis abuse, uncomplicated; F17.200 Nicotine dependence, unspecified, uncomplicated
CPT/HCPCS: 20680; 73610; J7120

== ENCOUNTER → 2019-03-13 09:57 | Outpatient (CLI) | payer MEDICARE, SELFPAY ==
[2018-05-30 08:57] VITALS: BMI 18.9
[2019-03-13 12:33] LABS: Absolute Lymphocyte Count 1.91 X10^3/uL (0.83-4.51); Absolute Neutrophil Count 2.2 X10^3/uL (2.0-7.7); Basophil# 0.03 X10^3/uL; Basophil% 0.7 % (0-1); Eosinophil# 0.03 X10^3/uL; Eosinophils% 0.7 % (0-5); Hematocrit 44.3 % (40-54); Hemoglobin 14.9 g/dL (13.0-16.5); Lymphocyte # 1.91 X10^3/ul (4.0); Mean Corp Hgb Conc 33.6 g/dL (32-36); Mean Corpuscular Hgb 31.1 pg (27.0-32.0); Mean Corpuscular Volume 92.5 fL (80-94); Mean Platelet Vol. 11.8 fl (6.2-12.0); Monocyte# 0.42 X10^3/uL; Monocyte% 9.2 % (0-10); NRBC Flagged by Analyzer 0 % (0-5); Neutrophil # 2.15 X10^3/uL (2.7-7.7); Neutrophil % 47.2 % (47-70); Platelet Count 180 K/mm3 (150-450); RBC Distribution Width CV 13.6 % (11.6-14.6); RBC Distribution Width SD 46.8 fl (35.1-43.9); Red Blood Count 4.79 M/mm3 (4.6-6.2); White Blood Count 4.6 K/mm3 (4.4-11.0)
[2019-03-13 13:04] LABS: ALB/GLOB Ratio 1.1 RATIO (0.9-2.4); AST(SGOT) 18 U/L (15-37); Alanine Aminotransfer ALT/SGPT 25 U/L (16-61); Albumin, Serum 3.7 g/dL (3.2-5.0); Alkaline Phosphatase 67 U/L (45-117); Anion Gap 6 (5-15); BUN 10 mg/dL (7-18); BUN/Creat Ratio 11.6 RATIO (10-20); Calcium,Total 8.7 mg/dL (8.5-10.1); Chloride 110 mmol/L (98-107); Creatinine, Serum 0.86 mg/dL (0.70-1.30); EST Glomerular Filtration Rate 104 mL/min (>60); Est Glom Filt Rate - Afr Amer 125 mL/min (>60); Globulin 3.5 g/dL (2.2-4.2); Glucose 80 mg/dL (74-106); Potassium 3.9 mmol/L (3.5-5.1); Protein, Total 7.2 g/dL (6.4-8.2); Sodium Level 140 mmol/L (136-145)
== END ==
PROVIDERS: PCP Family Medicine; Referring Provider Family Medicine; Visit Provider Family Medicine
DX: Z01.818 Encounter for other preprocedural examination (principal)
CPT/HCPCS: 36415; 80053; 85025

== ENCOUNTER 2019-03-20 12:33 | Day surgery (SDC) | payer MEDICARE, SELFPAY ==
[2018-05-30 08:57] VITALS: BMI 18.9
[2019-03-20] VITALS (7 sets, daily range): BP systolic 108–122; BP diastolic 70–81; PULSE 47–78; RESP 16; TEMP 36.2–37.5; O2SAT 92–100; BMI 19.4
[2019-03-20] MEDS: Lactated Ringers 1,000 ML 100 ML IV (13:03)
--- NOTE | 2019-03-20 14:00 | BON_PTH ---
PATIENT: JAKUB TRAN LOC: [facility] [place] U#:[id number] AGE/SX: 43/M ROOM: RE03/20/[address]: Dr. Sergio Neil DPM : 1975 BED: DIS: 03/20/2019 SPEC #: [id number] RECD: 03/20/19 16:07 STATUS: JASVIR REKimberly #: [id number] KHURRAM: 03/20/19 14:[address]: Sergio Neil DEPT: SURGICAL PATHOLOGY RECD BY: Belle Metcalf ENTERED: 03/23/19 11:52 SP TYPE: Bone OTHR DR: Dr. Ya Cavazos MD Tissues: Bone of foot, NOS Procedures: Decalcification bone/plaque Surgery Specimen Level III HEADER OPERATION: Removal/replace hardware, left ankle, removal of prominent bone PRE-OP DIAGNOSIS: Symptomatic hardware left ankle TISSUE SUBMITTED: Bone, fifth metatarsal MICROSCOPIC DIAGNOSIS Bone, fifth metatarsal: Pieces of bone and fibroconnective tissue with reactive changes. KATE:fabrice 03/26/19 MICROSCOPIC DESCRIPTION Slides are reviewed. GROSS DESCRIPTION Received in fixative is one container labeled with the patient's name and designated bone fifth metatarsal. The specimen consists of multiple fragments of bone that in aggregate measure 3 x 2.5 x 0.3 cm. The entire specimen is submitted in one cassette after decalcification. / KATE:fabrice 03/23/19 TC:5 CPT: 90860, 16134
--- NOTE | 2019-03-20 14:00 | RAD_ITS ---
STUDY: X-RAY - LEFT ANKLE REASON FOR EXAM: Male, 43 years old. REPLACEMENT OF HARDWARE TECHNIQUE: 3 C-arm view(s) of the ankle. 33 seconds fluoroscopy time COMPARISON: Numerous prior studies including 05/30/2018. FINDINGS: Limited kpyoe-zk-lxyu images of the ankle show grossly stable appearance of numerous screws, compression plate, and intramedullary susan. Several of the screws have findings consistent with loosening. Correlate with procedure note. Electronically Signed: Joseph Pichardo MD at 15:58 EST , Service support , RAD/Ankle min 3 Views
[2019-03-20] MEDS: Cefazolin 2 GM in 0.9% Normal Saline 100 ML IV (14:05)
--- NOTE | 2019-03-20 14:08 | DCINST_ITS ---
Discharge Diet: Light diet - advance as tolerated Discharge Activity: Use Crutches Weight Bearing Status: No weight bearing - No weightbearing on left foot Keep extremity elevated above heart level: Left Leg - Keep left foot elevated at all times, keep pressure off of incision sites Call your doctor if your incision/area has: Continuous Slow Oozing, Sudden Increased Bleeding, Foul Smelling Discharge Call your doctor if you observe: Fever of 101 or Higher, Shortness of breath, Chest pain, Calf discomfort, Uncontrolled pain Cleanse incision/area with: Do not get Incision Wet, Keep Dressing Clean & Dry Allergies/Adverse Reactions: Allergies No Known Allergies Allergy (Verified 03/13/19 14:18) Medications to take at Discharge Amoxicillin/Potassium Clav [Amox-Clav 875-125 mg Tablet] 1 ea PO DAILY 03/20/19 Oxycodone HCl/Acetaminophen [Percocet 5/325] 1 - 2 tab PO Q6H PRN PRN 3 Days #30 tab 03/20/19 The following prescriptions were given: Oxycodone HCl/Acetaminophen [Percocet 5/325] 1 - 2 tab PO Q6H PRN PRN 3 Days #30 tab PRN Reason: Pain Transmission Status: Pending to [facility] #30 Primary Care Physician: Ya Cavazos MD [Primary Care Provider] - Test Results: Test results from this visit will be discussed in further detail at your follow- up appointment, if applicable. Please Follow Up With: Sergio Neil DPM When: 1 week, sooner if needed
[2019-03-20] MEDS: Bupivacaine Mpf 0.5% 30 ML VIAL (15:25)
--- NOTE | 2019-03-20 15:33 | PCM.OPRPT ---
Report of Operation Date of Procedure: 03/20/19 Pre-Operative Diagnosis: Symptomatic hardware left ankle; prominent painful bone 5th metatarsal base left foot Post-Operative Diagnosis: Same Surgery/Procedure Performed:: Removal of screws and placement of new screws left ankle. Removal of prominent bone from left 5th metatarsal base scooter mechanic: yes - Dr. Bre[place] Servin Type of Anesthesia:: General Specimen's removed: Bone from left 5th metatarsal base sent to pathology Estimated Blood Loss (mL): 1mL Description of Procedure: Indications: This is a 43 year old gentleman who has a symptomatic prominent screw to the anterior tibial plafond which is painful and symptomatic. He also has painful prominent bone at level of the 5th metatarsal base. He has opted for removal of the prominent screws and placement of new screws, along with removal of prominent bone from the 5th metatarsal base. This was discussed with him in detail. Reviewed the possible benefits vs risks, goals, expectations and estimated healing time. He expressed understanding and agreement. The consent forms were reviewed with him and he freely signed them. No guarantees were given nor implied. Operative Procedure: The patient was brought back to the operating room and was place onto the operating room table in the supine position. The patient received 2 grams of IV Cefazolin for antibiotic prophylaxis. A time was out also preformed and the patient was properly identified and the surgical plan was confirmed. The patient received general anesthesia per the anesthesia team. A well padded thigh pneumatic tourniquet was placed to the left thigh. The left foot and ankle were cleansed, prepped, draped in the usual aseptic fashion. Further attention was directed to the left ankle and foot where there was prominent tips of 2 screws, as well as prominent bone of the 5th metatarsal base. The left foot was elevated for 3 minutes and the left thigh pneumatic tourniquet was inflated to 300mmHg. Screw removal and replacement: A linear longitudinal skin incision was made to the posterior ankle using a 15 blade. Careful dissection was completed down to the screw heads. The screws were visualized and were removed in toto without complication. They were replaced with small screws. The site was flushed out with copious amounts of normal saline solution. The remaining tissue was healthy and viable. The subcutaneous tissue was reapproximated using 3-0 Vicryl and the skin was reapproximated using 3-0 Nylon. Left 5th metatarsal base: A linear longitudinal skin incision was made overlying the lateral aspect of the 5th metatarsal base. Careful dissection was completed down to the insertion of the peroneus brevis tendon was was partially reflected off of the 5th metatarsal base, leaving the majority of the insertion point intact. The prominent bone was resection from the 5th metatarsal base using a sagittal saw. The bone was sent to pathology for further evaluation. The bone was healthy and viable, the remaining tissues were healthy and viable. A mini Arthrex suture fredis was placed to the base of the 5th metatarsal bone and sutured the portion of the detached peroneus brevis tendon down to proper tension. The site was flushed out with copious amounts of normal saline solution. The remaining tissue was healthy and viable. The subcutaneous tissue was reapproximated using 3-0 Vicryl and the skin was reapproximated using 3-0 Nylon. A total of 20mL of 0.5% Bupivacaine plain was given as a local nerve block around the surgical sites for post op pain control. The pneumatic tourniquet was deflated and there was immediate return of warmth and perfusion to the foot with CFT < 2 seconds to all toes. A dressing was applied which consisted of Betadine soaked Adaptic, 4x4 gauze, Kerlix and an Seth bandage. Of note intra operative fluoroscopy was used as needed to assist and confirm the above. The patient tolerated the procedure well and the anesthesia well with no complications. The patient was transported from the operating room to the recovery room with vital signs stable and in good conditions. Post operative orders were placed. The patient was discharged home with post operative instructions which were reviewed with him and his significant other who was with him today. No weightbearing left foot, keep dressing clean, dry and intact. Keep left foot elevated. Percocet was prescribed for post op pain control (reviewed OARRS). He is to follow up with me in 1 week, sooner if needed. Post op left ankle xrays were obtained in the recovery room and confirmed screw removal and replacement and removal of prominent bone from the 5th metatarsal base without complication, no acute changes otherwise. - Complications None
--- NOTE | 2019-03-20 15:51 | RAD_ITS ---
STUDY: X-RAY - LEFT ANKLE REASON FOR EXAM: Male, 43 years old. POST OP HARDWARE REMOVAL AND REPLACEMENT TECHNIQUE: 3 view(s) of the ankle. COMPARISON: 05/30/2018. FINDINGS: The patient status post surgical changes with fixation plates of the distal tibia, posterior talus and calcaneus. There is a fixation across the distal fibula with multiple traversing screws. There is deformity of the distal tibia and fibula. 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 There is diffuse osteoporosis. There is fusion of the subtalar joint. Otherwise normal visualized talus and calcaneus with no acute fracture. Mild multilevel narrowing of the visualized talonavicular, calcaneocuboid and tarsal articulations . There is a stent along the posterior distal calf. Nonspecific diffuse soft tissue swelling of the distal calf seen. RAD/Ankle min 3 Views IMPRESSION: Postoperative changes as described above, stable study in the interval. Electronically Signed: Michelle Reed MD at 0:57 EST , Service support ,
--- NOTE | 2019-03-20 15:51 | RAD_ITS ---
STUDY: X-RAY - LEFT FOOT CLINICAL: Male, 43 years old. POST OP HARDWARE REMOVAL AND REPLACEMENT TECHNIQUE: 3 view(s) of the foot. COMPARISON: 02/10/2016 FINDINGS: Normal talus, calcaneus, and tarsal bones. Status post tibiotalar and hindfoot arthrodesis with extensive hardware. Normal metatarsi. Normal metatarsophalangeal joint of the great toe. Normal tibial and fibular sesamoid bones. Normal interphalangeal joint of the great toe. Normal phalanges of the great toe. Normal second through fifth metatarsophalangeal joints. Normal interphalangeal joints and phalanges of the lesser toes. The soft tissue structures are unremarkable. RAD/Foot min 3 Views IMPRESSION: Interval tibiotalar and hindfoot arthrodesis. Electronically Signed: Calvin Blair MD at 8:02 EST Tel , Service support ,
== END 2019-03-20 16:54 | disposition home or self-care (01) ==
LOC: SDC 12:39 → AC 12:41
PROVIDERS: Family Provider Family Medicine; PCP Family Medicine; Referring Provider Podiatrist; Visit Provider Podiatrist
PROC: (CPT 20680; principal; 2019-03-20 13:40)
DX: M79.672 Pain in left foot (principal); Z98.1 Arthrodesis status; F17.200 Nicotine dependence, unspecified, uncomplicated; F12.10 Cannabis abuse, uncomplicated; F19.10 Other psychoactive substance abuse, uncomplicated
CPT/HCPCS: 01480; 20680; 73610; 73630; 76000; 88304; 88305; 88311; C1713; J7120; J2405

== ENCOUNTER 2021-07-16 13:11 | Emergency (ER) | payer MEDICARE, SELFPAY ==
[2021-07-16 13:12] VITALS: BP 141/94; PULSE 70; RESP 17; TEMP 36.6; O2SAT 100; BMI 19.5
--- NOTE | 2021-07-16 13:23 | EX.ED.GUMALE ---
HPI History of Present Illness Chief Complaint: Complaint Detail of Chief Complaint: Discharge from penis with concern for STD Informant: patient Narrative Narrative: Patient presents to the emergency department with complaint of discharge from his penis and concerned about STD. Patient thinks he may have gonorrhea. Patient states that he has had gonorrhea before. Patient complains of dysuria and drainage from his penis for about 4 days. Patient states that he had intercourse with his ex significant other and the condom broke. Patient states that the ex told him that she was tested recently for STDs and was negative. Patient denies any fevers. He denies abdominal pain. Denies other complaints. PFSH PFSH Home Medications amoxicillin-pot clavulanate 1 ea PO DAILY 03/20/19 [History Last Taken Unknown] Allergy/AdvReac Type Severity Reaction Status Date / Time No Known Allergies Allergy Verified 07/16/21 13:12 Social History Smoking Status: Current every day smoker ROS ROS ED Constitutional Constitutional ED: Reports systems reviewed and no addt'l complaints, except as documented; Denies body ache(s), change in weight or chills Eyes Eyes: Denies acute decrease in peripheral vision, change in vision, double vision or loss of vision ENT ENT ED: Reports none; Denies ear pain, lip swelling, loss taste/smell, neck pain, otalgia or sore throat Cardiovascular Cardiovascular: Reports none; Denies abdominal pain, chest pain with activity, leg edema, lightheadedness, palpitations, rapid heart rate or syncope Respiratory/Chest Respiratory/Chest: Reports none; Denies change in mental status, dry cough, dyspnea, hemoptysis, shortness of breath at rest or shortness of breath with exertion Gastrointestinal Gastrointestinal: Reports none; Denies abdominal pain, change in stool character, diarrhea, hematemesis, hematochezia, melena, rectal bleeding or vomiting Genitourinary Genitourinary ED: Reports none, dysuria and other Details: Discharge from penis ; Denies abdominal discomfort, anuria, genital pain or polyuria Musculoskeletal Musculoskeletal: Reports none; Denies arthralgias, back pain, difficulty walking, extremity pain, muscle weakness or myalgias Integumentary Reports none; Denies abscess or rash Neurologic Neurologic: Reports none; Denies abnormal gait, confusion, focal weakness, frequent falls, headache(s), loss of vision, numbness, paresthesias, radicular pain, vertigo or weakness Psychiatric Psychiatric: Reports systems reviewed and no addt'l complaints, except as documented and none; Denies behavioral changes, confusion, difficulty concentrating, hallucinations, suicidal ideation, tactile hallucinations or visual hallucinations Endocrine Endocrinology: Denies none, cold intolerance, excessive sweating, fatigue or heat intolerance Hematologic/Lymphatic Hematologic/Lymphatic: Reports none; Denies anemia, easy bleeding or easy bruising Allergic/Immunologic Allergic/Immunologic ED: Denies as per HPI, none, lip swelling, mouth swelling, throat swelling, tongue swelling or hives EXAM Physical Exam Const Vital Signs: 07/16/21 13:12 Temperature 97.8 F Temperature Source Temporal Pulse Rate 70 Respiratory Rate 17 Blood Pressure 141/94 H Blood Pressure Mean 109 Pulse Ox 100 Oxygen Delivery Method Room Air Positive well nourished and well developed General Appearance ED: well developed and NAD HEENT Reports TM's clear and moist mucous membranes normocephalic and atraumatic; Negative for trauma or tenderness Tympanic Membrane ED: Yes TM's clear Eyes PERRL and EOMs intact bilaterally General Eye ED: Negative for pale conjunctiva or scleral icterus Neck no lymphadenopathy, supple and no JVD General: Negative for tenderness Chest Wall inspection of chest normal and palpation of chest normal Chest: Negative for tenderness Resp normal respiratory effort and clear to auscultation bilaterally Effort and Inspection: Negative for respiratory distress or pain with movement Auscultation: Negative for rhonchi, wheezes or diminished lung sounds Cardio regular rate, regular rhythm, S1 normal heart sound, S2 normal heart sound and no murmurs Peripheral Pulses: pulses 2+ throughout GI normal to inspection, nondistended, normoactive bowel sounds, soft to palpation, non-tender, non-distended and no masses Narrative: Uncircumcised male. Patient does have milky white discharge from penis on exam. Back/Spine no CVA tenderness and no thoracic nor lumbar tenderness Extremity normal to inspection General Extremety ED: Negative for edema General Extremity: Negative for edema Neuro oriented x3, CN's II-XII intact bilaterally, no sensory deficits noted and gait normal Sensorium / Orientation: awake, alert, oriented to person, oriented to place and oriented to time Motor Exam: strength 5/5 throughout and strength abnormal Psych mental status grossly normal Skin no rashes or lesions noted and no wounds MDM MDM MDM Narrative Medical decision making narrative: Patient will have urine sent for gonorrhea and chlamydia. I have high index of suspicion for gonorrhea. Patient will be treated with Rocephin IM as well as Zithromax p.o. Patient advised to follow-up with his primary care physician in 3 to 5 days to get his culture results. Discharge Plan Triage Chief Complaint: Complaint ED Provider: Maria Alejandra Grider Dx/Rx/DC Orders Clinical Impression: Urethritis Instructions: ED Urethritis Infec Vs Inflam ..., ED GC Male Prescriptions: No Action amoxicillin-pot clavulanate 1 EACH tablet 1 ea PO DAILY RF: 0 Primary Care Provider: Ya Cavazos Referrals: Ya Cavazos MD [Primary Care Provider] - 3-5 Days Disposition Disposition: Home, Self Care
[2021-07-16] MEDS: Azithromycin 250 MG Tablet 1000 MG PO (13:35)
[2021-07-16] MEDS: Ceftriaxone 500 MG Vial 250 MG IM (13:56)
--- NOTE | 2021-07-16 13:58 | ED.RN ---
Patient states he did not want to wait to see if medication gave him a reaction. Informed that he may have some tenderness, and bruising at injection site. Patient informed to also follow up with PCP. No further questions. Ambulates independently
[2021-07-16 15:27] LABS: Neisserai gonorrhoeae by PCR Positive (Negative); Probe Check PASS
[2021-07-16 15:33] LABS: Chlamydia Trachomatis by PCR POSITIVE (Negative)
== END 2021-07-16 14:00 | disposition home or self-care (01) ==
PROVIDERS: Emergency Provider Emergency Medicine; PCP Family Medicine; Visit Provider Emergency Medicine
DX: N34.2 Other urethritis (principal); F17.200 Nicotine dependence, unspecified, uncomplicated; Z20.2 Contact with and (suspected) exposure to infections with a predominantly sexual mode of transmission
CPT/HCPCS: 87491; 87591; 96372; 99282

== ENCOUNTER 2023-08-14 13:04 | Emergency (ER) | payer SELFPAY ==
[2023-08-14 13:07] VITALS: BP 157/91; PULSE 104; RESP 14; TEMP 36.6; O2SAT 99; BMI 19.3
--- NOTE | 2023-08-14 14:32 | ED.VIS.LOWEX ---
HPI History of Present Illness Chief Complaint: Lower Extremity Injury Narrative Narrative: 48-year-old male past medical history of reconstructive surgery on his left foot secondary to trauma presents with pain and swelling in his medial calcaneal area he states it has been like that for 2 weeks. Worse when he walks and stands. He denies any fevers or chills, no chest pain or shortness of breath. He has a callus on his left lateral heel and foot because he has been trying to avoid the pain that he has medially. Not so bad that he also has pain and swelling along the fifth metatarsal. PFSH PFSH Home Medications ?Medication ?Instructions ?Recorded ?Last Taken ?Type amoxicillin 875 mg-potassium 1 ea PO DAILY 03/20/19 Unknown History clavulanate 125 mg tablet Allergy/AdvReac Type Severity Reaction Status Date / Time No Known Allergies Allergy Verified 08/14/23 13:09 Social History Smoking Status: Current every day smoker tobacco type: cigarettes ROS ROS ED ROS Narrative Left-sided foot pain with medial swelling. Mild tenderness to palpation left fifth metatarsal. Positive callus left lateral foot/heel. Well-healed scars over left foot. EXAM Physical Exam Const Vital Signs: 08/14/23 13:07 08/14/23 15:05 08/14/23 17:00 Temperature 98 F Temperature Source Temporal Pulse Rate 104 H 78 88 Respiratory Rate 14 14 17 Blood Pressure 157/91 H 156/98 H Blood Pressure Mean 113 117 Pulse Ox 99 98 99 Oxygen Delivery Method Room Air Room Air Room Air MDM MDM MDM Narrative Medical decision making narrative: In the differential diagnosis would be hematoma versus abscess versus blister of skin. I will start with x-rays of the left foot. Foot x-rays interpreted by myself independently show postsurgical changes, but no acute fracture. I reviewed the radiology report which confirms my independent interpretation. I discussed patient with Dr. 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 He would like the RN to Doppler the area to see if there is a sound of blood flow as this may be more of an aneurysmal type symptom of a blood vessel. This was negative for any pulsatile noise. On palpation, I did not feel any thrill as well. In further discussion with Dr. Neil, he would like CTA of the left ankle performed. I then obtain blood work and reviewed it. He has normal white count of 5.3 so I doubt that this is cellulitic or abscess in nature. Hemoglobin normal at 13.7. BUN low at 6 with creatinine 0.82. Chloride slightly elevated at 111 which I think is nonspecific. Additionally, Dr. Juarez wanted dedicated ankle x-rays as well. On my interpretation of his ankle x-rays and 3 views there is no evidence of an acute fracture, and postsurgical changes. I reviewed the radiology report which comments on chronic nonunion versus chronic osteomyelitis. I reviewed the radiology report of the CTA. This does not appear to be an aneurysmal type of lesion. Rather, there is noted edema more consistent with continuous motion of the nonunion and motion. I do not think this is cellulitis on the clinical correlation. I then rediscussed the patient with Dr. Juarez. Patient will be placed in a well-padded Seth wrap, and given a walking boot. He will follow-up with podiatry within the next week. Patient is agreeable to the plan. Disposition is discharged home in stable condition. History & Record Review Discussion w/independent historian: Patient Lab Data Attestation: I reviewed the patient's lab results. Labs: Laboratory Results - last 24 hr 08/14/23 16:16 WBC 5.3 RBC 4.32 L Hgb 13.7 Hct 40.6 MCV 94.0 MCH 31.7 MCHC 33.7 RDW Std Deviation 47.0 H RDW Coeff of Giuliano 13.6 Plt Count 198 MPV 10.6 Immature Gran % (Auto) 0.200 Neut % (Auto) 48.2 Lymph % (Auto) 42.3 H [place] % (Auto) 6.6 Eos % (Auto) 2.1 Baso % (Auto) 0.6 Absolute Neuts (auto) 2.6 Absolute Lymphs (auto) 2.25 Nucleated RBC % 0 Sodium 141 Potassium 3.6 Chloride 111 H Carbon Dioxide 31.0 Anion Gap -1 L BUN 6 L Creatinine 0.82 Estim Creat Clear Calc 105.03 Est GFR (MDRD) Af Amer 130 Est GFR (MDRD) Non-Af 108 BUN/Creatinine Ratio 7.4 L Glucose 85 Calcium 8.6 Radiography Diagnostic Testing: Clinical Impression(s) from Imaging Studies Foot X-Ray 08/14/23 14:42 IMPRESSION: Status post arthrodesis of the ankle joint. Demineralization of the visualized metatarsals as well as the phalanges and tarsal bones. 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 Diffuse progression of lucency surrounding the fixation screws and arthrodesis compression screw tips in the region of the nonunion is compatible with chronic motion and loosening. Osseous infection is thought less likely. Diffuse ankle edema possibly secondary to inflammation from nonunion and motion. Cellulitis is difficult to completely excluded. Correlate with exam. Findings concerning for occlusion of posterior tibial stent with posterior tibial flow reconstituting distal to the stent. Beam hardening artifact from the stent may be limited visualization of trace residual flow through the stent. Electronically Signed: Vamsi Casillas MD at 18:21 EDT , Ankle X-Ray 08/14/23 16:10 IMPRESSION: No definite change. Extensive abnormalities of the distal fibula and tibia suspicious for chronic nonunion and possible chronic osteomyelitis. Electronically Signed: Joseph Pichardo MD at 16:39 EDT , Management Discussion w/another healthcare provider: Resistor Inspector (Dr. 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 Follow-up with Dr. Neil either tomorrow or early next week. Print Language: Hungarian Disposition Disposition: Home, Self Care
--- NOTE | 2023-08-14 14:42 | RAD_ITS ---
STUDY: X-RAY - LEFT FOOT CLINICAL: Male, 48 years old. Pain. No known injury. TECHNIQUE: 3 view(s) of the foot. COMPARISON: Comparison is made with prior study dated March 20, 2019. FINDINGS: Normal talus, calcaneus, and tarsal bones. The patient is status post arthrodesis of the ankle joint. Normal visualized subtalar, talonavicular, calcaneocuboid, tarsal and tarsometatarsal articulations. There is demineralization of the metatarsi. There is degenerative arthrosis of the metatarsophalangeal joint of the hallux . Normal tibial and fibular sesamoid bones. Normal interphalangeal joint of the great toe. Normal phalanges of the great toe. Normal second through fifth metatarsophalangeal joints. Normal interphalangeal joints and phalanges of the lesser toes. The soft tissue structures are unremarkable. RAD/Foot min 3 Views IMPRESSION: Status post arthrodesis of the ankle joint. Demineralization of the visualized metatarsals as well as the phalanges and tarsal bones. Electronically Signed: Dakota Blackwell MD at 14:59 EDT ,
[2023-08-14 15:05] VITALS: PULSE 78; RESP 14; O2SAT 98
--- NOTE | 2023-08-14 16:02 | CT_ITS ---
STUDY: CTA OF THE LEFT LOWER EXTREMITY PATIENT DEMOGRAPHICS: Male, 48 years old. REASON FOR EXAM: ankle swelling TECHNIQUE: Axial CT angiography multi-detector data acquisition was obtained from the mid pelvis through the left lung following intravenous administration of IV 100mL Isovue-370. Axial images and MIP images were reconstructed from the axial data set. Post-processing of the angiographic images was performed, with multiplanar reformation and 3D reconstruction. The protocol utilizes one or more of the following dose reduction techniques: automated exposure control, adjustment of mA and/or kV according to patient size,and/or use of iterative reconstruction technique. RADIATION DOSAGE (If Supplied By Facility): CTDIvol = ( 9.14 ) mGy, DLP = ( 961.07 ) mGycm COMPARISON: Ankle radiograph August 14, 2023, August 19, 2019 Descriptors of Narrowing: None (0%) Mild (< 50%) Moderate (50-70%) Severe (70-90%) Subtotal/Total Occlusion (90-100%) Non-Evaluable (technically non-diagnostic) FINDINGS: Diffuse ankle edema without organized fluid collection or abscess. Gross progression of lucency surrounding calcaneal talar tibial arthrodesis compression screw cephalad tip as well as lucency surrounding the tips of the tibial fixation screws. No fracture. Persistent linear lucency between the distal tibial diaphysis and the fused calcaneus talus and distal tibial metaphysis concerning for nonunion. No periostitis or acute osseous erosion. Right external iliac artery: No significant narrowing along the imaged portion. Right internal iliac artery: No significant narrowing along the imaged portion. Right superficial femoral: No significant narrowing along the imaged portion. Left common iliac artery: No significant narrowing. Left external iliac artery: No significant narrowing. Left internal iliac artery: No significant narrowing. Left common femoral artery: No significant narrowing. Left profundus femoris: No significant narrowing. Left superficial femoral: No significant narrowing. Left popliteal artery: No significant narrowing. Left tibioperoneal trunk: No significant narrowing. Left anterior tibial artery: No significant narrowing. Left posterior tibial artery: Initially preserved, tapering distally with lack of flow just prior to vascular stent, reconstituting distal to the stent in the plantar medial foot. Left peroneal artery: No significant narrowing. Urinary bladder: Bilateral hydrocele.. 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 Diffuse progression of lucency surrounding the fixation screws and arthrodesis compression screw tips in the region of the nonunion is compatible with chronic motion and loosening. Osseous infection is thought less likely. Diffuse ankle edema possibly secondary to inflammation from nonunion and motion. Cellulitis is difficult to completely excluded. Correlate with exam. Findings concerning for occlusion of posterior tibial stent with posterior tibial flow reconstituting distal to the stent. Beam hardening artifact from the stent may be limited visualization of trace residual flow through the stent. Electronically Signed: Vamsi Casillas MD at 18:21 EDT ,
--- NOTE | 2023-08-14 16:10 | RAD_ITS ---
STUDY: X-RAY - LEFT ANKLE REASON FOR EXAM: Male, 48 years old. pain TECHNIQUE: 3 view(s) of the ankle. COMPARISON: Numerous prior studies including next most recent study of 03/20/2019. FINDINGS: No definite change. Again seen is ununited fracture of the distal tibia, extensive fixation hardware along the posterior tibia with screws into the talus and calcaneus, stable. Stable intramedullary susan through the distal fibula. Stable widening of the interosseous space. 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 Extensive sclerotic bone density involving the distal fibula and tibia raises the possibility of chronic osteomyelitis. RAD/Ankle min 3 Views IMPRESSION: No definite change. Extensive abnormalities of the distal fibula and tibia suspicious for chronic nonunion and possible chronic osteomyelitis. Electronically Signed: Joseph Pichardo MD at 16:39 EDT ,
[2023-08-14 16:42] LABS: Absolute Lymphocyte Count 2.25 X10^3/uL (0.83-4.51); Absolute Neutrophil Count 2.6 X10^3/uL (2.0-7.7); Basophil# 0.03 X10^3/uL; Basophil% 0.6 % (0-1); Eosinophil# 0.11 X10^3/uL; Eosinophils% 2.1 % (0-5); Hematocrit 40.6 % (40-54); Hemoglobin 13.7 g/dL (13.0-16.5); Lymphocyte # 2.25 X10^3/ul (0.83-4.51); Lymphocyte % 42.3 % (19-41); Mean Corp Hgb Conc 33.7 g/dL (32-36); Mean Corpuscular Hgb 31.7 pg (27.0-32.0); Mean Platelet Vol. 10.6 fl (6.2-12.0); Monocyte# 0.35 X10^3/uL; Monocyte% 6.6 % (0-10); NRBC Flagged by Analyzer 0 % (0-5); Neutrophil # 2.57 X10^3/uL (2.7-7.7); Neutrophil % 48.2 % (47-70); Platelet Count 198 K/mm3 (150-450); RBC Distribution Width CV 13.6 % (11.6-14.6); Red Blood Count 4.32 M/mm3 (4.6-6.2); White Blood Count 5.3 K/mm3 (4.4-11.0)
[2023-08-14 16:47] LABS: Anion Gap -1 (5-15); BUN 6 mg/dL (7-18); BUN/Creat Ratio 7.4 RATIO (10-20); Calcium,Total 8.6 mg/dL (8.5-10.1); Chloride 111 mmol/L (98-107); Creatinine, Serum 0.82 mg/dL (0.70-1.30); EST Glomerular Filtration Rate 108 mL/min (>60); Est Glom Filt Rate - Afr Amer 130 mL/min (>60); Estimated Creatinine Clearance 105.03 ml/min; Glucose 85 mg/dL (74-106); Potassium 3.6 mmol/L (3.5-5.1); Sodium Level 141 mmol/L (136-145)
[2023-08-14 17:00] VITALS: BP 156/98; PULSE 88; RESP 17; O2SAT 99
[2023-08-14 20:03] VITALS: BP 135/87; PULSE 68; RESP 15; TEMP 36.3; O2SAT 100
== END 2023-08-14 20:04 | disposition home or self-care (01) ==
PROVIDERS: Emergency Provider Emergency Medicine; PCP Family Medicine; Visit Provider Emergency Medicine
DX: M79.672 Pain in left foot (principal); S82.892K Other fracture of left lower leg, subsequent encounter for closed fracture with nonunion; F17.210 Nicotine dependence, cigarettes, uncomplicated; S92.902K Unspecified fracture of left foot, subsequent encounter for fracture with nonunion; X58.XXXA Exposure to other specified factors, initial encounter
CPT/HCPCS: 73610; 73630; 73706; 80048; 85025; 99283; Q9967; A4216

== ENCOUNTER 2024-08-31 10:27 | Outpatient (CLI) | payer MEDICAID, SELFPAY ==
[2024-08-31 11:31] LABS: Hematocrit 41.1 % (40-54); Hemoglobin 14.1 g/dL (13.0-16.5); Immature Granulocytes Count 0.010 X10^3/uL (0.0-0.0); Mean Corp Hgb Conc 34.3 g/dL (32-36); Mean Corpuscular Volume 91.1 fL (80-94); Mean Platelet Vol. 11.0 fl (6.2-12.0); NRBC Flagged by Analyzer 0 % (0-5); Platelet Count 170 K/mm3 (150-450); RBC Distribution Width CV 13.0 % (11.6-14.6); RBC Distribution Width SD 43.2 fl (35.1-43.9); Red Blood Count 4.51 M/mm3 (4.6-6.2); White Blood Count 5.1 K/mm3 (4.4-11.0)
[2024-08-31 12:34] LABS: AST(SGOT) 22 U/L (<=37); Alanine Aminotransfer ALT/SGPT 11 U/L (<=46); Albumin, Serum 3.9 g/dL (3.5-5.0); Alkaline Phosphatase 72 U/L (40-129); Anion Gap 11 (5-15); BUN 12 mg/dL (4-19); BUN/Creat Ratio 13.5 RATIO (10-20); CRP 10.40 mg/L (0.0-3.0); Calcium,Total 8.8 mg/dL (7.6-11.0); Carbon Dioxide 23.8 mmol/L (21.0-32.0); Chloride 107 mmol/L (98-108); Globulin 3.0 g/dL (2.2-4.2); Glucose 94 mg/dL (70-99); Potassium 3.7 mmol/L (3.3-5.1); Uric Acid 4.9 mg/dL (3.5-7.2)
--- NOTE | 2024-08-31 15:00 | FLU_PTH ---
PATIENT: JAKUB TRAN LOC: [facility] U#:[id number] AGE/SX: 49/M ROOM: RE08/31/[address]: Dr. Sergio Neil DPM : 1975 BED: DIS: 08/31/2024 SPEC #: [id number] RECD: 09/01/24 11:39 STATUS: JASVIR REQ #: [id number] KHURRAM: 08/31/24 15:[address]: Sergio Neil DEPT: CYTOLOGY RECD BY: Belle Metcalf ENTERED: 09/01/24 11:53 SP TYPE: Fluid OTHR DR: Dr. Ya Cavazos MD Tissues: A - Ankle joint, NOS Procedures: Special Stain Group II Surgery Specimen Level IV Cytospin Fluid HEADER OPERATION: Not noted PRE-OP DIAGNOSIS: Abscess fluid TISSUE SUBMITTED: A. Abscess fluid DIAGNOSIS CYTOLOGY Abundant acute inflammation. CYTOLOGY STUDY Slides are reviewed. CYTOLOGY GROSS A. Received is 5 ml of tannish red cloudy thick fluid labeled with the patient's name and and designated per the requisition as abscess fluid. Submitted for cytology and cell block preparation. CPT: 83436
[2024-08-31 21:52] LABS: Cytology, Body Fluid / CSF SEE PATHOLOGY REPORT
== END 2024-08-31 23:59 | disposition home or self-care (01) ==
LOC: LAB 10:30 → LABSPEC 09-01 09:27
PROVIDERS: PCP Family Medicine; Referring Provider Podiatrist; Visit Provider Podiatrist
DX: L02.91 Cutaneous abscess, unspecified (principal)
CPT/HCPCS: 36415; 80053; 84550; 85025; 85652; 86140; 87070; 87075; 87077; 87186; 87205; 88108; 88305; 88313

== ENCOUNTER → 2024-09-04 | Outpatient (CLI) | payer MEDICAID, SELFPAY ==
[2024-09-04 20:48] LABS: Source- Body Fluid SYNOVIAL
[2024-09-04 20:49] LABS: Body Fluid QC Type(s) BF3Q
[2024-09-05 00:28] LABS: CRYSTALS, BODY FLUID See PATH REV
== END | disposition home or self-care (01) ==
PROVIDERS: PCP Family Medicine; Referring Provider Podiatrist; Visit Provider Podiatrist
DX: L02.416 Cutaneous abscess of left lower limb (principal)
CPT/HCPCS: 87070; 87075; 87205; 89060

== ENCOUNTER → 2024-09-08 | Outpatient (CLI) | payer MEDICAID, SELFPAY ==
--- NOTE | 2024-09-08 14:26 | CT_ITS ---
PROCEDURE: EXTREMITY LOWER WITH CONTRAST 09/08/2024 REASON FOR EXAM: LEFT ANKLE PAIN/MASS History of prior ankle fusion.. Prior left ankle fracture with the open reduction internal fixation with infection. TECHNIQUE: EXTREMITY LOWER WITH CONTRAST Coronal and Sagittal reconstruction series were provided. CONTRAST: None One or more dose reduction techniques were used (e.g., Automated exposure control, adjustment of the mA and/or kV according to patient size, use of iterative reconstruction technique). RADIATION DOSE SUMMARY: CTDlvol: 19.84 mGy DLP: 665.7 mGycm COMPARISON: None FINDINGS: The patient is status post fusion of the tibial talar and talar calcaneal joints. Multiple screws and side plate fixation device is seen. There is evidence of bony destruction of the distal tibia as well as the talus. This may be secondary to chronic osteomyelitis. Soft Tissues: Diffuse soft tissue swelling. CT/Extremity Lower WITH Contrast IMPRESSION: Status post fusion of the talotibial joint as well as talocalcaneal joints with screws and plate fixation device. There is evidence of bony destruction with soft tissue swelling. Chronic osteomyelitis should be ruled out. Reading Location: [place] [id number]
--- NOTE | 2024-09-08 14:26 | CT_ITS ---
PROCEDURE: EXTREMITY LOWER WITH CONTRAST 09/08/2024 REASON FOR EXAM: LEFT ANKLE PAIN/MASS History of prior ankle fusion.. Prior left ankle fracture with the open reduction internal fixation with infection. TECHNIQUE: EXTREMITY LOWER WITH CONTRAST Coronal and Sagittal reconstruction series were provided. CONTRAST: None One or more dose reduction techniques were used (e.g., Automated exposure control, adjustment of the mA and/or kV according to patient size, use of iterative reconstruction technique). RADIATION DOSE SUMMARY: CTDlvol: 19.84 mGy DLP: 665.7 mGycm COMPARISON: None FINDINGS: The patient is status post fusion of the tibial talar and talar calcaneal joints. Multiple screws and side plate fixation device is seen. There is evidence of bony destruction of the distal tibia as well as the talus. This may be secondary to chronic osteomyelitis. Soft Tissues: Diffuse soft tissue swelling. CT/Extremity Lower WITH Contrast IMPRESSION: Status post fusion of the talotibial joint as well as talocalcaneal joints with screws and plate fixation device. There is evidence of bony destruction with soft tissue swelling. Chronic osteomyelitis should be ruled out. Reading Location: [place] [address]
== END | disposition home or self-care (01) ==
PROVIDERS: PCP Family Medicine; Referring Provider Podiatrist; Visit Provider Podiatrist
DX: M25.572 Pain in left ankle and joints of left foot (principal); M79.9 Soft tissue disorder, unspecified
CPT/HCPCS: 73701; Q9967

== ENCOUNTER → 2024-11-12 | Outpatient (CLI) | payer MEDICAID, SELFPAY ==
--- NOTE | 2024-11-12 07:59 | NM_ITS ---
PROCEDURE: BONE SCAN THREE PHASE 11/12/2024 REASON FOR EXAM: OSTEOMYELITIS likely present on the left. TECHNIQUE: Procedure Code: NMBOT Modality: NM Procedure: BONE SCAN THREE PHASE Blood flow, blood pool, and delayed phase imaging of the ankles and distal legs after radiopharmaceutical administration RADIOPHARMACEUTICAL: 25 mCi Technetium-99m MDP IV COMPARISON: CT examination of 09/08/2024. FINDINGS: Limited imaging of the contralateral (right) side demonstrates mild increased blood flow and blood pool uptake at the left 1st metatarsophalangeal joint, more focal and intense on the delayed imaging. This is most consistent with arthritic change; recommend clinical correlation. On the left, substantially increased blood flow is seen in the distal leg, ankle, and calcaneus, also showing significant increased uptake on blood pool images. Delayed images demonstrate more focal and intense uptake of the posterior calcaneus and distal tibia and fibula. These findings are concerning for the presence of OSTEOMYELITIS in these areas. NM/Bone Scan Three Phase IMPRESSION: 1. Findings highly concerning for the presence of osteomyelitis in the distal l eft tibia and fibula as well as the posterior calcaneus. 2. Additional findings as noted. Reading Location: [id number]
== END | disposition home or self-care (01) ==
PROVIDERS: Referring Provider Podiatrist; Visit Provider Podiatrist
DX: M86.372 Chronic multifocal osteomyelitis, left ankle and foot (principal)
CPT/HCPCS: 78315; A9503

== ENCOUNTER → 2024-12-08 | Outpatient (CLI) | payer MEDICAID, SELFPAY ==
--- NOTE | 2024-12-08 06:09 | NM_ITS ---
PROCEDURE: INFLAMMATORY PROCESS LIMITED REASON FOR EXAM: OSTEOMYELITIS LEFT ANKLE, chronic. Regional injury 2018. COMPARISON: Three-phase bone scan of 11/12/2024. TECHNIQUE: Procedure Code: NMINFPR,BOLTON Modality: NM Procedure: INFLAMMATORY PROCESS LIMITED. Images were obtained of the distal legs, ankles, and feet following intravenous administration of labeled autologous white blood cells. RADIOPHARMACEUTICAL: 15.5 mCi technetium 99 M Ceretec labeled autologous white blood cells, intravenous. FINDINGS: No abnormal uptake is seen in the right In the left posterior distal tibia and posterior talus, abnormal uptake is seen, consistent with the clinical history of chronic osteomyelitis. Questionable involvement of the posterior calcaneus, as well. NM/Inflammatory Process Limited IMPRESSION: In the left posterior distal tibia and posterior talus, abnormal uptake is seen , consistent with the clinical history of chronic osteomyelitis. Questionable involvement of the posterior calcaneus, as well. Reading Location: [id number]
== END | disposition home or self-care (01) ==
PROVIDERS: Referring Provider Podiatrist; Visit Provider Podiatrist
DX: M86.372 Chronic multifocal osteomyelitis, left ankle and foot (principal)
CPT/HCPCS: 78801; A9521

== ENCOUNTER 2025-01-29 09:57 | Day surgery (SDC) | payer MEDICAID, SELFPAY ==
--- NOTE | 2025-01-28 14:19 | PAT.ANESEVAL ---
Pre-Assessment Diagnosis/Proposed Procedure Planned Operative Procedure(s): (L) Bone biopsy with placement of antibiotic impregnated calcium sulfate. Anesthesia History Anesthesia History - quality compliance coordinator: Anesthesia History - quality compliance coordinator Hx Hospitalization No 01/28/25 10:10 Any Problems With Anesthesia No 01/28/25 10:10 Cholinesterase deficiency No 01/28/25 10:10 You/Your Family Experience No 01/28/25 10:10 fever (hyperthermia) with Relationship Recent Exposure to Contagious No 03/20/19 12:56 Disease Does patient have nerve No 01/28/25 10:10 stimulator Patient instructed to have device shut off --Does patient have Pacemaker or ICD? When Was Last Pacemaker Check QUESTION #4 FULL TEXT: You/Your Family Experience fever (hyperthermia) with Anesthesia Last Oral Intake Last Oral intake: Last Oral Intake NPO since Meds taken in AM with sips of water? Meds patient instructed to take am of surgery PONV PONV - quality compliance coordinator: PONV - quality compliance coordinator Female No 01/28/25 10:10 HX of Motion Sickness No 01/28/25 10:10 HX of N/V After Surgery No 01/28/25 10:10 Non-Smoker No 01/28/25 10:10 Duration of Surgery greater Yes 01/28/25 10:10 than 60 minutes Number of Risk Factors 1 01/28/25 10:10 PONV Score Low Risk 01/28/25 10:10 Height & Weight Height & Weight: Anesthesia: Height & Weight Height 6 ft 1 in 01/28/25 09:39 Weight: 66.224 kg 01/28/25 09:39 Respiratory Assessment Respiratory Assessment - quality compliance coordinator: Respiratory Tract Infection Hx - quality compliance coordinator Hx Respiratory Tract Infection No 01/28/25 10:10 STOP Sleep Apnea STOP Sleep Apnea - quality compliance coordinator: STOP Sleep Apnea - quality compliance coordinator Hx Hypertension No 01/28/25 10:10 Hx Sleep Apnea No 01/28/25 10:10 CPAP No 03/20/19 15:38 BIPAP No 03/13/19 14:20 Do you snore loudly (louder No 01/28/25 10:10 than talking or can be heard Do you often feel tired/ No 01/28/25 10:10 fatigued/ sleepy during daytime? Has anyone observed you stop No 01/28/25 10:10 breathing during sleep? STOP Results Negative 01/28/25 10:10 QUESTION #5 FULL TEXT : Do you snore loudly (louder than talking or can be heard through closed doors)? Tobacco Use History Tobacco Use History - quality compliance coordinator: Tobacco Use History - quality compliance coordinator Tobacco Use Smoking Status Current every day smoker 01/28/25 10:10 Hx Tobacco Use Yes 01/28/25 10:10 Years Smoking Packs Smoked per Day Smoking Cessation Date was within the last 15 years Hx Smoking Cessation Date Hx Smoking Cessation No 01/28/25 10:10 Counseling Hematologic Medial History Hematologic Hx - quality compliance coordinator: Hematologic Medical Hx - pediatric allergist Hx of Blood Transfusion No 01/28/25 10:10 Hx of Transfusion in last 3 No 01/28/25 10:10 Months Date of Last Transfusion (if within last 3 months) Ever experience any problems No 01/28/25 10:10 with transfusion(s)? Specify any problems Hx of Preganancy in last 3 N/A 01/28/25 10:10 Months Nurse Filling Out Transfusion JZOLLINGE 01/28/25 10:10 & Questions: Date: 01/28/25 01/28/25 10:10 Time: 10:12 01/28/25 10:10 Patient unable to answer at this time (ie. confused, unrespo /Reproduction History /Reproductive History - quality compliance coordinator: /Reproductive Hx- quality compliance coordinator Hx Now No 01/28/25 10:10 Gestational Age (in weeks): EDC: Hx Hx Para Hx Section SAB No 01/28/25 10:10 Does the father of the baby or his family experience fever w Father of the baby Malignant Hypertension history comment PFSH Medical History Wears glasses Marijuana use Open wound Gout Arthritis History of low potassium Hx of myocarditis Smoker Home Medications ?Medication ?Instructions ?Recorded ?Last Taken ?Type ibuprofen 200 mg tablet (Advil) 400 mg PO Q4H 01/28/25 Unknown History Allergy/AdvReac Type Severity Reaction Status Date / Time No Known Allergies Allergy Verified 01/28/25 09:56 Surgical History (Updated 01/28/25 @ 10:10 by Doris Roberts) Hx of foot surgery Social History Smoking Status: Current every day smoker tobacco type: cigars Audit: Pertinent Findings Pertinent Findings EKG Perinent findings: 01/19/2025. Sinus rhythm. Horizontal axis. RSR' in V2. Consult pertinent findings: 01/22/2025. 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 1. Cleared for surgery. High risk for surgical complications due to his extensive noncompliance history. 2. Long history of tobacco dependence. 3. Marijuana use. 4. Cocaine use-patient denies use for the past 5 years. Additional pertinent findings: 01/19/2025. Potassium was 3.2. Recommendation Anesthesia Recommendation Anesthesia recommendation: OPTIMIZED for anesthesia (Recheck potassium on arrival day of surgery.)
[2025-01-29] VITALS (11 sets, daily range): BP systolic 93–125; BP diastolic 60–83; PULSE 54–69; RESP 12–16; TEMP 36.2–36.6; O2SAT 96–100; BMI 18.3
--- NOTE | 2025-01-29 09:59 | PCM.PRE.AN2 ---
ASA Classification* ASA Classification ASA Classification: 2 Assessment & Plan Anesthesia* Anesthesia Assessment Anesthesia Assessment: Discussed sedation and/or anesthesia options, risks, benefits, and alternatives with patient/parents/legal guardian/POA. Questions invited. The patient/parents/legal guardian/POA seems to understand and agrees to proceed with anesthesia plan. Reviewed the physical assessment, medical history, allergy history and patient home medications list prior to surgery/procedure/anesthetic and documented any changes. Performed airway and anesthesia risk assessments. Anesthesia Type Anesthesia Type: General Anesthesia Focused Assessment* Airway Assessment Mouth opens: >3 cm Mallampati Score: II Labs Anesthesia Preop lab: CBC WBC, (4.4-11.0) 5.1 K/mm3 08/31/24, 10:34 RBC, (4.6-6.2) 4.51 M/mm3 L 08/31/24, 10:34 Hgb, (13.0-16.5) 14.1 g/dL 08/31/24, 10:34 Hct, (40-54) 41.1 % 08/31/24, 10:34 Plt Count, (150-450) 170 K/mm3 08/31/24, 10:34 CHEMISTRY Potassium, (3.3-5.1) 3.7 mmol/L 08/31/24, 10:34 Sodium, (133-145) 141 mmol/L 08/31/24, 10:34 Magnesium, (1.8-2.4) 2.2 mg/dL 08/08/15, 07:00 BUN, (4-19) 12 mg/dL 08/31/24, 10:34 Creatinine, (0.70-1.20) 0.89 mg/dL 08/31/24, 10:34 Glucose, (70-99) 94 mg/dL 08/31/24, 10:34 TSH, (0.358-3.74) 1.74 uIU/mL 02/06/16, 12:11 COAG PT, (11.7-14.9) 12.7 SECONDS 05/05/16, 07:27 Pre-Assessment Diagnosis/Proposed Procedure Planned Operative Procedure(s): (L) Bone biopsy with placement of antibiotic impregnated calcium sulfate. Anesthesia History Anesthesia History - account services manager: Anesthesia History - account services manager Hx Hospitalization No 01/28/25 10:10 Any Problems With Anesthesia No 01/28/25 10:10 Cholinesterase deficiency No 01/28/25 10:10 You/Your Family Experience No 01/28/25 10:10 fever (hyperthermia) with Relationship Recent Exposure to Contagious No 03/20/19 12:56 Disease Does patient have nerve No 01/28/25 10:10 stimulator Patient instructed to have device shut off --Does patient have Pacemaker or ICD? When Was Last Pacemaker Check QUESTION #4 FULL TEXT: You/Your Family Experience fever (hyperthermia) with Anesthesia Last Oral Intake Last Oral intake: Last Oral Intake NPO since Meds taken in AM with sips of water? Meds patient instructed to take am of surgery PONV PONV - account services manager: PONV - account services manager Female No 01/28/25 10:10 HX of Motion Sickness No 01/28/25 10:10 HX of N/V After Surgery No 01/28/25 10:10 Non-Smoker No 01/28/25 10:10 Duration of Surgery greater Yes 01/28/25 10:10 than 60 minutes Number of Risk Factors 1 01/28/25 10:10 PONV Score Low Risk 01/28/25 10:10 Height & Weight Height & Weight: Anesthesia: Height & Weight Height 6 ft 1 in 01/28/25 09:39 Weight: 66.224 kg 01/28/25 09:39 Respiratory Assessment Respiratory Assessment - account services manager: Respiratory Tract Infection Hx - account services manager Hx Respiratory Tract Infection No 01/28/25 10:10 STOP Sleep Apnea STOP Sleep Apnea - account services manager: STOP Sleep Apnea - account services manager Hx Hypertension No 01/28/25 10:10 Hx Sleep Apnea No 01/28/25 10:10 CPAP No 03/20/19 15:38 BIPAP No 03/13/19 14:20 Do you snore loudly (louder No 01/28/25 10:10 than talking or can be heard Do you often feel tired/ No 01/28/25 10:10 fatigued/ sleepy during daytime? Has anyone observed you stop No 01/28/25 10:10 breathing during sleep? STOP Results Negative 01/28/25 10:10 QUESTION #5 FULL TEXT : Do you snore loudly (louder than talking or can be heard through closed doors)? 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 Specify any problems Hx of Preganancy in last 3 N/A 01/28/25 10:10 Months Nurse Filling Out Transfusion JZOLLINGE 01/28/25 10:10 & Questions: Date: 01/28/25 01/28/25 10:10 Time: 10:12 01/28/25 10:10 Patient unable to answer at this time (ie. confused, unrespo /Reproduction History /Reproductive History - account services manager: /Reproductive Hx- account services manager Hx Now No 01/28/25 10:10 Gestational Age (in weeks): EDC: Hx Hx Para Hx Section SAB No 01/28/25 10:10 Does the father of the baby or his family experience fever w Father of the baby Malignant Hypertension history comment PFSH Medical History Wears glasses Marijuana use Open wound Gout Arthritis History of low potassium Hx of myocarditis Smoker Home Medications ?Medication ?Instructions ?Recorded ?Last Taken ?Type ibuprofen 200 mg tablet (Advil) 400 mg PO Q4H 01/28/25 Unknown History Allergy/AdvReac Type Severity Reaction Status Date / Time No Known Allergies Allergy Verified 01/28/25 09:56 Surgical History Hx of foot surgery Social History Smoking Status: Current every day smoker tobacco type: cigars Review of Systems (Anesthesia) ROS Narrative System reviewed and no additional complaints, except as documented.
[2025-01-29] MEDS: Lactated Ringers 1,000 ML 15 ML IV (10:35)
[2025-01-29 10:54] LABS: Potassium 3.6 mmol/L (3.3-5.1)
--- NOTE | 2025-01-29 11:30 | BONBX_PTH ---
PATIENT: JAKUB TRAN LOC: [facility] [place] U[place][id number] AGE/SX: 49/M ROOM: RE01/29/[address]: Dr. Sergio Neil DPM : 1975 BED: DIS: 01/29/2025 SPEC #: [id number] RECD: 01/29/25 16:13 STATUS: JASVIR FANNY #: [id number] KHURRAM: 01/29/25 11:[address]: Sergio Neil DEPT: SURGICAL PATHOLOGY RECD BY: Luz Mann ENTERED: 02/01/25 08:01 SP TYPE: Bone OTHR DR: No Primary Care Phys Tissues: A - Foot, NOS B - Ankle, NOS Procedures: Decalcification bone/plaque Surgery Specimen Level V HEADER OPERATION: Bone biopsy with placement of antibiotic impregnated calcium PRE-OP DIAGNOSIS: Osteomyelitis TISSUE SUBMITTED: A- Left foot bone biopsy, B- Bone of left ankle MICROSCOPIC DIAGNOSIS A. Bone, foot, left, biopsy: - Bone fragment with reactive/degenerative changes. - No significant inflammation observed. B. Bone, ankle, left, biopsy: - Bone fragments with reactive/degenerative changes. - No significant inflammation observed. MICROSCOPIC DESCRIPTION Slides are reviewed. GROSS DESCRIPTION Received in 2 formalin containers labeled with the patient's name and date of . Designated as: A. Left foot bone biopsy is a 0.8 x 0.6 x 0.3 cm sanabria-yellow irregular bone fragment. Entirely submitted in 1 cassette, following decalcification. B. Bone of left ankle-specimen 2 is a 1.1 x 0.7 x 0.3 cm aggregate of sanabria-red bone fragments. Entirely submitted in 1 cassette, following decalcification. MN 02/01/2025 CPT:92041b9,50773w9
[2025-01-29] MEDS: Lidocaine 1% (5 ml sdv) 5 ML Vial IV (11:35)
--- NOTE | 2025-01-29 12:00 | RAD_ITS ---
EXAM: XR Left Foot, 2 Views CLINICAL INDICATION: BONE BIOPSY WITH PLACEMENT OF ANTIBIOTIC IMPREGNATED CALCIUM SULF TECHNIQUE: Frontal and lateral views of the left foot. COMPARISON: No relevant prior studies available. FINDINGS: A total of 7 fluoroscopic images were obtained. Total radiation dose 0.9912 mGy. Total fluoroscopy time 57 seconds. RAD/Foot 2 Views IMPRESSION: Fluoroscopic images were obtained intraoperatively. Please refer to operative note for further details. Reading Location: [id number]
[2025-01-29] MEDS: fentaNYL 100 MCG/2 ML Ampul IV (12:18)
[2025-01-29] MEDS: Vancomycin IV 1,000 MG/20 ML Vial OPERA.SITE (12:30)
[2025-01-29] MEDS: Cefazolin 1 GM/5 ML Vial 2 GM IV (12:36)
--- NOTE | 2025-01-29 12:40 | PCM.OPRPT ---
Operative Report (Standard) Operative Information Date of Procedure: 01/29/25 Pre-Operative Diagnosis: Chronic osteomyelitis left ankle Abscess left hindfoot/ankle Post-Operative Diagnosis: Same Surgery/Procedure Performed: Bone biopsy with placement of antibiotic impregnated calcium sulfate, debridement of wound left hindfoot/ankle suede cleaner: Yes Supervisor Opening And Picking: Dr.D Rodriguez Tasks completed by assistant guest services manager: Closing and Retracting Type of Anesthesia: Local MAC RN Documented Start/Stop Times: Operation Date: 01/29/25 11:30 Case Time Into Pre-Op 01/29/25 10:05 Out of Pre-Op 01/29/25 11:30 Anesthesia Start 01/29/25 11:31 Into Room 01/29/25 11:31 Procedure Start 01/29/25 11:50 Procedure End 01/29/25 12:39 Anesthesia End 01/29/25 12:43 Out of Room 01/29/25 12:43 Into Recovery 01/29/25 12:46 Out of Recovery 01/29/25 14:01 Into Phase II Recovery 01/29/25 14:02 Out of Phase II 01/29/25 15:01 Procedure Start Time: 11:50 Procedure Stop Time: 12:39 Select all DRAINS/GRAFTS/IMPLANTS that apply: None (calcium sulfate) Estimated Blood Loss: 5mL Specimen collected: Yes Description of specimen(s) removed: 2 x bone left ankle sent to pathology and microbiology Culture swab of wound/abscess left hindfoot/ankle Description of surgery: Indications: Patient is a 49 year old gentleman with complex left ankle history. There are findings consistent with chronic osteomyelitis to left ankle and discussed procedure with him which he elected to proceed with. The consent form was reviewed with him and he freely signed it. Also of note there was a dime signed wound to the medial hindfoot/ankle on the left side with some purulent drainage, there was pain to the site, we discussed debridement of the wound, rationale of this, possible benefits vs risks, goals and expectations. He would like to proceed with debridement of wound today as well. He said this started from his shoe rubbing on it several days ago, he said he did not think it would be worth calling me because he figured he would be seeing me today for it. Patient presented with this mother today. Operative procedure: The patient was brought back to the operating room and was placed on the operating room table in the supine position. He was carefully secured to the operating room table with a safety belt around his waist. The patient reviewed MAC anesthesia per the anesthesia team. A well padded pneumatic tourniquet was applied around his left thigh. A timeout was performed and the patient was properly identified and surgical plan was confirmed. After the overlying skin was cleansed with 70% Isopropyl alcohol a total of 12mL of 0.5% Bupivacaine plain was given a local nerve block around the left ankle. The patient's left foot and ankle were scrubbed, prepped and draped in the usual aseptic fashion. The patient's left foot was elevated for several minutes and the left thigh pneumatic tourniquet was inflated to 300mmHg. A two small incisions were made to the left ankle skin - 1 was made to the medial aspect and the other to the anterior medial aspect. Blunt dissection was completed down to the distal tibia bone of the ankle fusion site. The bone was noted to be hard and viable to the cortex. A small drill was used to get through the cortex in order to get a bone biopsy. Using the Jakob bone biopsy kit a sample of bone was obtained from each site and sent to microbiology and pathology. The bone was noted to be soft and yellow in appearance but there was some bleeding too. There was no maloder, no fluctuance, no purulence from these sites. These bone biopsies were taken in correspondence of the imaging findings of chronic osteomyelitis. Intraoperative fluoroscopy was utilized to aid guidance of the biopsies. The sites were flushed out with copious amounts of normal saline solution. The sites were packed with calcium sulfate mixed with 500mg of Vancomycin powder. The skin was reapproximated using 3-0 Nylon. The wound site was noted to have nonviable tissue and measured 1cm x 1cm and down to and including fascia layer, there was some edema and purulence localized to the site. This ulcer was debrided in excisional fashion using a 15 blade down to and including fascia layer to healthy viable tissue, the area debrided measured 1cm x 1cm and down to and including the fascia layer. A culture was obtained and sent to microbiology. There was no probe to bone or tracking to the site of the chronic osteomyelitis. It does not seem directly related but it is possible that it is. The tissue planes were intact. Remaining tissue was noted to be healthy and viable. A dressing was applied which consisted of Betadine adaptic, 4x4 gauze, Kerlix and cydney dressing. The pneumatic tourniquet was deflated (total tourniquet time was 48 minutes), and there was immediate return of warmth and perfusion to the foot and all 5 toes. Patient was given dose of 2g of IV Ancef at this point. The patient tolerated the above procedure well and anesthesia well with no complications. Post operative orders were placed. Post operative instructions were reviewed with patient both written and verbal. He is going to follow up with me next week in office, but sooner if needed. Surgical Findings: As noted above Complications Complications: No
--- NOTE | 2025-01-29 12:45 | PCM.DC ---
Discharge Instructions DC O2, CPAP, BIPAP needs Home O2 Discharge instructions: No Dressing / Incision Weight Bearing Status: Partial weight bearing (Limiting weightbearing on left foot as much as possible) Keep extremity elevated above heart level: Operative Extremity (Keep left foot elevated at least 50 minutes of every hour) Dressing / Incision Call your doctor if your incision/area has: Continuous Slow Oozing, Sudden Increased Bleeding and Foul Smelling Discharge Call your doctor if you observe: Fever of 101 or Higher, Shortness of breath, Chest pain, Increased palpitations (irregular heartbeat), Calf discomfort and Uncontrolled pain Change Dressing in: do not change dressing Remove Dressing in: do not remove dressing Cleanse incision/area with: Keep Dressing Clean & Dry Follow Up Care Please Follow Up With: Sergio Neil DPM When: next week in office, but sooner if needed. [phone] - office number [phone] - Dr. Neil cell - please call if needed Test Results: Test results from this visit will be discussed in further detail at your follow-up appointment, if applicable. Discharge Plan Admission Attending Provider: Sergio Neil Primary Care Provider: Care Physician,No Primary Instructions Print Language: Chinese Discharge Orders/Prescriptions Prescriptions: New hydrocodone-acetaminophen 5-325 mg tablet 1 tab PO Q6H PRN (Reason: pain) 4 Days Qty: 14 0RF Continued ibuprofen [Advil] 200 mg tablet 400 mg PO Q4H Referrals / Follow Up: Care Physician,No Primary [Primary Care Provider, Medical] Disposition Disposition (needs filled in before D/C Order can be placed): Home, Self Care
--- NOTE | 2025-01-29 12:47 | PCM.POST.ANE ---
Anesthesia: Postop Eval I Current Vital Signs Temperature: 97.2 F Pulse Rate: 62 Blood Pressure: 107/60 Respiratory Rate: 12 Pulse Ox: 98 Oxygen Delivery Method: Room Air Assessment Airway patent: Yes Spontaneous unlabored respirations: Yes Mental status: Asleep nausea: No Vomiting: No Anesthesia Complication: No Fluid Hydration Crystalloid volume administer (ml): 1,200 Total IV fluid infused: 1,200 Progress Note Anesthesia document: Postop Eval 1 completed: Yes
--- NOTE | 2025-01-29 13:05 | POSTOPAN2_ITS ---
Anesthesia Postop Eval I Sum Postop Eval Completion status Anesthesia document: Postop Eval 1 completed: Yes Anesthesia Postop Eval I Summary Anesthesia Postop Eval I Summary: Anesthesia Postop Eval I: Assessment Summary Airway patent Yes 01/29/25 12:48 SALES AND MANAGEMENT TRAINEE.SHOF Spontaneous unlabored Yes 01/29/25 12:48 SALES AND MANAGEMENT TRAINEE.SHOF respirations Mental status Asleep 01/29/25 12:48 SALES AND MANAGEMENT TRAINEE.SHOF nausea No 01/29/25 12:48 SALES AND MANAGEMENT TRAINEE.SHOF Vomiting No 01/29/25 12:48 SALES AND MANAGEMENT TRAINEE.SHOF Anesthesia Postop Eval I: Fluid Summary Crystalloid volume administer 1,200 01/29/25 12:48 SALES AND MANAGEMENT TRAINEE.SHOF (ml) Colloids volume administered ( ml) Blood Product volume administered (ml) Total IV fluid infused 1,200 01/29/25 12:48 SALES AND MANAGEMENT TRAINEE.SHOF Anesthesia Postop Eval I: Summary Notes Anesthesia Complication No 01/29/25 12:48 SALES AND MANAGEMENT TRAINEE.SHOF Anesthesia Complication Comment: Post-operative progress note Anesthesia: Postop Eval II Evaluation Mental status: Awake Pain Level: 0 nausea: No Vomiting: No
--- NOTE | 2025-01-29 13:05 | PCM.POSTANE2 ---
Anesthesia Postop Eval I Sum Postop Eval Completion status Anesthesia document: Postop Eval 1 completed: Yes Anesthesia Postop Eval I Summary Anesthesia Postop Eval I Summary: Anesthesia Postop Eval I: Assessment Summary Airway patent Yes 01/29/25 12:48 [email or web address] Spontaneous unlabored Yes 01/29/25 12:48 [email or web address] respirations Mental status Asleep 01/29/25 12:48 [email or web address] nausea No 01/29/25 12:48 [email or web address] Vomiting No 01/29/25 12:48 [email or web address] Anesthesia Postop Eval I: Fluid Summary Crystalloid volume administer 1,200 01/29/25 12:48 [email or web address] (ml) Colloids volume administered ( ml) Blood Product volume administered (ml) Total IV fluid infused 1,200 01/29/25 12:48 [email or web address] Anesthesia Postop Eval I: Summary Notes Anesthesia Complication No 01/29/25 12:48 [email or web address] Anesthesia Complication Comment: Post-operative progress note Anesthesia: Postop Eval II Evaluation Mental status: Awake Pain Level: 0 nausea: No Vomiting: No
[2025-01-29] MEDS: HYDROcodone Bitartrate/Apap 5/325 Tablet PO (14:30)
--- NOTE | 2025-01-29 14:30 | RAD_ITS ---
PROCEDURE: ANKLE MIN 3 VIEWS 01/29/2025 REASON FOR EXAM: POSTOP PODIATRY SURGERY Pain. TECHNIQUE: Procedure Code: [id number] Modality: DX Procedure: ANKLE MIN 3 VIEWS Laterality: Left COMPARISON: January 29, 2025 12 November 2024 FINDINGS: Bones: Radiographs of the left ankle demonstrate ORIF plate and screw fixation with abhishek-implant lucencies in the tibial implant compatible with hardware loosening. Persistent fracture plane is suggested in the distal tibia. A vascular stent is noted posteriorly. Screw tract lucencies project within the tarsal row. Mild diffuse soft tissue swelling with small ankle effusion. RAD/Ankle min 3 Views IMPRESSION: Previous ORIF plate and screw fixation with persistent tibial fracture lucencie s and findings suggesting hardware loosening within the tibial component. No acute fracture. Reading Location: [id number]
== END 2025-01-29 15:02 | disposition home or self-care (01) ==
LOC: SDC 09:58 → AC 09:59
PROVIDERS: Anesthesiology; Referring Provider Podiatrist; Visit Provider Podiatrist
PROC: (CPT 20245; principal; 2025-01-29 11:15)
DX: M86.672 Other chronic osteomyelitis, left ankle and foot (principal); L02.416 Cutaneous abscess of left lower limb; F17.290 Nicotine dependence, other tobacco product, uncomplicated
CPT/HCPCS: 20245; 11043; 01360; 73610; 73620; 76000; 84132; 87015; 87070; 87075; 87077; 87102; 87116; 87176; 87186; 87205; 87206; 88307; 88311; C1713